=== PATIENT | female | born 1955 | race Caucasian/White ===

== ENCOUNTER → 2017-12-30 | Outpatient (CLI) | payer BC ==
[~2017-12-30] MED LIST: ALPR.5T PO; ATEN100T88 PO; CIPR750T23 PO; LIOTHYSO5 PO; LVT.112T PO; MECL-106 PO; ONDA4TAB11 PO; POTA20TA15 PO; SIMV40TA4 PO; TRIA1TAB2 PO; VENL150C PO
--- NOTE | 2017-12-30 10:03 | Diagnostic Imaging Report ---
INDICATION: Routine screening. COMPARISON: 08/19/2016 and 07/01/2015. TECHNIQUE: Screening digital mammography was performed bilaterally with a Computer Aided Detection (CAD) system. 3D tomographic images were obtained and reviewed. FINDINGS: Scattered fibroglandular densities are identified bilaterally. The parenchymal pattern is stable. No dominant mass or malignant appearing microcalcifications are seen. The axillae are unremarkable. IMPRESSION: No mammographic features suspicious for malignancy are identified. ACR BI-RADS Category 1: Negative. Result letter will be mailed to the patient. Note: At least 10% of breast cancer is not imaged by mammography. Dictated by: Dictated on workstation # [id number]
== END ==
LOC: RAD 08:18
PROVIDERS: ATTEND Nurse Practitioner Family
DX: Z12.31 Encounter for screening mammogram for malignant neoplasm of breast (principal)
CPT/HCPCS: 77067

== ENCOUNTER 2018-03-10 16:23 | Emergency (ER) | payer BC ==
[~2018-03-10] VITALS: Ht 170.2 cm; Wt 90.7 kg
[~2018-03-10 16:23] MED LIST changes: -MECL-106 PO; -ONDA4TAB11 PO
--- OUTSIDE RECORDS SUMMARY | 2018-03-10 16:28 | XMS REPORT | Clinical Summary ---
Author Author [facility] Organization [facility] Address Unknown Phone Unavailable Care Team Providers Care Principal [employer] Name Role Phone Arun Niño MD PCP Gracia Antony MD Unavailable Sushma Kelley MD Unavailable Source Comments Some departments are not documenting in the electronic medical record. If you do not see the information that you expected, contact Release of Information in the Health Information Management department at [phone] for further assistance in locating additional records.[facility] Allergies No Known Allergies Current Medications Not on file Active Problems Not on file Social History Tobacco Use Types Packs/Day Years Used Date Never Assessed Sex Assigned at Date Recorded Not on file Last Filed Vital Signs Vital Sign Reading Time Taken Blood Pressure 107/57 09/25/2007 11:59 AM [employer] Pulse 60 09/25/2007 11:59 AM [employer] Temperature 37.4 C (99.3 F) 09/25/2007 8:26 AM [employer] Respiratory Rate - - Oxygen Saturation 96% 09/25/2007 11:59 AM [employer] Inhaled Oxygen - - Concentration Weight 107.5 kg (237 lb) 09/25/2007 8:26 AM [employer] Height 170.2 cm (5' 7") 09/25/2007 8:26 AM [employer] Body Mass Index 37.12 09/25/2007 8:26 AM [employer] Plan of Treatment Health Maintenance Due Date Last Done Comments PHYSICAL (COMPREHENSIVE) 1962 EXAM PERTUSSIS VACCINE 1966 HIV SCREENING 1970 TETANUS VACCINE 1972 CERVICAL CANCER SCREENING 1985 BREAST CANCER SCREENING 1995 COLORECTAL CANCER 2005 SCREENING SHINGLES VACCINE 2015 INFLUENZA VACCINE 06/19/2018 HEPATITIS C SCREENING Completed 09/21/2007 Results Not on filefrom Last 3 Months
--- OUTSIDE RECORDS SUMMARY | 2018-03-10 16:30 | XMS REPORT | CCD ---
Author Author Betty Suárez MD, [facility] Address [address] [place] [address] Phone Care Team Providers Care Ug Designer Name Role Phone PP Unavailable CCM Unavailable Summary Purpose Interface Exchange Insurance Providers Payer name Policy type / Coverage type Covered libertarian ID Effective Begin Date Effective End Date Blue Cross Blue [facility] Blue Cross/[employer] [id number] 2017 Unknown Family history Mother Diagnosis Age At Onset Heart disease Unknown Father Diagnosis Age At Onset Stroke Unknown Heart Attack Unknown Sister Diagnosis Age At Onset Diabetes mellitus Type 2 Unknown Social History Social History Element Codes Description Effective Dates Employment Unknown 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 - [employer]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 - now working for [employer] Started May 2017 09/29/2017 Marital status Unknown 01/21/2015 Number of children Unknown 1 01/21/[address]: 554943602 Has never smoked or chewed tobacco 01/21/2015 Alcohol history Unknown occasionally drinks alcohol 01/21/2015 Allergies, Adverse Reactions, Alerts Allergies, Adverse Reactions, Alerts data not found Past Medical History Illness Codes Condition Status Onset Date Resolved Date Atrophy of thyroid (acquired) ICD-9: 244.8 ICD-10: E03.4 Active 09/29/2017 Unknown Encounter for general adult medical examination without abnormal findings ICD-9: V70.0 ICD-10: Z00.00 Active 09/29/2017 Unknown Essential (primary) hypertension ICD-9: 401.9 ICD-10: I10 Active 07/25/2016 Unknown Mixed hyperlipidemia ICD-9: 272.4 ICD-10: E78.2 Active 06/20/2016 Unknown Hyperglycemia, unspecified ICD-9: 790.29 ICD-10: R73.9 Active 03/25/2017 Unknown Hypothyroidism, unspecified ICD-9: 244.9 ICD-10: E03.9 Active 06/20/2016 Unknown Acute recurrent maxillary sinusitis ICD-9: 461.0 ICD-10: J01.01 Active 09/26/2016 Unknown Cough ICD-9: 786.2 ICD-10: R05 Active 09/26/2016 Unknown Encounter for screening mammogram for malignant neoplasm of breast ICD-9: V76.12 ICD-10: Z12.31 Active 07/25/2016 Unknown Other obesity due to excess calories ICD-9: 278.00 ICD-10: E66.09 Active 07/25/2016 Unknown Unspecified ovarian cyst, right side ICD-9: 620.2 ICD-10: N83.201 Active 07/25/2016 Unknown Hyperlipidemia Unknown Active 06/12/2015 Unknown Hypothryroidism Unknown Active 06/12/2015 Unknown HYPERLIPIDEMIA ICD-9: 272.4 Active 06/11/2015 Unknown HYPOTHYROIDISM ICD-9: 244.9 Active 06/11/2015 Unknown Hypertension Unknown Active 01/21/2015 Unknown Kidney cancer Unknown Active 01/21/2015 Unknown thyroid cancer Unknown Active 01/21/2015 Unknown ALLERGIC RHINITIS ICD- 9: 477.9 Active 01/20/2015 Unknown ESSENTIAL HYPERTENSION ICD-9: 401.9 Active 01/20/2015 Unknown Problems Condition Codes Effective Dates Condition Status Atrophy of thyroid (acquired) ICD-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.8 ICD-10: E03.4 09/29/2017 Active Encounter for general adult medical examination without abnormal findings ICD-9: V70.0 ICD-10: Z00.00 09/29/2017 Active Essential (primary) hypertension ICD-9: 401.9 ICD-10: I10 07/25/2016 Active Mixed hyperlipidemia ICD-9: 272.4 ICD-10: E78.2 06/20/2016 Active Hyperglycemia, unspecified ICD-9: 790.29 ICD-10: R73.9 03/25/2017 Active Hypothyroidism, unspecified ICD-9: 244.9 ICD-10: E03.9 06/20/2016 Active Acute recurrent maxillary sinusitis ICD-9: 461.0 ICD-10: J01.01 09/26/2016 Active Cough ICD-9: 786.2 ICD-10: R05 09/26/2016 Active Encounter for screening mammogram for malignant neoplasm of breast ICD-9: V76.12 ICD-10: Z12.31 07/25/2016 Active Other obesity due to excess calories ICD-9: 278.00 ICD-10: E66.09 07/25/2016 Active Unspecified ovarian cyst, right side ICD-9: 620.2 ICD-10: N83.201 07/25/2016 Active Hyperlipidemia Unknown 06/12/2015 Active Hypothryroidism Unknown 06/12/2015 Active HYPERLIPIDEMIA ICD-9: 272.4 06/11/2015 Active HYPOTHYROIDISM ICD-9: 244.9 06/11/2015 Active Hypertension Unknown 01/21/2015 Active Kidney cancer Unknown 01/21/2015 Active thyroid cancer Unknown 01/21/2015 Active ALLERGIC RHINITIS ICD- 9: 477.9 01/20/2015 Active ESSENTIAL HYPERTENSION ICD-9: 401.9 01/20/2015 Active Medications Medication Codes Instructions Start Date Stop Date Status Fill Instructions betamethasone valerate 0.1 % topical ointment RxNorm: 530736 1 Application TOP BID until lesions are healed, then as needed 09/29/2017 10/28/2017 Active atenolol 100 mg tablet RxNorm: 979276 1 Tablet(s) PO daily TAKE 1 BY MOUTH DAILY 08/19/2017 2018 Active D/C metoprolol 100mg atenolol 100 mg tablet RxNorm: 189235 1 Tablet(s) PO daily TAKE 1 BY MOUTH DAILY 08/09/2017 08/09/2017 Inactive metoprolol succinate ER 100 mg tablet,extended release 24 hr RxNorm: 666050 1 Tablet(s) PO daily 08/09/2017 08/18/2017 Inactive metoprolol succinate ER 100 mg tablet,extended release 24 hr RxNorm: 479108 1 Tablet(s) PO daily 08/09/2017 08/08/2017 Inactive atenolol 100 mg tablet RxNorm: 123823 1 Tablet(s) PO daily TAKE 1 BY MOUTH DAILY 07/14/2017 08/08/2017 Inactive Xanax 0.5 mg tablet RxNorm: 771106 TAKE ONE TABLET BY MOUTH EVERY 6 HOURS NEEDED FOR ANXIETY 05/31/2017 08/28/2017 Inactive Generic For:*XANAX 0.5 MG TABLET 05/30/2017 12:57:26 PM famotidine 20 mg tablet RxNorm: 979933 TAKE 1 BY MOUTH DAILY 07/25/2018 Active simvastatin 40 mg tablet RxNorm: 340734 TAKE 1 BY MOUTH DAILY 05/02/2017 07/25/2018 Active liothyronine 5 mcg tablet RxNorm: 267341 TAKE 1 BY MOUTH DAILY 02/21/2017 08/19/2017 Inactive venlafaxine ER 150 mg capsule,extended release 24 hr RxNorm: 416441 TAKE 1 BY MOUTH DAILY 02/21/2017 08/19/2017 Inactive levothyroxine 112 mcg tablet RxNorm: 443119 TAKE 1 BY MOUTH DAILY 02/21/2017 08/19/2017 Inactive atenolol 100 mg tablet RxNorm: 024969 TAKE 1 BY MOUTH DAILY 01/201707/13/2017 Inactive Xanax 0.5 mg tablet RxNorm: 950301 Tablet(s) TAKE ONE TABLET BY MOUTH EVERY 6 HOURS NEEDED FOR ANXIETY 02/08/201708/2017 Inactive Generic For:*XANAX 0.5 MG TABLET 01/03/2017 9:54:27 AM Topicort 0.25 % topical cream RxNorm: 40590 1 Application TOP UD 02/07/2017 02/16/2017 Inactive Xanax 0.5 mg tablet RxNorm: 263660 TAKE ONE TABLET BY MOUTH EVERY 6 HOURS NEEDED FOR ANXIETY 01/03/2017 02/07/2017 Inactive Generic For:*XANAX 0.5 MG TABLET 01/03/2017 9:54:27 AM Tamiflu 75 mg capsule RxNorm: 230062 1 Capsule(s) PO daily 11/2411/23/2016 Inactive Tamiflu 75 mg capsule RxNorm: 402182 1 Capsule(s) PO daily 11/2412/03/2016 Inactive Flonase Allergy Relief 50 mcg/actuation nasal spray, suspension RxNorm: 9041496 [place] 2 [place] NASAL daily 11/15/2016 03/14/2017 Inactive [SAVINGS FOR NON- COVERED DRUGS -- BIN:[id number], PCN: ASPROD1, Group: XXXXX, ID# [id number], Questions : . THIS IS NOT INSURANCE.] levothyroxine 112 mcg tablet RxNorm: 700129 TAKE 1 BY MOUTH DAILY 10/27/2016 02/20/2017 Inactive Diflucan 150 mg tablet RxNorm: 159077 1 Tablet(s) PO daily 10/10/2016 Inactive Diflucan 150 mg tablet RxNorm: 398011 1 Tablet(s) PO daily 10/17/2016 Inactive Augmentin 500 mg-125 mg tablet RxNorm: 963441 1 Tablet(s) PO TID 09/27/2016 10/03/2016 Inactive Kenalog 40 mg/mL suspension for injection RxNorm: 2178039 Milliliter(s) Inj 09/27/2016 09/27/2016 Inactive Xanax 0.5 mg tablet RxNorm: 631704 Tablet(s) TAKE ONE TABLET BY MOUTH EVERY 6 HOURS NEEDED FOR ANXIETY 09/03/2016 Inactive Contrave 8 mg-90 mg tablet,extended release RxNorm: 0049520 2 Tablet(s) PO BID 06/21/2016 03/24/2017 Inactive may give 90 day supply if covered by insurance-pt bringing copay card Topicort 0.25 % topical cream RxNorm: 60945 1 Application TOP UD 06/21/2016 06/30/2016 Inactive Xanax 0.5 mg tablet RxNorm: 649407 Tablet(s) TAKE ONE TABLET BY MOUTH EVERY 6 HOURS NEEDED FOR ANXIETY 05/06/2016 Inactive Generic For:*XANAX 0.5 MG TABLET N O T I C E PRESCRIPTION PREVIOUSLY AUTHORIZED BY DOCTOR:TITA SAMSON 04/14/2015 10:10:53 AM Xanax 0.5 mg tablet RxNorm: 696597 Tablet(s) TAKE ONE TABLET BY MOUTH EVERY 6 HOURS NEEDED FOR ANXIETY 05/04/2016 Inactive Generic For:*XANAX 0.5 MG TABLET N O T I C E PRESCRIPTION PREVIOUSLY AUTHORIZED BY DOCTOR:TITA SAMSON 04/14/2015 10:10:53 AM liothyronine 5 mcg tablet RxNorm: 952931 1 Tablet(s) PO daily 04/16/2016 02/20/2017 Inactive famotidine 20 mg tablet RxNorm: 368171 1 Tablet(s) PO daily 04/10/2017 Inactive atenolol 100 mg tablet RxNorm: 777215 1 Tablet(s) PO daily 02/20/2017 Inactive simvastatin 40 mg tablet RxNorm: 107596 1 Tablet(s) PO daily 04/10/2017 Inactive levothyroxine 112 mcg tablet RxNorm: 701704 1 Tablet(s) PO daily 04/16/2016 10/12/2016 Inactive venlafaxine ER 150 mg capsule,extended release 24 hr RxNorm: 142305 1 Capsule(s) PO daily 04/16/2016 02/20/2017 Inactive Flonase Allergy Relief 50 mcg/actuation nasal spray, suspension RxNorm: 6844981 [place] 2 [place] NASAL daily 11/14/2015 03/12/2016 Inactive [SAVINGS FOR NON- COVERED DRUGS -- BIN:[id number], PCN: ASPROD1, Group: XXXXX, ID# [id number], Questions : . THIS IS NOT INSURANCE.] Zithromax Z-Jean 250 mg tablet RxNorm: 363184 1 Tablet(s) PO 04/15/2016 Inactive zpack x 1 Xanax 0.5 mg tablet RxNorm: 092432 Tablet(s) TAKE ONE TABLET BY MOUTH EVERY 6 HOURS NEEDED FOR ANXIETY 10/23/201510/2015 Inactive Generic For:*XANAX 0.5 MG TABLET N O T I C E PRESCRIPTION PREVIOUSLY AUTHORIZED BY DOCTOR:TITA SAMSON 04/14/2015 10:10:53 AM Xanax 0.5 mg tablet RxNorm: 412242 Tablet(s) TAKE ONE TABLET BY MOUTH EVERY 6 HOURS NEEDED FOR ANXIETY 06/19/2015 Inactive Generic For:*XANAX 0.5 MG TABLET N O T I C E PRESCRIPTION PREVIOUSLY AUTHORIZED BY DOCTOR:TITA SAMSON 04/14/2015 10:10:53 AM Xanax 0.5 mg tablet RxNorm: 633639 TAKE ONE TABLET BY MOUTH EVERY 6 HOURS NEEDED FOR ANXIETY 04/15/2015 05/13/2015 Inactive Generic For:*XANAX 0.5 MG TABLET N O T I C E PRESCRIPTION PREVIOUSLY AUTHORIZED BY DOCTOR:TITA SAMSON 04/14/2015 10:10:53 AM Levaquin 500 mg tablet RxNorm: 298168 1 Tablet(s) PO daily 03/16/2015 Inactive Levaquin 500 mg tablet RxNorm: 135286 1 Tablet(s) PO daily 03/09/2015 Inactive amoxicillin 500 mg capsule RxNorm: 801794 1 Capsule(s) PO TID 02/21/2015 03/02/2015 Inactive instructed to take probiotic while on abt amoxicillin 500 mg capsule RxNorm: 435919 1 Capsule(s) PO TID 02/21/2015 02/20/2015 Inactive instructed to take probiotic while on abt Flonase Allergy Relief 50 mcg/actuation nasal spray, suspension RxNorm: 2 [place] NASAL daily 02/20/2015 06/19/2015 Inactive [SAVINGS FOR NON-COVERED DRUGS -- BIN:[id number], PCN: ASPROD1, Group: XXXXX, ID# [email or web address], Questions: [phone]. THIS IS NOT INSURANCE.] Xanax 0.5 mg tablet RxNorm: 791094 1 Tablet(s) PO Q6 201404/15/2015 Inactive atenolol 100 mg tablet RxNorm: 109638 1 Tablet(s) PO daily 10/201404/15/2016 Inactive famotidine 20 mg tablet RxNorm: 124637 1 Tablet(s) PO daily 10/201404/15/2016 Inactive levothyroxine 112 mcg tablet RxNorm: 410181 1 Tablet(s) PO daily 02/18/2015 04/15/2016 Inactive famotidine 20 mg tablet RxNorm: 840874 1 Tablet(s) PO daily 10/201402/17/2015 Inactive simvastatin 40 mg tablet RxNorm: 970528 1 Tablet(s) PO daily 04/15/2016 Inactive venlafaxine ER 150 mg capsule,extended release 24 hr RxNorm: 972689 1 Capsule(s) PO daily 02/18/2015 04/15/2016 Inactive liothyronine 5 mcg tablet RxNorm: 958370 1 Tablet(s) PO daily 02/18/2015 04/15/2016 Inactive Flonase Allergy Relief 50 mcg/actuation nasal spray, suspension RxNorm: 2 [place] NASAL daily 01/21/2015 02/19/2015 Inactive [SAVINGS FOR NON-COVERED DRUGS -- BIN:[id number], PCN: ASPROD1, Group: XXXXX, ID# [id number], Questions: [phone]. THIS IS NOT INSURANCE.] triamcinolone acetonide 40 mg/mL suspension for injection RxNorm: 4793105 1 Milliliter(s) Inj 01/21/2015 01/21/2015 Inactive [SAVINGS FOR NON-COVERED DRUGS -- BIN:613731, PCN: ASPROD1, Group: XXXXX, ID# [email or web address], Questions: [phone]. THIS IS NOT INSURANCE.] atenolol 100 mg tablet RxNorm: 385841 1 Tablet(s) PO daily No Start Date 02/17/2015 Inactive liothyronine 5 mcg tablet RxNorm: 399414 1 Tablet(s) PO daily No Start Date 02/17/2015 Inactive Xanax 0.5 mg tablet RxNorm: 365453 1 Tablet(s) PO Q6 No Start Date 02/17/2015 Inactive Zithromax Z-Jean 250 mg tablet RxNorm: 271215 1 Tablet(s) PO No Start Date 11/13/2015 Inactive zpack x 1 simvastatin 40 mg tablet RxNorm: 383653 1 Tablet(s) PO daily No Start Date 02/17/2015 Inactive venlafaxine ER 150 mg capsule,extended release 24 hr RxNorm: 559196 1 Capsule(s) PO daily No Start Date 02/17/2015 Inactive levothyroxine 112 mcg capsule RxNorm: 441269 1 Capsule(s) PO daily No Start Date 02/17/2015 Inactive Medication Administered Medication Codes Instructions Start Date Status Kenalog 40 mg/mL suspension for injection RxNorm: 1232048 Milliliter 09/27/2016 No longer Active triamcinolone acetonide 40 mg/mL suspension for injection RxNorm: 8772004 1Milliliter 01/21/2015 No longer Active Immunizations Vaccine Codes Date Status Influenza CVX: 141 03/19/2014 completed Assessments Condition Codes Effective Dates Encounter for general adult medical examination without abnormal findings ICD-10: Z00.00 ICD-9: V70.0 09/29/2017 Atrophy of thyroid (acquired) ICD-10: E03.4 ICD-9: 244.8 09/29/2017 Mixed hyperlipidemia ICD-10: E78.2 ICD-9: 272.4 09/29/2017 Essential (primary) hypertension ICD-10: I10 ICD-9: 401.9 09/29/2017 Hypothyroidism, unspecified ICD-10: E03.9 ICD-9: 244.9 03/25/2017 Hyperglycemia, unspecified ICD-10: R73.9 ICD-9: 790.29 03/25/2017 Acute recurrent maxillary sinusitis ICD-10: J01.01 ICD-9: 461.0 09/27/2016 Cough ICD-10: R05 ICD-9: 786.2 09/27/2016 Encounter for screening mammogram for malignant neoplasm of breast ICD-10: Z12.31 ICD-9: V76.12 07/26/2016 Other obesity due to excess calories ICD-10: E66.09 ICD-9: 278.00 07/26/2016 Unspecified ovarian cyst, right side ICD-10: N83.201 ICD-9: 620.2 07/26/2016 HYPERLIPIDEMIA ICD-9: 272.4 06/12/2015 HYPOTHYROIDISM ICD-9: 244.9 06/12/2015 ESSENTIAL HYPERTENSION ICD-9: 401.9 06/12 ALLERGIC RHINITIS ICD-9: 477.9 2014 Reason For Visit Reason For Visit Effective Dates Notes hyperlipidemia 09/29/2017 hyperlipidemia 03/25/2017 on simvastatin cough 09/27/2016 depression 07/26/2016 on simvastatin depression 06/21/2016 on simvastatin depression 12/19/2015 on simvastatin depression 06/12/2015 on simvastatin cough 01/21/2015 Results Observation Observation Code Item Item Code Result Date Comp Metabolic Rhq327 NA 141 mEq/L 09/29/2017 Comp Metabolic Zeg675 K 4.3 mEq/L 09/29/2017 Comp Metabolic Wdp006 CL 106 mEq/L 09/29/2017 Comp Metabolic Nsq564 CO2 28.0 mEq/L 09/29/2017 Comp Metabolic Sjy115 ANION GAP 11 09/29/2017 Comp Metabolic Ksg928 GLUCOSE 105 mg/dL 09/29/2017 Comp Metabolic Mcz220 Creat 0.8 mg/dL 09/29/2017 Comp Metabolic Hva071 eGFR 73 ml/min/1.73m2 09/29/2017 Comp Metabolic Boq574 BUN 15 mg/dL 09/29/2017 Comp Metabolic Iyu724 B/C Ratio 17.9 Ratio 09/29/2017 Comp Metabolic Axv024 CALCIUM 9.7 mg/dL 09/29/2017 Comp Metabolic Jqk299 ALK PHOS 103 U/L 09/29/2017 Comp Metabolic Vto392 AST(SGOT) 17 U/L 09/29/2017 Comp Metabolic Ngy081 ALT(SGPT) 22 U/L 09/29/2017 Comp Metabolic Kml709 BILI T 0.6 mg/dL 09/29/2017 Comp Metabolic Cih015 ALBUMIN 4.0 g/dL 09/29/2017 Comp Metabolic Caj355 TPRO 7.0 g/dL 09/29/2017 Comp Metabolic Ydy073 GLOB 3.0 g/dL 09/29/2017 Comp Metabolic Hoi466 A/G Ratio 1.3 Ratio 09/29/2017 Comp Metabolic Ifz941 Osmo 282 mOsmo 09/29/2017 Free T4 Die997 FREE T4 1.20 ng/dL 09/29/2017 Cbc With Differential Ord2 WBC 5.74 K/ul 09/29/2017 Cbc With Differential Ord2 RBC 4.84 M/ul 09/29/2017 Cbc With Differential Ord2 HGB 14.1 g/dl 09/29/2017 Cbc With Differential Ord2 Neut% 67.7 % 09/29/2017 Cbc With Differential Ord2 HCT 43.0 % 09/29/2017 Cbc With Differential Ord2 MCV 88.8 fl 09/29/2017 Cbc With Differential Ord2 Lymph% 20.7 % 09/29/2017 Cbc With Differential Ord2 MCH 29.1 pg 09/29/2017 Cbc With Differential Ord2 [place]% 9.4 % 09/29/2017 Cbc With Differential Ord2 MCHC 32.8 pg 09/29/2017 Cbc With Differential Ord2 Eos% 1.9 % 09/29/2017 Cbc With Differential Ord2 PLT 283 K/ul 09/29/2017 Cbc With Differential Ord2 Baso% 0.3 % 09/29/2017 Cbc With Differential Ord2 RDW 13.6 % 09/29/2017 Cbc With Differential Ord2 Neut ABS# 3.88 K/ul 09/29/2017 Cbc With Differential Ord2 Lymph ABS# 1.19 K/ul 09/29/2017 Cbc With Differential Ord2 [place] ABS# 0.5 K/ul 09/29/2017 Cbc With Differential Ord2 Eos ABS# 0.1 K/ul 09/29/2017 Cbc With Differential Ord2 Baso ABS# 0.0 K/ul 09/29/2017 Lipid Ord30 CHOL 177 mg/dL 09/29/2017 Lipid Ord30 HDL 49.0 mg/dl 09/29/2017 Lipid Ord30 TRIG 150 mg/dL 09/29/2017 Lipid Ord30 LDL 98 mg/dL 09/29/2017 Lipid Ord30 C/HDL 3.6 Ratio 09/29/2017 Tsh Ord6 hTSH II 0.10 uIU/mL 09/29/2017 Cbc With Differential Ord2 WBC 4.95 K/ul 03/25/2017 Cbc With Differential Ord2 RBC 4.64 M/ul 03/25/2017 Cbc With Differential Ord2 HGB 13.9 g/dl 03/25/2017 Cbc With Differential Ord2 Neut% 54.4 % 03/25/2017 Cbc With Differential Ord2 HCT 42.5 % 03/25/2017 Cbc With Differential Ord2 MCV 91.6 fl 03/25/2017 Cbc With Differential Ord2 Lymph% 33.1 % 03/25/2017 Cbc With Differential Ord2 MCH 30.0 pg 03/25/2017 Cbc With Differential Ord2 [place]% 9.5 % 03/25/2017 Cbc With Differential Ord2 MCHC 32.7 pg 03/25/2017 Cbc With Differential Ord2 Eos% 2.6 % 03/25/2017 Cbc With Differential Ord2 PLT 296 K/ul 03/25/2017 Cbc With Differential Ord2 Baso% 0.4 % 03/25/2017 Cbc With Differential Ord2 RDW 13.3 % 03/25/2017 Cbc With Differential Ord2 Neut ABS# 2.69 K/ul 03/25/2017 Cbc With Differential Ord2 Lymph ABS# 1.64 K/ul 03/25/2017 Cbc With Differential Ord2 [place] ABS# 0.5 K/ul 03/25/2017 Cbc With Differential Ord2 Eos ABS# 0.1 K/ul 03/25/2017 Cbc With Differential Ord2 Baso ABS# 0.0 K/ul 03/25/2017 Lipid Ord30 CHOL 232 mg/dL 03/25/2017 Lipid Ord30 HDL 45.0 mg/dl 03/25/2017 Lipid Ord30 TRIG 244 mg/dL 03/25/2017 Lipid Ord30 LDL 138 mg/dL 03/25/2017 Lipid Ord30 C/HDL 5.2 Ratio 03/25/2017 Tsh Ord6 hTSH II 0.08 uIU/mL 03/25/2017 Comp Metabolic Puq706 NA 140 mEq/L 03/25/2017 Comp Metabolic Tbr766 K 4.1 mEq/L 03/25/2017 Comp Metabolic Oyw409 CL 105 mEq/L 03/25/2017 Comp Metabolic Pgp655 CO2 26.0 mEq/L 03/25/2017 Comp Metabolic Aji262 ANION GAP 13 03/25/2017 Comp Metabolic Www441 GLUCOSE 127 mg/dL 03/25/2017 Comp Metabolic Xpt849 Creat 0.9 mg/dL 03/25/2017 Comp Metabolic Myb585 eGFR 71 ml/min/1.73m2 03/25/2017 Comp Metabolic Bst941 BUN 13 mg/dL 03/25/2017 Comp Metabolic Bho355 B/C Ratio 15.1 Ratio 03/25/2017 Comp Metabolic Xzg964 CALCIUM 9.4 mg/dL 03/25/2017 Comp Metabolic Hlb284 ALK PHOS 112 U/L 03/25/2017 Comp Metabolic Zyd439 AST(SGOT) 21 U/L 03/25/2017 Comp Metabolic Lkl577 ALT(SGPT) 26 U/L 03/25/2017 Comp Metabolic Ksp912 BILI T 0.6 mg/dL 03/25/2017 Comp Metabolic Vlp122 ALBUMIN 4.0 g/dL 03/25/2017 Comp Metabolic Vrh523 TPRO 6.6 g/dL 03/25/2017 Comp Metabolic Qex297 GLOB 2.6 g/dL 03/25/2017 Comp Metabolic Isi752 A/G Ratio 1.5 Ratio 03/25/2017 Comp Metabolic Kyi404 Osmo 281 mOsmo 03/25/2017 Free T4 Uag212 FREE T4 1.02 ng/dL 03/25/2017 %Hba1C Buk559 % HbA1c 63706-1 5.7 % 03/25/2017 %Hba1C Nik130 Gluc Ave 117 mg/dL 03/25/2017 Free T4 Hux425 FREE T4 0.86 ng/dL 06/21/2016 Cbc With Differential Ord2 WBC 4.67 K/ul 06/21/2016 Cbc With Differential Ord2 RBC 4.66 M/ul 06/21/2016 Cbc With Differential Ord2 HGB 13.6 g/dl 06/21/2016 Cbc With Differential Ord2 Neut% 55.9 % 06/21/2016 Cbc With Differential Ord2 HCT 41.6 % 06/21/2016 Cbc With Differential Ord2 MCV 89.3 fl 06/21/2016 Cbc With Differential Ord2 Lymph% 30.4 % 06/21/2016 Cbc With Differential Ord2 MCH 29.2 pg 06/21/2016 Cbc With Differential Ord2 [place]% 10.5 % 06/21/2016 Cbc With Differential Ord2 MCHC 32.7 pg 06/21/2016 Cbc With Differential Ord2 Eos% 3.0 % 06/21/2016 Cbc With Differential Ord2 PLT 273 K/ul 06/21/2016 Cbc With Differential Ord2 Baso% 0.2 % 06/21/2016 Cbc With Differential Ord2 RDW 13.3 % 06/21/2016 Cbc With Differential Ord2 Neut ABS# 2.61 K/ul 06/21/2016 Cbc With Differential Ord2 Lymph ABS# 1.42 K/ul 06/21/2016 Cbc With Differential Ord2 [place] ABS# 0.5 K/ul 06/21/2016 Cbc With Differential Ord2 Eos ABS# 0.1 K/ul 06/21/2016 Cbc With Differential Ord2 Baso ABS# 0.0 K/ul 06/21/2016 Lipid Ord30 CHOL 209 mg/dL 06/21/2016 Lipid Ord30 HDL 48.0 mg/dl 06/21/2016 Lipid Ord30 TRIG 199 mg/dL 06/21/2016 Lipid Ord30 LDL 121 mg/dL 06/21/2016 Lipid Ord30 C/HDL 4.4 Ratio 06/21/2016 Comp Metabolic Tsx036 NA 139 mEq/L 06/21/2016 Comp Metabolic Xjx008 K 4.2 mEq/L 06/21/2016 Comp Metabolic Nqn083 CL 104 mEq/L 06/21/2016 Comp Metabolic Gan753 CO2 28.0 mEq/L 06/21/2016 Comp Metabolic Mtn937 ANION GAP 11 06/21/2016 Comp Metabolic Tgm136 GLUCOSE 112 mg/dL 06/21/2016 Comp Metabolic Gwx915 Creat 0.9 mg/dL 06/21/2016 Comp Metabolic Mwg809 eGFR 72 ml/min/1.73m2 06/21/2016 Comp Metabolic Kpa406 BUN 14 mg/dL 06/21/2016 Comp Metabolic Tor404 B/C Ratio 16.5 Ratio 06/21/2016 Comp Metabolic Xwj128 CALCIUM 9.2 mg/dL 06/21/2016 Comp Metabolic Qtm604 ALK PHOS 124 U/L 06/21/2016 Comp Metabolic Ogd620 AST(SGOT) 17 U/L 06/21/2016 Comp Metabolic Swa916 ALT(SGPT) 20 U/L 06/21/2016 Comp Metabolic Zov658 BILI T 0.5 mg/dL 06/21/2016 Comp Metabolic Abp725 ALBUMIN 3.9 g/dL 06/21/2016 Comp Metabolic Hoq475 TPRO 6.7 g/dL 06/21/2016 Comp Metabolic Eev060 GLOB 2.8 g/dL 06/21/2016 Comp Metabolic Cxa885 A/G Ratio 1.4 Ratio 06/21/2016 Comp Metabolic Akr922 Osmo 279 mOsmo 06/21/2016 Tsh Ord6 hTSH II 0.21 uIU/mL 06/21/2016 Tsh Ord6 hTSH II 0.11 uIU/mL 12/23/2015 Cbc With Differential Ord2 WBC 4.65 K/ul 12/23/2015 Cbc With Differential Ord2 RBC 4.73 M/ul 12/23/2015 Cbc With Differential Ord2 HGB 13.6 g/dl 12/23/2015 Cbc With Differential Ord2 Neut% 56.1 % 12/23/2015 Cbc With Differential Ord2 HCT 41.5 % 12/23/2015 Cbc With Differential Ord2 MCV 87.7 fl 12/23/2015 Cbc With Differential Ord2 Lymph% 30.8 % 12/23/2015 Cbc With Differential Ord2 MCH 28.8 pg 12/23/2015 Cbc With Differential Ord2 [place]% 10.3 % 12/23/2015 Cbc With Differential Ord2 MCHC 32.8 pg 12/23/2015 Cbc With Differential Ord2 Eos% 2.8 % 12/23/2015 Cbc With Differential Ord2 PLT 286 K/ul 12/23/2015 Cbc With Differential Ord2 Baso% 0.0 % 12/23/2015 Cbc With Differential Ord2 RDW 13.8 % 12/23/2015 Cbc With Differential Ord2 Neut ABS# 2.61 K/ul 12/23/2015 Cbc With Differential Ord2 Lymph ABS# 1.43 K/ul 12/23/2015 Cbc With Differential Ord2 [place] ABS# 0.5 K/ul 12/23/2015 Cbc With Differential Ord2 Eos ABS# 0.1 K/ul 12/23/2015 Cbc With Differential Ord2 Baso ABS# 0.0 K/ul 12/23/2015 Cbc With Differential Ord2 New Analyzer Notice Please note new ref ranges starting 10-01-2015 due to implemntation of new five part differential hematolgy analyzer. 12/23/2015 Urinalysis Ord28 U-Color Yellow 12/23/2015 Urinalysis Ord28 U-Clarity Clear 12/23/2015 Urinalysis Ord28 U-Gluc Negative 12/23/2015 Urinalysis Ord28 U-Bili Negative 12/23/2015 Urinalysis Ord28 U-Ketone Negative 12/23/2015 Urinalysis Ord28 U-SG 1.015 12/23/2015 Urinalysis Ord28 U-Blood Negative 12/23/2015 Urinalysis Ord28 U-pH 5.5 12/23/2015 Urinalysis Ord28 U-Protein Negative 12/23/2015 Urinalysis Ord28 U-Urobilin 0.2 E.U./dL E.U./dL 12/23/2015 Urinalysis Ord28 U-Nitrites Negative 12/23/2015 Urinalysis Ord28 U-Leuk Small 12/23/2015 Urinalysis Ord28 U-Bact TRACE 12/23/2015 Urinalysis Ord28 U-Squamous Epi 0-5 per/HPF 12/23/2015 Urinalysis Ord28 U-Crystal None per/HPF 12/23/2015 Urinalysis Ord28 U-Mucus None 12/23/2015 Urinalysis Ord28 U-Renal tubular epi None 12/23/2015 Urinalysis Ord28 U-RBC None per/HPF 12/23/2015 Urinalysis Ord28 U-Transitional epi None per/HPF 12/23/2015 Urinalysis Ord28 U-WBC 10-20 per/HPF 12/23/2015 Urinalysis Ord28 U-Cast None per/HPF 12/23/2015 Urinalysis Ord28 U-VOL VOLUME SUFFICIENT (10mL) 12/23/2015 Urinalysis Ord28 U-Yeast NEGATIVE 12/23/2015 Urinalysis Ord28 U-Com Urine saved if culture needed (specimen acceptable for 48 hours from collection if refrigerated) 12/23/2015 Comp Metabolic Obx355 NA 137 mEq/L 12/23/2015 Comp Metabolic Ijg234 K 4.1 mEq/L 12/23/2015 Comp Metabolic Vog542 CL 102 mEq/L 12/23/2015 Comp Metabolic Epn159 CO2 26.0 mEq/L 12/23/2015 Comp Metabolic Akp029 ANION GAP 13 12/23/2015 Comp Metabolic Ejz273 GLUCOSE 112 mg/dL 12/23/2015 Comp Metabolic Kkb476 Creat 0.9 mg/dL 12/23/2015 Comp Metabolic Sue428 eGFR 70 ml/min/1.73m2 12/23/2015 Comp Metabolic Qgv309 BUN 16 mg/dL 12/23/2015 Comp Metabolic Tyo734 B/C Ratio 18.2 Ratio 12/23/2015 Comp Metabolic Omk113 CALCIUM 9.5 mg/dL 12/23/2015 Comp Metabolic Asu442 ALK PHOS 117 U/L 12/23/2015 Comp Metabolic Oej253 AST(SGOT) 18 U/L 12/23/2015 Comp Metabolic Hjj532 ALT(SGPT) 22 U/L 12/23/2015 Comp Metabolic Ibg149 BILI T 0.6 mg/dL 12/23/2015 Comp Metabolic Grc523 ALBUMIN 4.1 g/dL 12/23/2015 Comp Metabolic Ylk943 TPRO 6.9 g/dL 12/23/2015 Comp Metabolic Bxf642 GLOB 2.8 g/dL 12/23/2015 Comp Metabolic Qte518 A/G Ratio 1.5 Ratio 12/23/2015 Comp Metabolic Vam552 Osmo 276 mOsmo 12/23/2015 Lipid Ord30 CHOL 194 mg/dL 12/23/2015 Lipid Ord30 HDL 48.0 mg/dl 12/23/2015 Lipid Ord30 TRIG 240 mg/dL 12/23/2015 Lipid Ord30 LDL 98 mg/dL 12/23/2015 Lipid Ord30 C/HDL 4.0 Ratio 12/23/2015 Free T4 [id number] FREE T4 1.00 ng/dL 12/23/2015 Free T4 Bln674 FREE T4 0.99 ng/dL 06/12/2015 Cbc With Differential Ord2 WBC 5.1 K/uL 06/12/2015 Cbc With Differential Ord2 LYM 1.4 K/uL 06/12/2015 Cbc With Differential Ord2 LYM% 27.9 % 06/12/2015 Cbc With Differential Ord2 NEUT/GRAN 3.4 K/uL 06/12/2015 Cbc With Differential Ord2 NEUT/GRAN % 65.8 % 06/12/2015 Cbc With Differential Ord2 MID 0.3 K/uL 06/12/2015 Cbc With Differential Ord2 MID% 6.3 % 06/12/2015 Cbc With Differential Ord2 RBC 4.70 M/uL 06/12/2015 Cbc With Differential Ord2 HGB 13.3 g/dL 06/12/2015 Cbc With Differential Ord2 HCT 42.8 % 06/12/2015 Cbc With Differential Ord2 MCV 91 fL 06/12/2015 Cbc With Differential Ord2 MCH 28 pg 06/12/2015 Cbc With Differential Ord2 MCHC 31 g/dL 06/12/2015 Cbc With Differential Ord2 PLT 281 K/uL 06/12/2015 Cbc With Differential Ord2 RDW 14.4 % 06/12/2015 Tsh Ord6 hTSH II 0.17 uIU/mL 06/12/2015 Lipid Ord30 CHOL 203 mg/dL 06/12/2015 Lipid Ord30 HDL 52.0 mg/dl 06/12/2015 Lipid Ord30 TRIG 145 mg/dL 06/12/2015 Lipid Ord30 LDL 122 mg/dL 06/12/2015 Lipid Ord30 C/HDL 3.9 Ratio 06/12/2015 Comp Metabolic Ypl344 NA 138 mEq/L 06/12/2015 Comp Metabolic Ayw819 K 4.4 mEq/L 06/12/2015 Comp Metabolic Tur207 CL 102 mEq/L 06/12/2015 Comp Metabolic Rli703 CO2 27.0 mEq/L 06/12/2015 Comp Metabolic Ylt900 ANION GAP 13 06/12/2015 Comp Metabolic Rco432 GLUCOSE 99 mg/dL 06/12/2015 Comp Metabolic Eyb637 Creat 0.9 mg/dL 06/12/2015 Comp Metabolic Xcn002 eGFR 67 ml/min/1.73m2 06/12/2015 Comp Metabolic Puw626 BUN 13 mg/dL 06/12/2015 Comp Metabolic Oof422 B/C Ratio 14.3 Ratio 06/12/2015 Comp Metabolic Wng452 CALCIUM 9.6 mg/dL 06/12/2015 Comp Metabolic Tgv528 ALK PHOS 109 U/L 06/12/2015 Comp Metabolic Rqc672 AST(SGOT) 15 U/L 06/12/2015 Comp Metabolic Kro066 ALT(SGPT) 17 U/L 06/12/2015 Comp Metabolic Esy131 BILI T 0.6 mg/dL 06/12/2015 Comp Metabolic Zqe218 ALBUMIN 4.0 g/dL 06/12/2015 Comp Metabolic Skl021 TPRO 6.8 g/dL 06/12/2015 Comp Metabolic Ekp782 GLOB 2.8 g/dL 06/12/2015 Comp Metabolic Ygl586 A/G Ratio 1.4 Ratio 06/12/2015 Comp Metabolic Unn610 Osmo 276 mOsmo 06/12/2015 Review of Systems System Result Effective Dates Constitutional No recent illness 2017 Constitutional No anorexia 09/29/2017 Constitutional No night sweats 2017 Constitutional No chills 09/29/2017 Constitutional No fever 09/29/2017 Eyes No eye discharge 09/29/2017 Eyes No eye erythema 09/29/2017 Ears/Nose/Throat/Neck No dizziness 2017 Ears/Nose/Throat/Neck No headache 2017 Cardiovascular No chest pain/pressure 07/2018 Cardiovascular No dyspnea 09/29/2017 Respiratory No chest congestion 2017 Respiratory No chest tightness 2017 Respiratory No cough 09/29/2017 Respiratory No dyspnea 09/29/2017 Gastrointestinal No abdominal pain 2017 Gastrointestinal No constipation 2017 Gastrointestinal No diarrhea 09/29/2017 Gastrointestinal No nausea 09/29/2017 Genitourinary/Nephrology No anuria/oliguria 09/29/2017 Genitourinary/Nephrology No dysuria 09/29 Musculoskeletal No stiffness 09/29/2017 Musculoskeletal No swelling 09/29/2017 Dermatologic No rash 09/29/2017 Dermatologic No sores 09/29/2017 Neurologic No alteration of consciousness 09/29/2017 Neurologic No mental status change 2017 Psychiatric No anxiety 09/29/2017 Psychiatric No depression 09/29/2017 Endocrine No dry or coarse skin 2017 Constitutional No recent illness 2016 Constitutional No anorexia 03/25/2017 Constitutional No night sweats 2016 Constitutional No chills 03/25/2017 Constitutional No fever 03/25/2017 Ears/Nose/Throat/Neck No dizziness 2016 Ears/Nose/Throat/Neck No headache 2016 Cardiovascular No chest pain/pressure 03/2017 Cardiovascular No dyspnea 03/25/2017 Respiratory No chest congestion 2016 Respiratory No chest tightness 2016 Respiratory No cough 03/25/2017 Respiratory No dyspnea 03/25/2017 Gastrointestinal No abdominal pain 2016 Gastrointestinal No constipation 2016 Gastrointestinal No diarrhea 03/25/2017 Gastrointestinal No nausea 03/25/2017 Genitourinary/Nephrology No anuria/oliguria 03/25/2017 Genitourinary/Nephrology No dysuria 03/25 Musculoskeletal No stiffness 03/25/2017 Musculoskeletal No swelling 03/25/2017 Dermatologic No rash 03/25/2017 Dermatologic No sores 03/25/2017 Neurologic No alteration of consciousness 03/25/2017 Neurologic No mental status change 2016 Eyes No eye discharge 03/25/2017 Eyes No eye erythema 03/25/2017 Psychiatric No anxiety 03/25/2017 Psychiatric No depression 03/25/2017 Endocrine No dry or coarse skin 2016 Constitutional recent illness 09/27/2016 Constitutional No anorexia 09/27/2016 Constitutional No night sweats 2016 Constitutional No chills 09/27/2016 Constitutional No diaphoresis 09/27/2016 Constitutional fatigue 09/27/2016 Constitutional No fever 09/27/2016 Constitutional No insomnia 09/27/2016 Constitutional No malaise 09/27/2016 Constitutional No weight loss 09/27/2016 Constitutional No weight gain 09/27/2016 Eyes No eye erythema 09/27/2016 Eyes No eye discharge 09/27/2016 Ears/Nose/Throat/Neck No dizziness 2016 Ears/Nose/Throat/Neck headache 2016 Ears/Nose/Throat/Neck nasal discharge 05/2017 Ears/Nose/Throat/Neck No otalgia 2016 Ears/Nose/Throat/Neck sinus congestion Ears/Nose/Throat/Neck No sore throat 05/2017 Cardiovascular No chest pain/pressure 05/2017 Respiratory cough 09/27/2016 Respiratory No productive sputum 2016 Gastrointestinal No abdominal pain 2016 Gastrointestinal No constipation 2016 Gastrointestinal No diarrhea 09/27/2016 Genitourinary/Nephrology No dysuria 09/27 Musculoskeletal No joint complaint 2016 Dermatologic No rash 09/27/2016 Neurologic No alteration of consciousness 09/27/2016 Constitutional No recent illness 2015 Constitutional No chills 07/26/2016 Constitutional No fever 07/26/2016 Ears/Nose/Throat/Neck No headache 2015 Ears/Nose/Throat/Neck No dizziness 2015 Cardiovascular No dyspnea 07/26/2016 Cardiovascular No chest pain/pressure 03/2016 Respiratory No chest congestion 2015 Respiratory No chest tightness 2015 Respiratory No cough 07/26/2016 Respiratory No dyspnea 07/26/2016 Gastrointestinal No abdominal pain 2015 Gastrointestinal No constipation 2015 Gastrointestinal No diarrhea 07/26/2016 Gastrointestinal No nausea 07/26/2016 Genitourinary/Nephrology No dysuria 07/26 Genitourinary/Nephrology No anuria/oliguria 07/26/2016 Musculoskeletal No stiffness 07/26/2016 Musculoskeletal No swelling 07/26/2016 Dermatologic No rash 07/26/2016 Dermatologic No sores 07/26/2016 Neurologic No mental status change 2015 Neurologic No alteration of consciousness 07/26/2016 Constitutional No recent illness 2015 Constitutional No anorexia 06/21/2016 Constitutional No night sweats 2015 Constitutional No diaphoresis 06/21/2016 Constitutional No chills 06/21/2016 Constitutional fatigue 06/21/2016 Constitutional No fever 06/21/2016 Constitutional No insomnia 06/21/2016 Constitutional No malaise 06/21/2016 Constitutional No weight loss 06/21/2016 Constitutional No weight gain 06/21/2016 Eyes No eye discharge 06/21/2016 Eyes No eye erythema 06/21/2016 Ears/Nose/Throat/Neck No dizziness 2015 Ears/Nose/Throat/Neck No headache 2015 Ears/Nose/Throat/Neck nasal allergies 11/2015 Cardiovascular No chest pain/pressure 11/2015 Cardiovascular No dyspnea 06/21/2016 Respiratory No productive sputum 2015 Respiratory No cough 06/21/2016 Gastrointestinal No abdominal pain 2015 Gastrointestinal No constipation 2015 Gastrointestinal No diarrhea 06/21/2016 Genitourinary/Nephrology No dysuria 06/21 Musculoskeletal No joint complaint 2015 Dermatologic No rash 06/21/2016 Neurologic No alteration of consciousness 06/21/2016 Psychiatric anxiety 06/21/2016 Psychiatric depression 06/21/2016 Endocrine No dry or coarse skin 2015 Constitutional No recent illness 2015 Constitutional No anorexia 12/19/2015 Constitutional No night sweats 2015 Constitutional No chills 12/19/2015 Constitutional No diaphoresis 12/19/2015 Constitutional No fatigue 12/19/2015 Constitutional No fever 12/19/2015 Constitutional No insomnia 12/19/2015 Constitutional No malaise 12/19/2015 Constitutional No weight loss 12/19/2015 Constitutional No weight gain 12/19/2015 Constitutional No obesity 12/19/2015 Ears/Nose/Throat/Neck No nasal allergies 12/19/2015 Ears/Nose/Throat/Neck No nasal discharge 12/19/2015 Ears/Nose/Throat/Neck No otalgia 2015 Ears/Nose/Throat/Neck No otitis media 09/2015 Ears/Nose/Throat/Neck No headache 2015 Eyes No vision change 12/19/2015 Cardiovascular No chest pain/pressure 09/2015 Cardiovascular No dyspnea 12/19/2015 Respiratory No cough 12/19/2015 Respiratory No cigarette smoking 2015 Respiratory No chest tightness 2015 Respiratory No chest congestion 2015 Respiratory No dyspnea on exertion 2015 Respiratory No dyspnea 12/19/2015 Gastrointestinal No constipation 2015 Gastrointestinal No diarrhea 12/19/2015 Gastrointestinal No abdominal pain 2015 Genitourinary/Nephrology No dysuria 12/18 Musculoskeletal No muscle weakness 2015 Musculoskeletal No joint complaint 2015 Musculoskeletal No myalgias 12/19/2015 Dermatologic No rash 12/19/2015 Dermatologic No sores 12/19/2015 Psychiatric anxiety 12/19/2015 Psychiatric depression 12/19/2015 Constitutional No recent illness 2014 Constitutional No chills 06/12/2015 Constitutional No fatigue 06/12/2015 Constitutional No fever 06/12/2015 Constitutional No insomnia 06/12/2015 Constitutional No malaise 06/12/2015 Eyes No blindness 06/12/2015 Eyes No vision change 06/12/2015 Ears/Nose/Throat/Neck No dental pain Ears/Nose/Throat/Neck No dizziness 2014 Ears/Nose/Throat/Neck No dysphagia 2014 Ears/Nose/Throat/Neck No headache 2014 Ears/Nose/Throat/Neck No hearing loss Ears/Nose/Throat/Neck No nasal allergies 06/12/2015 Ears/Nose/Throat/Neck No sore throat Ears/Nose/Throat/Neck No postnasal drip 06/12/2015 Ears/Nose/Throat/Neck No sinus congestion 06/12/2015 Cardiovascular No chest pain/pressure Cardiovascular No dyspnea 06/12/2015 Cardiovascular No edema 06/12/2015 Cardiovascular No exercise intolerance Cardiovascular No fatigue 06/12/2015 Cardiovascular No near-syncope/dizziness 06/12/2015 Respiratory No chest tightness 2014 Respiratory No cough 06/12/2015 Respiratory No dyspnea 06/12/2015 Respiratory No pedal edema 06/12/2015 Gastrointestinal No abdominal pain 2014 Gastrointestinal No constipation 2014 Gastrointestinal No diarrhea 06/12/2015 Gastrointestinal No gastroesophageal reflux 06/12/2015 Gastrointestinal No nausea 06/12/2015 Gastrointestinal No vomiting 06/12/2015 Genitourinary/Nephrology No dysuria 06/12 Genitourinary/Nephrology No nocturia Genitourinary/Nephrology No urinary incontinence 06/12/2015 Musculoskeletal No stiffness 06/12/2015 Musculoskeletal No swelling 06/12/2015 Musculoskeletal No muscle weakness 2014 Musculoskeletal No myalgias 06/12/2015 Dermatologic No rash 06/12/2015 Dermatologic No sores 06/12/2015 Dermatologic No scar 06/12/2015 Neurologic No dizziness 06/12/2015 Neurologic No headache 06/12/2015 Neurologic No neck pain 06/12/2015 Neurologic No syncope 06/12/2015 Psychiatric No anxiety 06/12/2015 Psychiatric No depression 06/12/2015 Constitutional No recent illness 2014 Constitutional No anorexia 01/21/2015 Constitutional No night sweats 2014 Constitutional No chills 01/21/2015 Constitutional No diaphoresis 01/21/2015 Constitutional No fatigue 01/21/2015 Constitutional No fever 01/21/2015 Constitutional No insomnia 01/21/2015 Constitutional No malaise 01/21/2015 Constitutional No weight loss 01/21/2015 Constitutional No weight gain 01/21/2015 Eyes No eye discharge 01/21/2015 Eyes No eye erythema 01/21/2015 Eyes eye tearing 01/21/2015 Ears/Nose/Throat/Neck No dizziness 2014 Ears/Nose/Throat/Neck No headache 2014 Ears/Nose/Throat/Neck nasal allergies 01/2015 Ears/Nose/Throat/Neck No nasal discharge 01/21/2015 Ears/Nose/Throat/Neck sinus congestion Ears/Nose/Throat/Neck No otalgia 2014 Ears/Nose/Throat/Neck sore throat 2014 Cardiovascular No chest pain/pressure 01/2015 Respiratory No productive sputum 2014 Respiratory cough 01/21/2015 Gastrointestinal No diarrhea 01/21/2015 Gastrointestinal No constipation 2014 Gastrointestinal No vomiting 01/21/2015 Gastrointestinal No nausea 01/21/2015 Genitourinary/Nephrology No dysuria 01/21 Musculoskeletal No joint complaint 2014 Dermatologic No rash 01/21/2015 Dermatologic No sores 01/21/2015 Neurologic No alteration of consciousness 01/21/2015 Physical Exam Exam Name System Name Item Name Status Result Effective Dates Notes Full Exam - General 1994 Constitutional general appearance Overall: in no acute distress 09/29/2017 None Full Exam - General 1994 Eyes pupils and irises Overall: pupils equal, round, reactive to light and accomodation 09/29/2017 None Full Exam - General 1994 Ears/Nose/Throat otoscopic exam Overall: external auditory canals clear 09/29/2017 None Full Exam - General 1994 Ears/Nose/Throat otoscopic exam Overall: tympanic membranes clear 09/29/2017 None Full Exam - General 1994 Ears/Nose/Throat oral cavity/pharynx/larynx Overall: oral mucosa clear 09/29/2017 None Full Exam - General 1994 Respiratory auscultation Overall: breath sounds clear bilaterally 09/29/2017 None Full Exam - General 1994 Respiratory respiratory effort/rhythm Overall: no retractions 09/29/2017 None Full Exam - General 1994 Respiratory respiratory effort/rhythm Overall: normal rate 09/29/2017 None Full Exam - General 1994 Cardiovascular auscultation of heart Overall: regular rate 09/29/2017 None Full Exam - General 1994 Cardiovascular auscultation of heart Overall: normal heart sounds 09/29/2017 None Full Exam - General 1994 Cardiovascular auscultation of heart Overall: no murmurs 09/29/2017 None Full Exam - General 1994 Abdomen abdominal exam Overall: no tenderness 09/29/2017 None Full Exam - General 1994 Abdomen abdominal exam Overall: normal bowel sounds 09/29/2017 None Full Exam - General 1994 Musculoskeletal gait and station Overall: normal gait 09/29/2017 None Full Exam - General 1994 Musculoskeletal gait and station Overall: normal station 09/29/2017 None Full Exam - General 1994 Integument inspection of skin Overall: few scattered moles, no gross abnormalities 09/29/2017 None Full Exam - General 1994 Neurologic mental status Overall: alert 09/29/2017 None Full Exam - General 1994 Neurologic mental status Overall: oriented 09/29/2017 None Full Exam - General 1994 Psychiatric orientation/consciousness Overall: oriented to person, place and time 09/29/2017 None Full Exam - General 1994 Psychiatric appearance Overall: well-groomed, good eye contact 09/29/2017 None Full Exam - General 1994 Constitutional general appearance Overall: in no acute distress 03/25/2017 None Full Exam - General 1994 Eyes pupils and irises Overall: pupils equal, round, reactive to light and accomodation 03/25/2017 None Full Exam - General 1994 Ears/Nose/Throat otoscopic exam Overall: external auditory canals clear 03/25/2017 None Full Exam - General 1994 Ears/Nose/Throat otoscopic exam Overall: tympanic membranes clear 03/25/2017 None Full Exam - General 1994 Ears/Nose/Throat oral cavity/pharynx/larynx Overall: oral mucosa clear 03/25/2017 None Full Exam - General 1994 Respiratory auscultation Overall: breath sounds clear bilaterally 03/25/2017 None Full Exam - General 1994 Respiratory respiratory effort/rhythm Overall: no retractions 03/25/2017 None Full Exam - General 1994 Respiratory respiratory effort/rhythm Overall: normal rate 03/25/2017 None Full Exam - General 1994 Cardiovascular auscultation of heart Overall: regular rate 03/25/2017 None Full Exam - General 1994 Cardiovascular auscultation of heart Overall: normal heart sounds 03/25/2017 None Full Exam - General 1994 Cardiovascular auscultation of heart Overall: no murmurs 03/25/2017 None Full Exam - General 1994 Neurologic mental status Overall: alert 03/25/2017 None Full Exam - General 1994 Neurologic mental status Overall: oriented 03/25/2017 None Full Exam - General 1994 Psychiatric orientation/consciousness Overall: oriented to person, place and time 03/25/2017 None Full Exam - General 1994 Psychiatric appearance Overall: well-groomed, good eye contact 03/25/2017 None Full Exam - General 1994 Abdomen abdominal exam Overall: no tenderness 03/25/2017 None Full Exam - General 1994 Abdomen abdominal exam Overall: normal bowel sounds 03/25/2017 None Full Exam - General 1994 Musculoskeletal gait and station Overall: normal gait 03/25/2017 None Full Exam - General 1994 Musculoskeletal gait and station Overall: normal station 03/25/2017 None Full Exam - General 1994 Integument inspection of skin Overall: few scattered moles, no gross abnormalities 03/25/2017 None Full Exam - ENT Constitutional general appearance Overall: well nourished 09/27/2016 None Full Exam - ENT Constitutional general appearance Overall: well developed 09/27/2016 None Full Exam - ENT Constitutional general appearance Overall: in no acute distress 09/27/2016 None Full Exam - ENT Ears/Nose/Throat otoscopic exam Overall: external auditory canals normal 09/27/2016 None Full Exam - ENT Ears/Nose/Throat otoscopic exam Overall: tympanic membranes normal 09/27/2016 None Full Exam - ENT Ears/Nose/Throat oropharynx Overall: oral mucosa clear 09/27/2016 None Full Exam - ENT Respiratory inspection Overall: no retractions 09/27/2016 None Full Exam - ENT Respiratory inspection Overall: normal rate 05/2017 None Full Exam - ENT Respiratory auscultation Overall: breath sounds clear bilaterally 09/27/2016 None Full Exam - ENT Cardiovascular auscultation of heart Overall: regular rate 09/27/2016 None Full Exam - ENT Cardiovascular auscultation of heart Overall: normal heart sounds 09/27/2016 None Full Exam - ENT Lymphatic palpation of lymph nodes Overall: anterior cervical chain benign 09/27/2016 None Full Exam - ENT Lymphatic palpation of lymph nodes Overall: posterior cervical chain benign 09/27/2016 None Full Exam - ENT Neurologic orientation Overall: oriented to person, place and time 09/27/2016 None Full Exam - ENT Face and Head palpation Left maxillary sinus: tender 09/27/2016 None Full Exam - ENT Face and Head palpation Right maxillary sinus: tender 09/27/2016 None Full Exam - General 1994 Constitutional general appearance Overall: in no acute distress 07/26/2016 None Full Exam - General 1994 Eyes pupils and irises Overall: pupils equal, round, reactive to light and accomodation 07/26/2016 None Full Exam - General 1994 Ears/Nose/Throat oral cavity/pharynx/larynx Overall: oral mucosa clear 07/26/2016 None Full Exam - General 1994 Ears/Nose/Throat otoscopic exam Overall: external auditory canals clear 07/26/2016 None Full Exam - General 1994 Ears/Nose/Throat otoscopic exam Overall: tympanic membranes clear 07/26/2016 None Full Exam - General 1994 Respiratory respiratory effort/rhythm Overall: no retractions 07/26/2016 None Full Exam - General 1994 Respiratory respiratory effort/rhythm Overall: normal rate 07/26/2016 None Full Exam - General 1994 Respiratory auscultation Overall: breath sounds clear bilaterally 07/26/2016 None Full Exam - General 1994 Cardiovascular auscultation of heart Overall: regular rate 07/26/2016 None Full Exam - General 1994 Cardiovascular auscultation of heart Overall: normal heart sounds 07/26/2016 None Full Exam - General 1994 Cardiovascular auscultation of heart Overall: no murmurs 07/26/2016 None Full Exam - General 1994 Neurologic mental status Overall: alert 07/26/2016 None Full Exam - General 1994 Neurologic mental status Overall: oriented 07/26/2016 None Full Exam - General 1994 Psychiatric orientation/consciousness Overall: oriented to person, place and time 07/26/2016 None Full Exam - General 1994 Psychiatric appearance Overall: well-groomed, good eye contact 07/26/2016 None Full Exam - General 1994 Constitutional general appearance Development: well developed 06/21/2016 None Full Exam - General 1994 Constitutional general appearance Development: appears stated age 1006/21/2016 None Full Exam - General 1994 Constitutional general appearance Hygiene/Attention to Grooming: good hygiene 06/21/2016 None Full Exam - General 1994 Eyes conjunctiva /eyelids Overall: conjunctiva clear 06/21/2016 None Full Exam - General 1994 Eyes conjunctiva /eyelids Overall: cornea clear 06/21/2016 None Full Exam - General 1994 Eyes conjunctiva /eyelids Overall: eyelids normal 06/21/2016 None Full Exam - General 1994 Eyes pupils and irises Overall: pupils equal, round, reactive to light and accomodation 06/21/2016 None Full Exam - General 1994 Ears/Nose/Throat otoscopic exam Overall: external auditory canals clear 06/21/2016 None Full Exam - General 1994 Ears/Nose/Throat otoscopic exam Overall: tympanic membranes clear 06/21/2016 None Full Exam - General 1994 Ears/Nose/Throat lips/teeth/gingiva Overall: benign lips 06/21/2016 None Full Exam - General 1994 Ears/Nose/Throat lips/teeth/gingiva Overall: normal dentition 06/21/2016 None Full Exam - General 1994 Ears/Nose/Throat oral cavity/pharynx/larynx Overall: oral mucosa clear 06/21/2016 None Full Exam - General 1994 Ears/Nose/Throat oral cavity/pharynx/larynx Overall: oropharyngeal mucosa clear 06/21/2016 None Full Exam - General 1994 Ears/Nose/Throat oral cavity/pharynx/larynx Overall: hypopharynx benign 06/21/2016 None Full Exam - General 1994 Ears/Nose/Throat oral cavity/pharynx/larynx Overall: no masses 06/21/2016 None Full Exam - General 1994 Neck thyroid Overall: normal size 11/2015 None Full Exam - General 1994 Neck thyroid Overall: normal consistency 06/21/2016 None Full Exam - General 1994 Neck thyroid Overall: nontender 2015 None Full Exam - General 1994 Neck thyroid Overall: no mass lesions 06/21/2016 None Full Exam - General 1994 Respiratory auscultation Overall: breath sounds clear bilaterally 06/21/2016 None Full Exam - General 1994 Respiratory respiratory effort/rhythm Overall: no retractions 06/21/2016 None Full Exam - General 1994 Respiratory respiratory effort/rhythm Overall: normal rate 06/21/2016 None Full Exam - General 1994 Cardiovascular extremities Overall: no clubbing 06/21/2016 None Full Exam - General 1994 Cardiovascular auscultation of heart Overall: regular rate 06/21/2016 None Full Exam - General 1994 Cardiovascular auscultation of heart Overall: normal heart sounds 06/21/2016 None Full Exam - General 1994 Musculoskeletal spine, ribs and pelvis Overall: spine benign 06/21/2016 None Full Exam - General 1994 Musculoskeletal spine, ribs and pelvis Overall: sacroiliac joint benign 06/21/2016 None Full Exam - General 1994 Musculoskeletal spine, ribs and pelvis Overall: good posture 06/21/2016 None Full Exam - General 1994 Musculoskeletal head and neck Overall: head atraumatic 06/21/2016 None Full Exam - General 1994 Musculoskeletal head and neck Overall: cervical spine benign 06/21/2016 None Full Exam - General 1994 Integument inspection of skin Overall: few scattered moles, no gross abnormalities 06/21/2016 None Full Exam - General 1994 Psychiatric orientation/consciousness Overall: oriented to person, place and time 06/21/2016 None Full Exam - General 1994 Psychiatric mood and affect Overall: normal mood and affect 06/21/2016 None Full Exam - General 1994 Abdomen abdominal exam Overall: normal bowel sounds 06/21/2016 None Full Exam - General 1994 Abdomen abdominal exam Overall: no tenderness 06/21/2016 None Full Exam - General 1994 Constitutional general appearance Development: well developed 12/19/2015 None Full Exam - General 1994 Constitutional general appearance Development: appears stated age 0412/19/2015 None Full Exam - General 1994 Constitutional general appearance Hygiene/Attention to Grooming: good hygiene 12/19/2015 None Full Exam - General 1994 Eyes conjunctiva /eyelids Overall: conjunctiva clear 12/19/2015 None Full Exam - General 1994 Eyes conjunctiva /eyelids Overall: cornea clear 12/19/2015 None Full Exam - General 1994 Eyes conjunctiva /eyelids Overall: eyelids normal 12/19/2015 None Full Exam - General 1994 Eyes pupils and irises Overall: pupils equal, round, reactive to light and accomodation 12/19/2015 None Full Exam - General 1994 Ears/Nose/Throat otoscopic exam Overall: external auditory canals clear 12/19/2015 None Full Exam - General 1994 Ears/Nose/Throat otoscopic exam Overall: tympanic membranes clear 12/19/2015 None Full Exam - General 1994 Ears/Nose/Throat lips/teeth/gingiva Overall: benign lips 12/19/2015 None Full Exam - General 1994 Ears/Nose/Throat lips/teeth/gingiva Overall: normal dentition 12/19/2015 None Full Exam - General 1994 Ears/Nose/Throat oral cavity/pharynx/larynx Overall: oral mucosa clear 12/19/2015 None Full Exam - General 1994 Ears/Nose/Throat oral cavity/pharynx/larynx Overall: oropharyngeal mucosa clear 12/19/2015 None Full Exam - General 1994 Ears/Nose/Throat oral cavity/pharynx/larynx Overall: hypopharynx benign 12/19/2015 None Full Exam - General 1994 Ears/Nose/Throat oral cavity/pharynx/larynx Overall: no masses 12/19/2015 None Full Exam - General 1994 Respiratory auscultation Overall: breath sounds clear bilaterally 12/19/2015 None Full Exam - General 1994 Respiratory respiratory effort/rhythm Overall: no retractions 12/19/2015 None Full Exam - General 1994 Respiratory respiratory effort/rhythm Overall: normal rate 12/19/2015 None Full Exam - General 1994 Cardiovascular extremities Overall: no clubbing 12/19/2015 None Full Exam - General 1994 Cardiovascular auscultation of heart Overall: regular rate 12/19/2015 None Full Exam - General 1994 Cardiovascular auscultation of heart Overall: normal heart sounds 12/19/2015 None Full Exam - General 1994 Musculoskeletal spine, ribs and pelvis Overall: spine benign 12/19/2015 None Full Exam - General 1994 Musculoskeletal spine, ribs and pelvis Overall: sacroiliac joint benign 12/19/2015 None Full Exam - General 1994 Musculoskeletal spine, ribs and pelvis Overall: good posture 12/19/2015 None Full Exam - General 1994 Musculoskeletal head and neck Overall: head atraumatic 12/19/2015 None Full Exam - General 1994 Musculoskeletal head and neck Overall: cervical spine benign 12/19/2015 None Full Exam - General 1994 Integument inspection of skin Overall: few scattered moles, no gross abnormalities 12/19/2015 None Full Exam - General 1994 Psychiatric orientation/consciousness Overall: oriented to person, place and time 12/19/2015 None Full Exam - General 1994 Psychiatric mood and affect Overall: normal mood and affect 12/19/2015 None Full Exam - General 1994 Neck thyroid Overall: nontender 2015 None Full Exam - General 1994 Neck thyroid Overall: normal size 09/2015 None Full Exam - General 1994 Neck thyroid Overall: no mass lesions 12/19/2015 None Full Exam - General 1994 Neck thyroid Overall: normal consistency 12/19/2015 None Full Exam - General 1994 Constitutional general appearance Development: well developed 06/12/2015 None Full Exam - General 1994 Constitutional general appearance Development: appears stated age 0906/12/2015 None Full Exam - General 1994 Constitutional general appearance Hygiene/Attention to Grooming: good hygiene 06/12/2015 None Full Exam - General 1994 Eyes conjunctiva /eyelids Overall: conjunctiva clear 06/12/2015 None Full Exam - General 1994 Eyes conjunctiva /eyelids Overall: cornea clear 06/12/2015 None Full Exam - General 1994 Eyes conjunctiva /eyelids Overall: eyelids normal 06/12/2015 None Full Exam - General 1994 Eyes pupils and irises Overall: pupils equal, round, reactive to light and accomodation 06/12/2015 None Full Exam - General 1994 Ears/Nose/Throat otoscopic exam Overall: external auditory canals clear 06/12/2015 None Full Exam - General 1994 Ears/Nose/Throat otoscopic exam Overall: tympanic membranes clear 06/12/2015 None Full Exam - General 1994 Ears/Nose/Throat lips/teeth/gingiva Overall: benign lips 06/12/2015 None Full Exam - General 1994 Ears/Nose/Throat lips/teeth/gingiva Overall: normal dentition 06/12/2015 None Full Exam - General 1994 Ears/Nose/Throat oral cavity/pharynx/larynx Overall: oral mucosa clear 06/12/2015 None Full Exam - General 1994 Ears/Nose/Throat oral cavity/pharynx/larynx Overall: oropharyngeal mucosa clear 06/12/2015 None Full Exam - General 1994 Ears/Nose/Throat oral cavity/pharynx/larynx Overall: hypopharynx benign 06/12/2015 None Full Exam - General 1994 Ears/Nose/Throat oral cavity/pharynx/larynx Overall: no masses 06/12/2015 None Full Exam - General 1994 Respiratory auscultation Overall: breath sounds clear bilaterally 06/12/2015 None Full Exam - General 1994 Respiratory respiratory effort/rhythm Overall: no retractions 06/12/2015 None Full Exam - General 1994 Respiratory respiratory effort/rhythm Overall: normal rate 06/12/2015 None Full Exam - General 1994 Cardiovascular extremities Overall: no clubbing 06/12/2015 None Full Exam - General 1994 Cardiovascular auscultation of heart Overall: regular rate 06/12/2015 None Full Exam - General 1994 Cardiovascular auscultation of heart Overall: normal heart sounds 06/12/2015 None Full Exam - General 1994 Abdomen abdominal exam Overall: no tenderness 06/12/2015 None Full Exam - General 1994 Abdomen abdominal exam Overall: normal bowel sounds 06/12/2015 None Full Exam - General 1994 Lymphatic neck nodes Overall: anterior cervical chain benign 06/12/2015 None Full Exam - General 1994 Lymphatic neck nodes Overall: posterior cervical chain benign 06/12/2015 None Full Exam - General 1994 Musculoskeletal spine, ribs and pelvis Overall: spine benign 06/12/2015 None Full Exam - General 1994 Musculoskeletal spine, ribs and pelvis Overall: sacroiliac joint benign 06/12/2015 None Full Exam - General 1994 Musculoskeletal spine, ribs and pelvis Overall: good posture 06/12/2015 None Full Exam - General 1994 Musculoskeletal head and neck Overall: head atraumatic 06/12/2015 None Full Exam - General 1994 Musculoskeletal head and neck Overall: cervical spine benign 06/12/2015 None Full Exam - General 1994 Integument inspection of skin Overall: few scattered moles, no gross abnormalities 06/12/2015 None Full Exam - General 1994 Neurologic deep tendon reflexes Overall: deep tendon reflexes intact 06/12/2015 None Full Exam - General 1994 Neurologic cranial nerves Overall: crainial nerves 2 - 12 grossly intact 06/12/2015 None Full Exam - General 1994 Psychiatric orientation/consciousness Overall: oriented to person, place and time 06/12/2015 None Full Exam - General 1994 Psychiatric mood and affect Overall: normal mood and affect 06/12/2015 None Full Exam - ENT Constitutional general appearance Overall: well nourished 01/21/2015 None Full Exam - ENT Constitutional general appearance Overall: well developed 01/21/2015 None Full Exam - ENT Constitutional general appearance Overall: in no acute distress 01/21/2015 None Full Exam - ENT Neurologic orientation Overall: oriented to person, place and time 01/21/2015 None Full Exam - ENT Integument inspection of skin Overall: no rash, lesions 01/21/2015 irritated lesion right ear on the lobule between the tragus and antitragus Full Exam - ENT Lymphatic palpation of lymph nodes Overall: anterior cervical chain benign 01/21/2015 None Full Exam - ENT Lymphatic palpation of lymph nodes Overall: posterior cervical chain benign 01/21/2015 None Full Exam - ENT Cardiovascular auscultation of heart Overall: regular rate 01/21/2015 None Full Exam - ENT Cardiovascular auscultation of heart Overall: normal heart sounds 01/21/2015 None Full Exam - ENT Respiratory auscultation Overall: breath sounds clear bilaterally 01/21/2015 None Full Exam - ENT Respiratory inspection Overall: normal rate 01/2015 None Full Exam - ENT Respiratory inspection Overall: no retractions 01/21/2015 None Full Exam - ENT Ears/Nose/Throat otoscopic exam Overall: external auditory canals normal 01/21/2015 None Full Exam - ENT Ears/Nose/Throat otoscopic exam Overall: tympanic membranes normal 01/21/2015 None Full Exam - ENT Ears/Nose/Throat oropharynx Overall: oral mucosa clear 01/21/2015 None Full Exam - ENT Face and Head palpation Overall: no sinus tenderness 01/21/2015 None Procedures Procedure Codes Date THER/PROPH/DIAG INJ SC/IM CPT-4: 66065 09/27/2016 TRIAMCINOLONE ACET INJ NOS CPT-4: J3301 09/27/2016 TRIAMCINOLONE ACET INJ NOS CPT-4: J3301 01/21/2015 Vital Signs Date Vital 09/29/2017 Blood Pressure 1: 132/84 Code : 8480-6 BMI: 34.2 Code : 82635-2 Heart Rate 1 : 85 bpm Height: 5'7" SpO2: 96% Weight: 218 lbs 8 oz 03/25/2017 Blood Pressure 1: 124/82 Code : 8480-6 BMI: 34.5 Code : 35848-0 Heart Rate 1 : 81 bpm Height: 5'7" SpO2: 96% Weight: 220 lbs 09/27/2016 Blood Pressure 1: 114/76 Code : 8480-6 BMI: 34.3 Code : 22779-8 Heart Rate 1 : 92 bpm Height: 5'7" SpO2: 95% Temperature: 36.8 (C) / 98.3 (F) Weight: 219 lbs 07/26/2016 Blood Pressure 1: 122/82 Code : 8480-6 BMI: 34.3 Code : 90180-3 Heart Rate 1 : 76 bpm Height: 5'7" SpO2: 96% Weight: 219 lbs 06/21/2016 Blood Pressure 1: 130/80 Code : 8480-6 BMI: 34.9 Code : 61390-2 Heart Rate 1 : 77 bpm Height: 5'7" SpO2: 97% Weight: 223 lbs 12/19/2015 Blood Pressure 1: 128/82 Code : 8480-6 BMI: 34.5 Code : 99845-5 Heart Rate 1 : 82 bpm Height: 5'7" SpO2: 97% Weight: 220 lbs 06/12/2015 Blood Pressure 1: 118/72 Code : 8480-6 BMI: 33.2 Code : 66008-1 Heart Rate 1 : 65 bpm Height: 5'7" SpO2: 98% Weight: 212 lbs 01/21/2015 Blood Pressure 1: 128/90 Code : 8480-6 BMI: 33.0 Code : 85489-8 Heart Rate 1 : 84 bpm Height: 5'7" SpO2: 94% Weight: 211 lbs Functional Status No Functional Status data History of Present Illness Symptom Name Status Result Effective Date Notes hyperlipidemia Onset of Symptom during adulthood 09/29/2017 None hyperlipidemia Severity mild 09/29/2017 None hyperlipidemia Frequency of Episodes unchanged 09/29/2017 None hyperlipidemia Significant Medications statin 09/29/2017 None hyperlipidemia Triggers no known associated factors 09/29/2017 None hyperlipidemia Alleviating Factors medication 09/29/2017 None hyperlipidemia Exacerbating Factors diet 09/29/2017 None hyperlipidemia Quality chronic 09/29/2017 None hyperlipidemia Onset and Resolution ongoing 09/29/2017 None hyperlipidemia Onset of Symptom during adulthood 03/25/2017 None hyperlipidemia Severity mild 03/25/2017 None hyperlipidemia Frequency of Episodes unchanged 03/25/2017 None hyperlipidemia Significant Medications statin 03/25/2017 None hyperlipidemia Triggers no known associated factors 03/25/2017 None hyperlipidemia Alleviating Factors medication 03/25/2017 None hyperlipidemia Exacerbating Factors diet 03/25/2017 None hyperlipidemia Quality chronic 03/25/2017 None hyperlipidemia Onset and Resolution ongoing 03/25/2017 None cough Location in the throat 09/27/2016 None cough Quality constant 09/27/2016 None cough Quality dry 05/2017 None cough Onset and Resolution sudden in onset 09/27/2016 None cough Onset of Symptom 1 weeks ago 09/27/2016 None cough Limitation on Activities does not limit activities 09/27/2016 None cough Frequency of Episodes increasing 09/27/2016 None cough Triggers ill contacts 09/27/2016 None cough Pertinent Findings Denies chest discomfort 09/27/2016 None cough Pertinent Findings Denies chills 09/27/2016 None cough Pertinent Findings Denies dyspnea 09/27/2016 None depression Quality intermittent 07/26/2016 None depression Onset and Resolution ongoing 07/26/2016 None depression Pertinent Findings Denies depressed mood 07/26/2016 None depression Pertinent Findings Denies helplessness 07/26/2016 None depression Pertinent Findings Denies hopelessness 07/26/2016 None depression Pertinent Findings Denies irritability 07/26/2016 None hyperlipidemia Alleviating Factors medication 07/26/2016 None hyperlipidemia Exacerbating Factors diet 07/26/2016 None hyperlipidemia Onset and Resolution ongoing 07/26/2016 None hyperlipidemia Onset of Symptom during adulthood 07/26/2016 None hyperlipidemia Severity mild 07/26/2016 None hyperlipidemia Frequency of Episodes unchanged 07/26/2016 None hyperlipidemia Significant Medications statin 07/26/2016 None hyperlipidemia Triggers no known associated factors 07/26/2016 None hyperlipidemia Quality chronic 07/26/2016 None depression Quality intermittent 06/21/2016 None depression Onset and Resolution ongoing 06/21/2016 None depression Pertinent Findings Denies depressed mood 06/21/2016 None depression Pertinent Findings Denies helplessness 06/21/2016 None depression Pertinent Findings Denies hopelessness 06/21/2016 None depression Pertinent Findings Denies irritability 06/21/2016 None hyperlipidemia Alleviating Factors medication 06/21/2016 None hyperlipidemia Exacerbating Factors diet 06/21/2016 None hyperlipidemia Onset and Resolution ongoing 06/21/2016 None depression Quality intermittent 12/19/2015 None depression Onset and Resolution ongoing 12/19/2015 None depression Pertinent Findings Denies depressed mood 12/19/2015 None depression Pertinent Findings Denies helplessness 12/19/2015 None depression Pertinent Findings Denies hopelessness 12/19/2015 None depression Pertinent Findings Denies irritability 12/19/2015 None hyperlipidemia Onset and Resolution ongoing 12/19/2015 None hyperlipidemia Alleviating Factors medication 12/19/2015 None hyperlipidemia Exacerbating Factors diet 12/19/2015 None depression Quality intermittent 06/12/2015 None depression Onset and Resolution ongoing 06/12/2015 None hyperlipidemia Onset and Resolution ongoing 06/12/2015 None depression Pertinent Findings Denies depressed mood 06/12/2015 None depression Pertinent Findings Denies helplessness 06/12/2015 None depression Pertinent Findings Denies hopelessness 06/12/2015 None depression Pertinent Findings Denies irritability 06/12/2015 None hyperlipidemia Alleviating Factors medication 06/12/2015 None hyperlipidemia Exacerbating Factors diet 06/12/2015 None cough Location in the throat 01/21/2015 None cough Quality productive 01/21/2015 None cough Onset of Symptom 1 weeks ago 01/21/2015 None cough Frequency of Episodes daily 01/21/2015 None cough Pertinent Findings Denies chest discomfort 01/21/2015 None cough Pertinent Findings Denies dyspnea 01/21/2015 None cough Pertinent Findings Denies fever 01/21/2015 None sore throat Location diffusely 01/21/2015 None sore throat Quality intermittent 01/21/2015 None sore throat Onset of Symptom _ days ago 01/21/2015 None sore throat Timing of Episodes in the morning 01/21/2015 None sore throat Pertinent Findings cough 01/21/2015 None sore throat Pertinent Findings Denies fever 01/21/2015 None sore throat Pertinent Findings hoarseness 01/21/2015 None sore throat Limitation on Activities does not limit oral intake 01/21/2015 None sore throat Frequency of Episodes increasing 01/21/2015 None sore throat Triggers allergens 01/21/2015 None cough Onset and Resolution ongoing 01/21/2015 None Advance Directives No Advance Directive data Encounters Encounter Performer Location Codes Date ([id number]) PREV VISIT EST AGE 40-64 Diagnosis: Encounter for general adult medical examination without abnormal findings[ICD10: Z00.00] Makayla Evangelista MD, [facility] CPT-4: 23645 09/29/2017 ([id number]) [id number] EST. PATIENT, LEVEL IV Diagnosis: Essential (primary) hypertension[ICD10: I10] Diagnosis: Mixed hyperlipidemia[ICD10: E78.2] Diagnosis: Hypothyroidism, unspecified[ICD10: E03.9] Betty Evangelista MD, [facility] CPT-4: 70643 03/25/2017 ([id number]) 51072 EST. PATIENT, LEVEL III Diagnosis: Cough[ICD10: R05] Diagnosis: Acute recurrent maxillary sinusitis[ICD10: J01.01] Betty Evangelista MD, [facility] CPT-4: 68623 09/27/2016 ([id number]) 72870 EST. PATIENT, LEVEL III Diagnosis: Essential (primary) hypertension[ICD10: I10] Diagnosis: Other obesity due to excess calories[ICD10: E66.09] Diagnosis: Unspecified ovarian cyst, right side[ICD10: N83.201] Diagnosis: Encounter for screening mammogram for malignant neoplasm of breast[ ICD10: Z12.31] Betty Evangelista MD, [facility] CPT-4: 37746 07/26/2016 ([id number]) 22730 EST. PATIENT, LEVEL IV Diagnosis: Essential (primary) hypertension[ICD10: I10] Diagnosis: Mixed hyperlipidemia[ICD10: E78.2] Diagnosis: Hypothyroidism, unspecified[ICD10: E03.9] Diagnosis: Other obesity due to excess calories[ICD10: E66.09] Betty Evangelista MD, [facility] CPT-4: 28674 06/21/2016 ([id number]) 66638 EST. PATIENT, LEVEL IV Diagnosis: Essential (primary) hypertension[ICD10: I10] Diagnosis: Mixed hyperlipidemia[ICD10: E78.2] Diagnosis: Hypothyroidism, unspecified[ICD10: E03.9] Betty Evangelista MD, [facility] CPT-4: 42864 12/19/2015 ([id number]) 53392 EST. PATIENT, LEVEL IV Diagnosis: HYPOTHYROIDISM[ICD9: 244.9] Diagnosis: HYPERLIPIDEMIA[ICD9: 272.4] Diagnosis: ESSENTIAL HYPERTENSION[ICD9: 401.9] [facility] CPT-4: 74644 06/12/2015 ([id number]) OFFICE/OUTPATIENT VISIT NEW Diagnosis: ALLERGIC RHINITIS[ICD9: 477.9] Diagnosis: ESSENTIAL HYPERTENSION[ICD9: 401.9] [facility] CPT-4: 46017 01/21/2015 Plan of Care Planned Activity Notes Codes Status Date Appointment: [facility] (15 min) Moderate 09/29/2017 Patient Education: Patient Medication Summary Completed 09/29/2017 Appointment: Betty Suárez WPtel: [phone] [place] (15 min) Moderate 03/25/2017 Patient Education: Patient Medication Summary Completed 03/25/2017 Patient Education: Obesity Completed 03/25/2017 Patient Education: Patient Medication Summary Completed 03/25/2017 Appointment: Betty Suárez WPtel: [phone] (30 min) Complex 09/27/2016 Patient Education: Patient Medication Summary Completed 09/27/2016 Patient Education: Obesity Completed 09/27/2016 Appointment: Betty Suárez WPtel: [phone] (30 min) Complex 07/26/2016 Patient Education: Patient Medication Summary Completed 07/26/2016 Patient Education: Obesity Completed 07/26/2016 Appointment: [facility] Suárez [phone] [place] (30 min) Complex 06/21/2016 Patient Education: Patient Medication Summary Completed 06/21/2016 Patient Education: Obesity Completed 06/21/2016 Care Plan: Tsh Pending 06/21/2016 Care Plan: Lipid Pending 06/21/2016 Care Plan: Free T4 Pending 06/21/2016 Care Plan: Comp Metabolic Pending 06/21/2016 Care Plan: Cbc With Differential Pending 06/21/2016 Care Plan: BMI Above normal followup SELF-MGMT EDUC & TRAIN 1 PT Pending 2015 Appointment: [facility] Su[facility]ze [facility] [phone] [phone] [place] (15 min) Moderate 01/01/2016 Patient Education: Patient Medication Summary Completed 12/19/2015 Patient Education: Obesity Completed 12/19/2015 Patient Education: Hypertension Completed 12/19/2015 Appointment: [facility] Evangelista [facility] [place] (15 min) Moderate 12/09/2015 Appointment: [facility] [phone] [phone] (15 min) Moderate 06/12/2015 Patient Education: Patient Medication Summary Completed 06/12/2015 Patient Education: Hypertension Completed 06/12/2015 Patient Education: Patient Medication Summary Completed 01/21/2015 Patient Education: Hypertension Completed 01/21/2015 Instructions No Instructions
--- OUTSIDE RECORDS SUMMARY | 2018-03-10 16:32 | XMS REPORT | CCD ---
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 [id number] 2017 Unknown Family history Mother Diagnosis Age At Onset Heart disease Unknown Father Diagnosis Age At Onset Stroke Unknown Heart Attack Unknown Sister Diagnosis Age At Onset Diabetes mellitus Type 2 Unknown Social History Social History Element Codes Description Effective Dates Employment Unknown 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 - 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 working for [employer] Started May 2017 09/29/2017 Marital status Unknown 01/21/2015 Number of children Unknown 1 01/21/[address]: 052205345 Has never smoked or chewed tobacco 01/21/2015 [...] Start Date Stop Date Status Fill Instructions atenolol 100 mg tablet RxNorm: 559438 1 Tablet(s) PO daily 04/201810/21/2018 Active levothyroxine 112 mcg tablet RxNorm: 462750 1 Tablet(s) PO daily 10/27/2017 10/21/2018 Active liothyronine 5 mcg tablet RxNorm: 081861 1 Tablet(s) PO daily 10/27/2017 10/21/2018 Active Xanax 0.5 mg tablet RxNorm: 802360 Tablet(s) TAKE ONE TABLET BY MOUTH EVERY 6 HOURS NEEDED FOR ANXIETY 10/27/201702/2018 Active simvastatin 40 mg tablet RxNorm: 562734 1 Tablet(s) PO daily 10/21/2018 Active famotidine 20 mg tablet RxNorm: 994920 Tablet(s) TAKE 1 BY MOUTH DAILY 10/27/2017 10/21/2018 Active venlafaxine ER 150 mg capsule,extended release 24 hr RxNorm: 982104 1 Capsule(s) PO daily 10/27/2017 10/21/2018 Active Augmentin 875 mg-125 mg tablet RxNorm: 477156 1 Tablet(s) PO BID 10/26/2017 11/04/2017 Active Xanax 0.5 mg tablet RxNorm: 179271 Tablet(s) TAKE ONE TABLET BY MOUTH EVERY 6 HOURS NEEDED FOR ANXIETY 10/13/201703/2018 Inactive betamethasone valerate 0.1 % topical ointment RxNorm: 171466 1 Application TOP BID until lesions are healed, then as needed 09/29/2017 10/28/2017 Active atenolol 100 mg tablet RxNorm: 348409 1 Tablet(s) PO daily TAKE 1 BY MOUTH DAILY 08/19/2017 10/26/2017 Inactive D/C metoprolol 100mg atenolol 100 mg tablet RxNorm: 480299 1 Tablet(s) PO daily TAKE 1 BY MOUTH DAILY 08/09/2017 08/09/2017 Inactive metoprolol succinate ER 100 mg tablet,extended release 24 hr RxNorm: 975996 1 Tablet(s) PO daily 08/09/2017 08/18/2017 Inactive metoprolol succinate ER 100 mg tablet,extended release 24 hr RxNorm: 512808 1 Tablet(s) PO daily 08/09/2017 08/08/2017 Inactive atenolol 100 mg tablet RxNorm: 829517 1 Tablet(s) PO daily TAKE 1 BY MOUTH DAILY 07/14/2017 08/08/2017 Inactive Xanax 0.5 mg tablet RxNorm: 871030 TAKE ONE TABLET BY MOUTH EVERY 6 HOURS NEEDED FOR ANXIETY 05/31/2017 08/27/2017 Inactive Generic For:*XANAX 0.5 MG TABLET 05/30/2017 12:57:26 PM famotidine 20 mg tablet RxNorm: 751432 TAKE 1 BY MOUTH DAILY 10/26/2017 Inactive simvastatin 40 mg tablet RxNorm: 196636 TAKE 1 BY MOUTH DAILY 05/02/2017 10/26/2017 Inactive liothyronine 5 mcg tablet RxNorm: 668420 TAKE 1 BY MOUTH DAILY 02/21/2017 08/19/2017 Inactive venlafaxine ER 150 mg capsule,extended release 24 hr RxNorm: 649674 TAKE 1 BY MOUTH DAILY 02/21/2017 08/19/2017 Inactive atenolol 100 mg tablet RxNorm: 537475 TAKE 1 BY MOUTH DAILY 01/201707/13/2017 Inactive levothyroxine 112 mcg tablet RxNorm: 244732 TAKE 1 BY MOUTH DAILY 02/21/2017 08/19/2017 Inactive Xanax 0.5 mg tablet RxNorm: 810001 Tablet(s) TAKE ONE TABLET BY MOUTH EVERY 6 HOURS NEEDED FOR ANXIETY 02/08/201708/2017 Inactive Generic For:*XANAX 0.5 MG TABLET 01/03/2017 9:54:27 AM Topicort 0.25 % topical cream RxNorm: 03834 1 Application TOP UD 02/07/2017 02/16/2017 Inactive Xanax 0.5 mg tablet RxNorm: 645566 TAKE ONE TABLET BY MOUTH EVERY 6 HOURS NEEDED FOR ANXIETY 01/03/2017 02/07/2017 Inactive Generic For:*XANAX 0.5 MG TABLET 01/03/2017 9:54:27 AM Tamiflu 75 mg capsule RxNorm: 551623 1 Capsule(s) PO daily 11/2411/23/2016 Inactive Tamiflu 75 mg capsule RxNorm: 956733 1 Capsule(s) PO daily 11/2412/03/2016 Inactive Flonase Allergy Relief 50 mcg/actuation nasal spray, suspension RxNorm: 9020354 [place] 2 [place] NASAL daily 11/15/2016 03/14/2017 Inactive [SAVINGS FOR NON- COVERED DRUGS -- BIN:[id number], PCN: ASPROD1, Group: XXXXX, ID# XXXXXXX, Questions : . THIS IS NOT INSURANCE.] levothyroxine 112 mcg tablet RxNorm: 160392 TAKE 1 BY MOUTH DAILY 10/27/2016 02/20/2017 Inactive Diflucan 150 mg tablet RxNorm: 724334 1 Tablet(s) PO daily 10/10/2016 Inactive Diflucan 150 mg tablet RxNorm: 210914 1 Tablet(s) PO daily 10/17/2016 Inactive Augmentin 500 mg-125 mg tablet RxNorm: 437418 1 Tablet(s) PO TID 09/27/2016 10/03/2016 Inactive Kenalog 40 mg/mL suspension for injection RxNorm: 4653625 Milliliter(s) Inj 09/27/2016 09/27/2016 Inactive Xanax 0.5 mg tablet RxNorm: 768778 Tablet(s) TAKE ONE TABLET BY MOUTH EVERY 6 HOURS NEEDED FOR ANXIETY 09/03/2016 Inactive Contrave 8 mg-90 mg tablet,extended release RxNorm: 5655773 2 Tablet(s) PO BID 06/21/2016 03/24/2017 Inactive may give 90 day supply if covered by insurance-pt bringing copay card Topicort 0.25 % topical cream RxNorm: 06064 1 Application TOP UD 06/21/2016 06/30/2016 Inactive Xanax 0.5 mg tablet RxNorm: 257054 Tablet(s) TAKE ONE TABLET BY MOUTH EVERY 6 HOURS NEEDED FOR ANXIETY 05/06/2016 Inactive Generic For:*XANAX 0.5 MG TABLET N O T I C E PRESCRIPTION PREVIOUSLY AUTHORIZED BY DOCTOR:TITA SAMSON 04/14/2015 10:10:53 AM Xanax 0.5 mg tablet RxNorm: 139099 Tablet(s) TAKE ONE TABLET BY MOUTH EVERY 6 HOURS NEEDED FOR ANXIETY 05/04/2016 Inactive Generic For:*XANAX 0.5 MG TABLET N O T I C E PRESCRIPTION PREVIOUSLY AUTHORIZED BY DOCTOR:TITA SAMSON 04/14/2015 10:10:53 AM liothyronine 5 mcg tablet RxNorm: 342085 1 Tablet(s) PO daily 04/16/2016 02/20/2017 Inactive famotidine 20 mg tablet RxNorm: 218978 1 Tablet(s) PO daily 04/10/2017 Inactive atenolol 100 mg tablet RxNorm: 302195 1 Tablet(s) PO daily 02/20/2017 Inactive simvastatin 40 mg tablet RxNorm: 167626 1 Tablet(s) PO daily 04/10/2017 Inactive levothyroxine 112 mcg tablet RxNorm: 339594 1 Tablet(s) PO daily 04/16/2016 10/12/2016 Inactive venlafaxine ER 150 mg capsule,extended release 24 hr RxNorm: 966479 1 Capsule(s) PO daily 04/16/2016 02/20/2017 Inactive Flonase Allergy Relief 50 mcg/actuation nasal spray, suspension RxNorm: 5741522 [place] 2 [place] NASAL daily 11/14/2015 03/12/2016 Inactive [SAVINGS FOR NON- COVERED DRUGS -- BIN:[id number], PCN: ASPROD1, Group: XXXXX, ID# XXXXXXX, Questions : . THIS IS NOT INSURANCE.] Zithromax Z-Jean 250 mg tablet RxNorm: 374660 1 Tablet(s) PO 04/15/2016 Inactive zpack x 1 Xanax 0.5 mg tablet RxNorm: 937544 Tablet(s) TAKE ONE TABLET BY MOUTH EVERY 6 HOURS NEEDED FOR ANXIETY 10/23/201510/2015 Inactive Generic For:*XANAX 0.5 MG TABLET N O T I C E PRESCRIPTION PREVIOUSLY AUTHORIZED BY DOCTOR:TITA SAMSON 04/14/2015 10:10:53 AM Xanax 0.5 mg tablet RxNorm: 236330 Tablet(s) TAKE ONE TABLET BY MOUTH EVERY 6 HOURS NEEDED FOR ANXIETY 06/19/2015 Inactive Generic For:*XANAX 0.5 MG TABLET N O T I C E PRESCRIPTION PREVIOUSLY AUTHORIZED BY DOCTOR:TITA SAMSON 04/14/2015 10:10:53 AM Xanax 0.5 mg tablet RxNorm: 748197 TAKE ONE TABLET BY MOUTH EVERY 6 HOURS NEEDED FOR ANXIETY 04/15/2015 05/13/2015 Inactive Generic For:*XANAX 0.5 MG TABLET N O T I C E PRESCRIPTION PREVIOUSLY AUTHORIZED BY DOCTOR:TITA SAMSON 04/14/2015 10:10:53 AM Levaquin 500 mg tablet RxNorm: 375812 1 Tablet(s) PO daily 03/16/2015 Inactive Levaquin 500 mg tablet RxNorm: 409610 1 Tablet(s) PO daily 03/09/2015 Inactive amoxicillin 500 mg capsule RxNorm: 048843 1 Capsule(s) PO TID 02/21/2015 03/02/2015 Inactive instructed to take probiotic while on abt amoxicillin 500 mg capsule RxNorm: 970981 1 Capsule(s) PO TID 02/21/2015 02/20/2015 Inactive instructed to take probiotic while on abt Flonase Allergy Relief 50 mcg/actuation nasal spray, suspension RxNorm: 2 [place] NASAL daily 02/20/2015 06/19/2015 Inactive [SAVINGS FOR NON-COVERED DRUGS -- BIN:775656, PCN: ASPROD1, Group: XXXXX, ID# XXXXXXX, Questions: [phone]. THIS IS NOT INSURANCE.] Xanax 0.5 mg tablet RxNorm: 415737 1 Tablet(s) PO Q6 201404/15/2015 Inactive atenolol 100 mg tablet RxNorm: 202537 1 Tablet(s) PO daily 10/201404/15/2016 Inactive famotidine 20 mg tablet RxNorm: 394416 1 Tablet(s) PO daily 10/201404/15/2016 Inactive levothyroxine 112 mcg tablet RxNorm: 201553 1 Tablet(s) PO daily 02/18/2015 04/15/2016 Inactive famotidine 20 mg tablet RxNorm: 057887 1 Tablet(s) PO daily 10/201402/17/2015 Inactive simvastatin 40 mg tablet RxNorm: 124680 1 Tablet(s) PO daily 04/15/2016 Inactive venlafaxine ER 150 mg capsule,extended release 24 hr RxNorm: 512048 1 Capsule(s) PO daily 02/18/2015 04/15/2016 Inactive liothyronine 5 mcg tablet RxNorm: 226869 1 Tablet(s) PO daily 02/18/2015 04/15/2016 Inactive Flonase Allergy Relief 50 mcg/actuation nasal spray, suspension RxNorm: 2 [place] NASAL daily 01/21/2015 02/19/2015 Inactive [SAVINGS FOR NON-COVERED DRUGS -- BIN:[id number], PCN: ASPROD1, Group: XXXXX, ID# [id number], Questions: [phone]. THIS IS NOT INSURANCE.] triamcinolone acetonide 40 mg/mL suspension for injection RxNorm: 5161574 1 Milliliter(s) Inj 01/21/2015 01/21/2015 Inactive [SAVINGS FOR NON-COVERED DRUGS -- BIN:041918, PCN: ASPROD1, Group: XXXXX, ID# XXXXXXX, Questions: [phone]. THIS IS NOT INSURANCE.] atenolol 100 mg tablet RxNorm: 381284 1 Tablet(s) PO daily No Start Date 02/17/2015 Inactive liothyronine 5 mcg tablet RxNorm: 171676 1 Tablet(s) PO daily No Start Date 02/17/2015 Inactive Xanax 0.5 mg tablet RxNorm: 621388 1 Tablet(s) PO Q6 No Start Date 02/17/2015 Inactive Zithromax Z-Jean 250 mg tablet RxNorm: 555129 1 Tablet(s) PO No Start Date 11/13/2015 Inactive zpack x 1 simvastatin 40 mg tablet RxNorm: 282145 1 Tablet(s) PO daily No Start Date 02/17/2015 Inactive venlafaxine ER 150 mg capsule,extended release 24 hr RxNorm: 973057 1 Capsule(s) PO daily No Start Date 02/17/2015 Inactive levothyroxine 112 mcg capsule RxNorm: 364866 1 Capsule(s) PO daily No Start Date 02/17/2015 Inactive Medication Administered Medication Codes Instructions Start Date Status Kenalog 40 mg/mL suspension for injection RxNorm: 0344563 Milliliter 09/27/2016 No longer Active triamcinolone acetonide 40 mg/mL suspension for injection RxNorm: 5962090 1Milliliter 01/21/2015 No longer Active Immunizations Vaccine [...] Observation Code Item Item Code Result Date Lipid Ord30 CHOL 177 mg/dL 09/29/2017 Lipid Ord30 HDL 49.0 mg/dl 09/29/2017 Lipid Ord30 TRIG 150 mg/dL 09/29/2017 Lipid Ord30 LDL 98 mg/dL 09/29/2017 Lipid Ord30 C/HDL 3.6 Ratio 09/29/2017 Cbc With Differential Ord2 WBC 5.74 [...] 29.1 pg 09/29/2017 Cbc With Differential Ord2 [place]yer% 9.4 % 09/29/2017 Cbc With Differential Ord2 [...] 1.19 K/ul 09/29/2017 Cbc With Differential Ord2 [place]yer ABS# 0.5 K/ul 09/29/2017 Cbc With Differential Ord2 Eos ABS# 0.1 K/ul 09/29/2017 Cbc With Differential Ord2 Baso ABS# 0.0 K/ul 09/29/2017 Free T4 Ydr421 FREE T4 1.20 ng/dL 09/29/2017 Comp Metabolic Vco668 NA 141 mEq/L 09/29/2017 Comp Metabolic Uhn902 K 4.3 mEq/L 09/29/2017 Comp Metabolic Tvz240 CL 106 mEq/L 09/29/2017 Comp Metabolic Wiu709 CO2 28.0 mEq/L 09/29/2017 Comp Metabolic Rqv346 ANION GAP 11 09/29/2017 Comp Metabolic Xln016 GLUCOSE 105 mg/dL 09/29/2017 Comp Metabolic Gqk165 Creat 0.8 mg/dL 09/29/2017 Comp Metabolic Kou614 eGFR 73 ml/min/1.73m2 09/29/2017 Comp Metabolic Xmc271 BUN 15 mg/dL 09/29/2017 Comp Metabolic Oos680 B/C Ratio 17.9 Ratio 09/29/2017 Comp Metabolic Yum319 CALCIUM 9.7 mg/dL 09/29/2017 Comp Metabolic Tuu747 ALK PHOS 103 U/L 09/29/2017 Comp Metabolic Pfn291 AST(SGOT) 17 U/L 09/29/2017 Comp Metabolic Bjf734 ALT(SGPT) 22 U/L 09/29/2017 Comp Metabolic Rlo309 BILI T 0.6 mg/dL 09/29/2017 Comp Metabolic Jah107 ALBUMIN 4.0 g/dL 09/29/2017 Comp Metabolic Xxl264 TPRO 7.0 g/dL 09/29/2017 Comp Metabolic Ynw675 GLOB 3.0 g/dL 09/29/2017 Comp Metabolic Ztg270 A/G Ratio 1.3 Ratio 09/29/2017 Comp Metabolic Oau784 Osmo 282 mOsmo 09/29/2017 Tsh Ord6 hTSH II 0.10 uIU/mL [...] 30.0 pg 03/25/2017 Cbc With Differential Ord2 [place]% 9.5 % 03/25/2017 Cbc With Differential Ord2 [...] 1.64 K/ul 03/25/2017 Cbc With Differential Ord2 [place] ABS# 0.5 K/ul 03/25/2017 Cbc With Differential Ord2 Eos ABS# 0.1 K/ul 03/25/2017 Cbc With Differential Ord2 Baso ABS# 0.0 K/ul 03/25/2017 Lipid Ord30 CHOL 232 mg/dL 03/25/2017 Lipid Ord30 HDL 45.0 mg/dl 03/25/2017 Lipid Ord30 TRIG 244 mg/dL 03/25/2017 Lipid Ord30 LDL 138 mg/dL 03/25/2017 Lipid Ord30 C/HDL 5.2 Ratio 03/25/2017 Tsh Ord6 hTSH II 0.08 uIU/mL 03/25/2017 Comp Metabolic Brg643 NA 140 mEq/L 03/25/2017 Comp Metabolic Ugk148 K 4.1 mEq/L 03/25/2017 Comp Metabolic Aas090 CL 105 mEq/L 03/25/2017 Comp Metabolic Ygj086 CO2 26.0 mEq/L 03/25/2017 Comp Metabolic Yxr821 ANION GAP 13 03/25/2017 Comp Metabolic Cks402 GLUCOSE 127 mg/dL 03/25/2017 Comp Metabolic Ixw082 Creat 0.9 mg/dL 03/25/2017 Comp Metabolic Gzg297 eGFR 71 ml/min/1.73m2 03/25/2017 Comp Metabolic Qnf163 BUN 13 mg/dL 03/25/2017 Comp Metabolic Ofr227 B/C Ratio 15.1 Ratio 03/25/2017 Comp Metabolic Neo755 CALCIUM 9.4 mg/dL 03/25/2017 Comp Metabolic Fhi770 ALK PHOS 112 U/L 03/25/2017 Comp Metabolic Wjl372 AST(SGOT) 21 U/L 03/25/2017 Comp Metabolic Ydx918 ALT(SGPT) 26 U/L 03/25/2017 Comp Metabolic Isl756 BILI T 0.6 mg/dL 03/25/2017 Comp Metabolic Mdk930 ALBUMIN 4.0 g/dL 03/25/2017 Comp Metabolic Zgb963 TPRO 6.6 g/dL 03/25/2017 Comp Metabolic Yrs123 GLOB 2.6 g/dL 03/25/2017 Comp Metabolic Jfo270 A/G Ratio 1.5 Ratio 03/25/2017 Comp Metabolic Ecm753 Osmo 281 mOsmo 03/25/2017 Free T4 Tfm966 FREE T4 1.02 ng/dL 03/25/2017 %Hba1C Srl292 % HbA1c 33246-4 5.7 % 03/25/2017 %Hba1C Bzc546 Gluc Ave 117 mg/dL 03/25/2017 Comp Metabolic Wvg168 NA 139 mEq/L 06/21/2016 Comp Metabolic Ygp802 K 4.2 mEq/L 06/21/2016 Comp Metabolic Ipe865 CL 104 mEq/L 06/21/2016 Comp Metabolic Dnf251 CO2 28.0 mEq/L 06/21/2016 Comp Metabolic Dod712 ANION GAP 11 06/21/2016 Comp Metabolic Rex265 GLUCOSE 112 mg/dL 06/21/2016 Comp Metabolic Npa288 Creat 0.9 mg/dL 06/21/2016 Comp Metabolic Ufe034 eGFR 72 ml/min/1.73m2 06/21/2016 Comp Metabolic Xim133 BUN 14 mg/dL 06/21/2016 Comp Metabolic Mgg646 B/C Ratio 16.5 Ratio 06/21/2016 Comp Metabolic Nws809 CALCIUM 9.2 mg/dL 06/21/2016 Comp Metabolic Yus860 ALK PHOS 124 U/L 06/21/2016 Comp Metabolic Yli142 AST(SGOT) 17 U/L 06/21/2016 Comp Metabolic Vep328 ALT(SGPT) 20 U/L 06/21/2016 Comp Metabolic Bck829 BILI T 0.5 mg/dL 06/21/2016 Comp Metabolic Lkl424 ALBUMIN 3.9 g/dL 06/21/2016 Comp Metabolic Iee300 TPRO 6.7 g/dL 06/21/2016 Comp Metabolic Foy268 GLOB 2.8 g/dL 06/21/2016 Comp Metabolic Tqn948 A/G Ratio 1.4 Ratio 06/21/2016 Comp Metabolic Skf592 Osmo 279 mOsmo 06/21/2016 Free T4 Gnm397 FREE T4 0.86 ng/dL 06/21/2016 Tsh Ord6 hTSH II 0.21 uIU/mL 06/21/2016 Cbc With Differential Ord2 WBC 4.67 [...] 29.2 pg 06/21/2016 Cbc With Differential Ord2 [place]% 10.5 % 06/21/2016 Cbc With Differential Ord2 [...] 1.42 K/ul 06/21/2016 Cbc With Differential Ord2 [place] ABS# 0.5 K/ul 06/21/2016 Cbc With Differential Ord2 Eos ABS# 0.1 K/ul 06/21/2016 Cbc With Differential Ord2 Baso ABS# 0.0 K/ul 06/21/2016 Lipid Ord30 CHOL 209 mg/dL 06/21/2016 Lipid Ord30 HDL 48.0 mg/dl 06/21/2016 Lipid Ord30 TRIG 199 mg/dL 06/21/2016 Lipid Ord30 LDL 121 mg/dL 06/21/2016 Lipid Ord30 C/HDL 4.4 Ratio 06/21/2016 Free T4 Jqk939 FREE T4 1.00 ng/dL 12/23/2015 Lipid Ord30 CHOL 194 mg/dL 12/23/2015 Lipid Ord30 HDL 48.0 mg/dl 12/23/2015 Lipid Ord30 TRIG 240 mg/dL 12/23/2015 Lipid Ord30 LDL 98 mg/dL 12/23/2015 Lipid Ord30 C/HDL 4.0 Ratio 12/23/2015 Comp Metabolic Esi438 NA 137 mEq/L 12/23/2015 Comp Metabolic Hcq959 K 4.1 mEq/L 12/23/2015 Comp Metabolic Wrs322 CL 102 mEq/L 12/23/2015 Comp Metabolic Mxd735 CO2 26.0 mEq/L 12/23/2015 Comp Metabolic Hyl786 ANION GAP 13 12/23/2015 Comp Metabolic Ith314 GLUCOSE 112 mg/dL 12/23/2015 Comp Metabolic Feo455 Creat 0.9 mg/dL 12/23/2015 Comp Metabolic Vlr665 eGFR 70 ml/min/1.73m2 12/23/2015 Comp Metabolic Pcd734 BUN 16 mg/dL 12/23/2015 Comp Metabolic Rlr633 B/C Ratio 18.2 Ratio 12/23/2015 Comp Metabolic Zuo148 CALCIUM 9.5 mg/dL 12/23/2015 Comp Metabolic Hwm421 ALK PHOS 117 U/L 12/23/2015 Comp Metabolic Ncp274 AST(SGOT) 18 U/L 12/23/2015 Comp Metabolic Wrn556 ALT(SGPT) 22 U/L 12/23/2015 Comp Metabolic Uib650 BILI T 0.6 mg/dL 12/23/2015 Comp Metabolic Krd832 ALBUMIN 4.1 g/dL 12/23/2015 Comp Metabolic Dkk798 TPRO 6.9 g/dL 12/23/2015 Comp Metabolic Kmb734 GLOB 2.8 g/dL 12/23/2015 Comp Metabolic Ndg063 A/G Ratio 1.5 Ratio 12/23/2015 Comp Metabolic Vlu642 Osmo 276 mOsmo 12/23/2015 Urinalysis Ord28 U-Color Yellow 12/23/2015 Urinalysis [...] 48 hours from collection if refrigerated) 12/23/2015 Cbc With Differential Ord2 WBC 4.65 [...] 28.8 pg 12/23/2015 Cbc With Differential Ord2 [place]% 10.3 % 12/23/2015 Cbc With Differential Ord2 [...] 1.43 K/ul 12/23/2015 Cbc With Differential Ord2 [place] ABS# 0.5 K/ul 12/23/2015 Cbc With Differential Ord2 Eos ABS# 0.1 K/ul 12/23/2015 Cbc With Differential Ord2 Baso ABS# 0.0 K/ul 12/23/2015 Cbc With Differential Ord2 New Analyzer Notice Please note new ref ranges starting 10-01-2015 due to implemntation of new five part differential hematolgy analyzer. 12/23/2015 Tsh Ord6 hTSH II 0.11 uIU/mL 12/23/2015 Cbc With Differential Ord2 WBC 5.1 K/uL [...] Tsh Ord6 hTSH II 0.17 uIU/mL 06/12/2015 Free T4 Rpn908 FREE T4 0.99 ng/dL 06/12/2015 Lipid Ord30 CHOL 203 mg/dL 06/12/2015 Lipid Ord30 HDL 52.0 mg/dl 06/12/2015 Lipid Ord30 TRIG 145 mg/dL 06/12/2015 Lipid Ord30 LDL 122 mg/dL 06/12/2015 Lipid Ord30 C/HDL 3.9 Ratio 06/12/2015 Comp Metabolic Dvp395 NA 138 mEq/L 06/12/2015 Comp Metabolic Lul648 K 4.4 mEq/L 06/12/2015 Comp Metabolic Rvf534 CL 102 mEq/L 06/12/2015 Comp Metabolic Vqr112 CO2 27.0 mEq/L 06/12/2015 Comp Metabolic Boy613 ANION GAP 13 06/12/2015 Comp Metabolic Ygu070 GLUCOSE 99 mg/dL 06/12/2015 Comp Metabolic Tfg786 Creat 0.9 mg/dL 06/12/2015 Comp Metabolic Dxu395 eGFR 67 ml/min/1.73m2 06/12/2015 Comp Metabolic Zxh390 BUN 13 mg/dL 06/12/2015 Comp Metabolic Vxs520 B/C Ratio 14.3 Ratio 06/12/2015 Comp Metabolic Vfy240 CALCIUM 9.6 mg/dL 06/12/2015 Comp Metabolic Ruh372 ALK PHOS 109 U/L 06/12/2015 Comp Metabolic Bsa868 AST(SGOT) 15 U/L 06/12/2015 Comp Metabolic Qan359 ALT(SGPT) 17 U/L 06/12/2015 Comp Metabolic Dvn176 BILI T 0.6 mg/dL 06/12/2015 Comp Metabolic Uhp412 ALBUMIN 4.0 g/dL 06/12/2015 Comp Metabolic Qbz424 TPRO 6.8 g/dL 06/12/2015 Comp Metabolic Bif808 GLOB 2.8 g/dL 06/12/2015 Comp Metabolic Izx100 A/G Ratio 1.4 Ratio 06/12/2015 Comp Metabolic Iko135 Osmo 276 mOsmo 06/12/2015 Review of Systems [...] Procedure Codes Date THER/PROPH/DIAG INJ SC/IM CPT-4: 27268 09/27/2016 TRIAMCINOLONE ACET INJ NOS CPT-4: J3301 09/27/2016 TRIAMCINOLONE ACET INJ NOS CPT-4: J3301 01/21/2015 Vital Signs Date Vital 09/29/2017 Blood Pressure 1: 132/84 Code : 8480-6 BMI: 34.2 Code : 16953-7 Heart Rate 1 : 85 bpm Height: 5'7" SpO2: 96% Weight: 218 lbs 8 oz 03/25/2017 Blood Pressure 1: 124/82 Code : 8480-6 BMI: 34.5 Code : 24268-1 Heart Rate 1 : 81 bpm Height: 5'7" SpO2: 96% Weight: 220 lbs 09/27/2016 Blood Pressure 1: 114/76 Code : 8480-6 BMI: 34.3 Code : 71864-5 Heart Rate 1 : 92 bpm Height: 5'7" SpO2: 95% Temperature: 36.8 (C) / 98.3 (F) Weight: 219 lbs 07/26/2016 Blood Pressure 1: 122/82 Code : 8480-6 BMI: 34.3 Code : 41512-4 Heart Rate 1 : 76 bpm Height: 5'7" SpO2: 96% Weight: 219 lbs 06/21/2016 Blood Pressure 1: 130/80 Code : 8480-6 BMI: 34.9 Code : 13752-7 Heart Rate 1 : 77 bpm Height: 5'7" SpO2: 97% Weight: 223 lbs 12/19/2015 Blood Pressure 1: 128/82 Code : 8480-6 BMI: 34.5 Code : 83358-5 Heart Rate 1 : 82 bpm Height: 5'7" SpO2: 97% Weight: 220 lbs 06/12/2015 Blood Pressure 1: 118/72 Code : 8480-6 BMI: 33.2 Code : 68568-5 Heart Rate 1 : 65 bpm Height: 5'7" SpO2: 98% Weight: 212 lbs 01/21/2015 Blood Pressure 1: 128/90 Code : 8480-6 BMI: 33.0 Code : 02313-2 Heart Rate 1 : 84 bpm Height: [...] data Encounters Encounter Performer Location Codes Date ([id number]) PREV VISIT EST AGE 40-64 Diagnosis: Encounter for general adult medical examination without abnormal findings[ICD10: Z00.00] Makayla Evangelista MD, [facility] CPT-4: 78909 09/29/2017 [id number]) [id number] EST. PATIENT, LEVEL IV Diagnosis: Essential (primary) hypertension[ICD10: I10] Diagnosis: Mixed hyperlipidemia[ICD10: E78.2] Diagnosis: Hypothyroidism, unspecified[ICD10: E03.9] [facility] CPT-4: 27677 03/25/2017 ([id number]) [id number] EST. PATIENT, LEVEL III Diagnosis: Cough[ICD10: R05] Diagnosis: Acute recurrent maxillary sinusitis[ICD10: J01.01] [facility] CPT-4: 09863 09/27/2016 [id number]) [id number] EST. PATIENT, LEVEL III Diagnosis: Essential (primary) hypertension[ICD10: I10] Diagnosis: Other obesity due to excess calories[ICD10: E66.09] Diagnosis: Unspecified ovarian cyst, right side[ICD10: N83.201] Diagnosis: Encounter for screening mammogram for malignant neoplasm of breast[ ICD10: Z12.31] Betty Evangelista MD, [facility] CPT-4: 37526 07/26/2016 ([id number]) 02030 EST. PATIENT, LEVEL IV Diagnosis: Essential (primary) hypertension[ICD10: I10] Diagnosis: Mixed hyperlipidemia[ICD10: E78.2] Diagnosis: Hypothyroidism, unspecified[ICD10: E03.9] Diagnosis: Other obesity due to excess calories[ICD10: E66.09] Betty Evangelista MD, [facility] CPT-4: 49119 06/21/2016 ([id number]) 74525 EST. PATIENT, LEVEL IV Diagnosis: Essential (primary) hypertension[ICD10: I10] Diagnosis: Mixed hyperlipidemia[ICD10: E78.2] Diagnosis: Hypothyroidism, unspecified[ICD10: E03.9] Betty Evangelista MD, [facility] CPT-4: 47228 12/19/2015 ([id number]) 03358 EST. PATIENT, LEVEL IV Diagnosis: HYPOTHYROIDISM[ICD9: 244.9] Diagnosis: HYPERLIPIDEMIA[ICD9: 272.4] Diagnosis: ESSENTIAL HYPERTENSION[ICD9: 401.9] Makayla Evangelista MD, [facility] CPT-4: 16193 06/12/2015 ([id number]) OFFICE/OUTPATIENT VISIT NEW Diagnosis: ALLERGIC RHINITIS[ICD9: 477.9] Diagnosis: ESSENTIAL HYPERTENSION[ICD9: 401.9] Betty Evangelista MD, [facility] CPT-4: 18379 01/21/2015 Plan of Care Planned Activity Notes Codes Status Date Appointment: [phone] ([facility] Moderate 10/26/2017 Appointment: [facility] ([place] min) Moderate 09/29/2017 Patient Education: Patient Medication Summary Completed 09/29/2017 Appointment: Betty Suárez WPtel: [phone] [phone] [place] (15 min) Moderate 03/25/2017 Patient Education: Patient Medication Summary Completed 03/25/2017 Patient Education: Obesity Completed 03/25/2017 Patient Education: Patient Medication Summary Completed 03/25/2017 Appointment: Betty Suárez WPtel: [phone] [phone] [place] (30 min) Complex 09/27/2016 Patient Education: Patient Medication Summary Completed 09/27/2016 Patient Education: Obesity Completed 09/27/2016 Appointment: Betty Suárez WPtel: [facility]5 [phone] [place] (30 min) Complex 07/26/2016 Patient Education: Patient Medication Summary Completed 07/26/2016 Patient Education: Obesity Completed 07/26/2016 Appointment: Betty Suárez WPtel: [facility]5 [phone] [place] (30 min) Complex 06/21/2016 Patient Education: Patient Medication Summary Completed 06/21/2016 Patient Education: Obesity Completed 06/21/2016 Care Plan: Tsh Pending 06/21/2016 Care Plan: Lipid Pending 06/21/2016 Care Plan: Free T4 Pending 06/21/2016 Care Plan: Comp Metabolic Pending 06/21/2016 Care Plan: Cbc With Differential Pending 06/21/2016 Care Plan: BMI Above normal followup SELF-MGMT EDUC & TRAIN 1 PT Pending 2015 Appointment: [facility]rez [facility]el[phone] [place] (15 min) Moderate 01/01/2016 Patient Education: Patient Medication Summary Completed 12/19/2015 Patient Education: Obesity Completed 12/19/2015 Patient Education: Hypertension Completed 12/19/2015 Appointment: Makayla Evangelista WPtel[facility] [phone] [place] ([place]) Moderate 12/09/2015 Appointment: Makayla Evangelista WPtel: [address] [place], [place] [phone] [place] (15 min) Moderate 06/12/2015 Patient Education: Patient Medication Summary Completed 06/12/2015 Patient Education: Hypertension Completed 06/12/2015 Patient Education: Patient Medication Summary Completed 01/21/2015 Patient Education: Hypertension Completed 01/21/2015 Instructions No Instructions
--- OUTSIDE RECORDS SUMMARY | 2018-03-10 16:34 | XMS REPORT | CCD ---
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 Name Role Phone PP Unavailable CCM Unavailable Summary Purpose Interface Exchange Insurance Providers Payer name Policy type / Coverage type Covered democrat ID Effective Begin Date Effective End Date Blue Cross Blue [facility] Blue Cross/Blue DailyCred [id number] 2017 Unknown Family history Mother Diagnosis Age At Onset Heart disease Unknown Father Diagnosis Age At Onset Stroke Unknown Heart Attack Unknown Sister Diagnosis Age At Onset Diabetes mellitus Type 2 Unknown Social History Social History Element Codes Description Effective Dates Employment Unknown 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 - [employer] - now working for [employer] Started May 2017 09/29/2017 Marital status Unknown 01/21/2015 Number of children Unknown 1 01/21/[address]: 555922304 Has never smoked or chewed tobacco 01/21/2015 [...] Start Date Stop Date Status Fill Instructions Xanax 0.5 mg tablet RxNorm: 701768 Tablet(s) TAKE ONE TABLET BY MOUTH EVERY 6 HOURS NEEDED FOR ANXIETY 10/13/2017 Active betamethasone valerate 0.1 % topical ointment RxNorm: 625824 1 Application TOP BID until lesions are healed, then as needed 09/29/2017 10/28/2017 Active atenolol 100 mg tablet RxNorm: 591996 1 Tablet(s) PO daily TAKE 1 BY MOUTH DAILY 08/19/2017 2018 Active D/C metoprolol 100mg atenolol 100 mg tablet RxNorm: 831337 1 Tablet(s) PO daily TAKE 1 BY MOUTH DAILY 08/09/2017 08/09/2017 Inactive metoprolol succinate ER 100 mg tablet,extended release 24 hr RxNorm: 345081 1 Tablet(s) PO daily 08/09/2017 08/18/2017 Inactive metoprolol succinate ER 100 mg tablet,extended release 24 hr RxNorm: 699467 1 Tablet(s) PO daily 08/09/2017 08/08/2017 Inactive atenolol 100 mg tablet RxNorm: 171333 1 Tablet(s) PO daily TAKE 1 BY MOUTH DAILY 07/14/2017 08/08/2017 Inactive Xanax 0.5 mg tablet RxNorm: 007511 TAKE ONE TABLET BY MOUTH EVERY 6 HOURS NEEDED FOR ANXIETY 05/31/2017 08/27/2017 Inactive Generic For:*XANAX 0.5 MG TABLET 05/30/2017 12:57:26 PM famotidine 20 mg tablet RxNorm: 477637 TAKE 1 BY MOUTH DAILY 07/25/2018 Active simvastatin 40 mg tablet RxNorm: 717675 TAKE 1 BY MOUTH DAILY 05/02/2017 07/25/2018 Active liothyronine 5 mcg tablet RxNorm: 249804 TAKE 1 BY MOUTH DAILY 02/21/2017 08/19/2017 Inactive venlafaxine ER 150 mg capsule,extended release 24 hr RxNorm: 838355 TAKE 1 BY MOUTH DAILY 02/21/2017 08/19/2017 Inactive levothyroxine 112 mcg tablet RxNorm: 170259 TAKE 1 BY MOUTH DAILY 02/21/2017 08/19/2017 Inactive atenolol 100 mg tablet RxNorm: 113246 TAKE 1 BY MOUTH DAILY 01/201707/13/2017 Inactive Xanax 0.5 mg tablet RxNorm: 559656 Tablet(s) TAKE ONE TABLET BY MOUTH EVERY 6 HOURS NEEDED FOR ANXIETY 02/08/201708/2017 Inactive Generic For:*XANAX 0.5 MG TABLET 01/03/2017 9:54:27 AM Topicort 0.25 % topical cream RxNorm: 47865 1 Application TOP UD 02/07/2017 02/16/2017 Inactive Xanax 0.5 mg tablet RxNorm: 544244 TAKE ONE TABLET BY MOUTH EVERY 6 HOURS NEEDED FOR ANXIETY 01/03/2017 02/07/2017 Inactive Generic For:*XANAX 0.5 MG TABLET 01/03/2017 9:54:27 AM Tamiflu 75 mg capsule RxNorm: 598919 1 Capsule(s) PO daily 11/2411/23/2016 Inactive Tamiflu 75 mg capsule RxNorm: 262697 1 Capsule(s) PO daily 11/2412/03/2016 Inactive Flonase Allergy Relief 50 mcg/actuation nasal spray, suspension RxNorm: 3855268 [place] NASAL daily 11/15/2016 03/14/2017 Inactive [SAVINGS FOR NON- COVERED DRUGS -- BIN:[id number], PCN: ASPROD1, Group: XXXXX, ID# XXXXXXX, Questions : . THIS IS NOT INSURANCE.] levothyroxine 112 mcg tablet RxNorm: 525575 TAKE 1 BY MOUTH DAILY 10/27/2016 02/20/2017 Inactive Diflucan 150 mg tablet RxNorm: 168839 1 Tablet(s) PO daily 10/10/2016 Inactive Diflucan 150 mg tablet RxNorm: 059205 1 Tablet(s) PO daily 10/17/2016 Inactive Augmentin 500 mg-125 mg tablet RxNorm: 316921 1 Tablet(s) PO TID 09/27/2016 10/03/2016 Inactive Kenalog 40 mg/mL suspension for injection RxNorm: 5236436 Milliliter(s) Inj 09/27/2016 09/27/2016 Inactive Xanax 0.5 mg tablet RxNorm: 359035 Tablet(s) TAKE ONE TABLET BY MOUTH EVERY 6 HOURS NEEDED FOR ANXIETY 09/03/2016 Inactive Contrave 8 mg-90 mg tablet,extended release RxNorm: 3250694 2 Tablet(s) PO BID 06/21/2016 03/24/2017 Inactive may give 90 day supply if covered by insurance-pt bringing copay card Topicort 0.25 % topical cream RxNorm: 19032 1 Application TOP UD 06/21/2016 06/30/2016 Inactive Xanax 0.5 mg tablet RxNorm: 170436 Tablet(s) TAKE ONE TABLET BY MOUTH EVERY 6 HOURS NEEDED FOR ANXIETY 05/06/2016 Inactive Generic For:*XANAX 0.5 MG TABLET N O T I C E PRESCRIPTION PREVIOUSLY AUTHORIZED BY DOCTOR:TITA SAMSON 04/14/2015 10:10:53 AM Xanax 0.5 mg tablet RxNorm: 852797 Tablet(s) TAKE ONE TABLET BY MOUTH EVERY 6 HOURS NEEDED FOR ANXIETY 05/04/2016 Inactive Generic For:*XANAX 0.5 MG TABLET N O T I C E PRESCRIPTION PREVIOUSLY AUTHORIZED BY DOCTOR:TITA SAMSON 04/14/2015 10:10:53 AM liothyronine 5 mcg tablet RxNorm: 264593 1 Tablet(s) PO daily 04/16/2016 02/20/2017 Inactive famotidine 20 mg tablet RxNorm: 120028 1 Tablet(s) PO daily 04/10/2017 Inactive atenolol 100 mg tablet RxNorm: 249606 1 Tablet(s) PO daily 02/20/2017 Inactive simvastatin 40 mg tablet RxNorm: 321596 1 Tablet(s) PO daily 04/10/2017 Inactive levothyroxine 112 mcg tablet RxNorm: 393581 1 Tablet(s) PO daily 04/16/2016 10/12/2016 Inactive venlafaxine ER 150 mg capsule,extended release 24 hr RxNorm: 655320 1 Capsule(s) PO daily 04/16/2016 02/20/2017 Inactive Flonase Allergy Relief 50 mcg/actuation nasal spray, suspension RxNorm: 2425838 [place] 2 [place] NASAL daily 11/14/2015 03/12/2016 Inactive [SAVINGS FOR NON- COVERED DRUGS -- BIN:[id number], PCN: ASPROD1, Group: XXXXX, ID# XXXXXXX, Questions : . THIS IS NOT INSURANCE.] Zithromax Z-Jean 250 mg tablet RxNorm: 710915 1 Tablet(s) PO 04/15/2016 Inactive zpack x 1 Xanax 0.5 mg tablet RxNorm: 708907 Tablet(s) TAKE ONE TABLET BY MOUTH EVERY 6 HOURS NEEDED FOR ANXIETY 10/23/201510/2015 Inactive Generic For:*XANAX 0.5 MG TABLET N O T I C E PRESCRIPTION PREVIOUSLY AUTHORIZED BY DOCTOR:TITA SAMSON 04/14/2015 10:10:53 AM Xanax 0.5 mg tablet RxNorm: 936162 Tablet(s) TAKE ONE TABLET BY MOUTH EVERY 6 HOURS NEEDED FOR ANXIETY 06/19/2015 Inactive Generic For:*XANAX 0.5 MG TABLET N O T I C E PRESCRIPTION PREVIOUSLY AUTHORIZED BY DOCTOR:TITA SAMSON 04/14/2015 10:10:53 AM Xanax 0.5 mg tablet RxNorm: 588001 TAKE ONE TABLET BY MOUTH EVERY 6 HOURS NEEDED FOR ANXIETY 04/15/2015 05/13/2015 Inactive Generic For:*XANAX 0.5 MG TABLET N O T I C E PRESCRIPTION PREVIOUSLY AUTHORIZED BY DOCTOR:TITA SAMSON 04/14/2015 10:10:53 AM Levaquin 500 mg tablet RxNorm: 017224 1 Tablet(s) PO daily 03/16/2015 Inactive Levaquin 500 mg tablet RxNorm: 180348 1 Tablet(s) PO daily 03/09/2015 Inactive amoxicillin 500 mg capsule RxNorm: 712167 1 Capsule(s) PO TID 02/21/2015 03/02/2015 Inactive instructed to take probiotic while on abt amoxicillin 500 mg capsule RxNorm: 843795 1 Capsule(s) PO TID 02/21/2015 02/20/2015 Inactive instructed to take probiotic while on abt Flonase Allergy Relief 50 mcg/actuation nasal spray, suspension RxNorm: 2 [place] NASAL daily 02/20/2015 06/19/2015 Inactive [SAVINGS FOR NON-COVERED DRUGS -- BIN:638445, PCN: ASPROD1, Group: XXXXX, ID# XXXXXXX, Questions: [phone]. THIS IS NOT INSURANCE.] Xanax 0.5 mg tablet RxNorm: 459107 1 Tablet(s) PO Q6 201404/15/2015 Inactive atenolol 100 mg tablet RxNorm: 349971 1 Tablet(s) PO daily 10/201404/15/2016 Inactive famotidine 20 mg tablet RxNorm: 308461 1 Tablet(s) PO daily 10/201404/15/2016 Inactive levothyroxine 112 mcg tablet RxNorm: 224661 1 Tablet(s) PO daily 02/18/2015 04/15/2016 Inactive famotidine 20 mg tablet RxNorm: 666216 1 Tablet(s) PO daily 10/201402/17/2015 Inactive simvastatin 40 mg tablet RxNorm: 023532 1 Tablet(s) PO daily 04/15/2016 Inactive venlafaxine ER 150 mg capsule,extended release 24 hr RxNorm: 348767 1 Capsule(s) PO daily 02/18/2015 04/15/2016 Inactive liothyronine 5 mcg tablet RxNorm: 504081 1 Tablet(s) PO daily 02/18/2015 04/15/2016 Inactive Flonase Allergy Relief 50 mcg/actuation nasal spray, suspension RxNorm: 2 [place] NASAL daily 01/21/2015 02/19/2015 Inactive [SAVINGS FOR NON-COVERED DRUGS -- BIN:603206, PCN: ASPROD1, Group: XXXXX, ID# [email or web address], Questions: [phone]. THIS IS NOT INSURANCE.] triamcinolone acetonide 40 mg/mL suspension for injection RxNorm: 6236051 1 Milliliter(s) Inj 01/21/2015 01/21/2015 Inactive [SAVINGS FOR NON-COVERED DRUGS -- BIN:720687, PCN: ASPROD1, Group: XXXXX, ID# [email or web address], Questions: [phone]. THIS IS NOT INSURANCE.] atenolol 100 mg tablet RxNorm: 929339 1 Tablet(s) PO daily No Start Date 02/17/2015 Inactive liothyronine 5 mcg tablet RxNorm: 345374 1 Tablet(s) PO daily No Start Date 02/17/2015 Inactive Xanax 0.5 mg tablet RxNorm: 206420 1 Tablet(s) PO Q6 No Start Date 02/17/2015 Inactive Zithromax Z-Jean 250 mg tablet RxNorm: 470853 1 Tablet(s) PO No Start Date 11/13/2015 Inactive zpack x 1 simvastatin 40 mg tablet RxNorm: 229132 1 Tablet(s) PO daily No Start Date 02/17/2015 Inactive venlafaxine ER 150 mg capsule,extended release 24 hr RxNorm: 371096 1 Capsule(s) PO daily No Start Date 02/17/2015 Inactive levothyroxine 112 mcg capsule RxNorm: 230863 1 Capsule(s) PO daily No Start Date 02/17/2015 Inactive Medication Administered Medication Codes Instructions Start Date Status Kenalog 40 mg/mL suspension for injection RxNorm: 5997284 Milliliter 09/27/2016 No longer Active triamcinolone acetonide 40 mg/mL suspension for injection RxNorm: 8082238 1Milliliter 01/21/2015 No longer Active Immunizations Vaccine [...] 29.1 pg 09/29/2017 Cbc With Differential Ord2 [place]% 9.4 % 09/29/2017 Cbc With Differential Ord2 [...] 1.19 K/ul 09/29/2017 Cbc With Differential Ord2 [place] ABS# 0.5 K/ul 09/29/2017 Cbc With Differential Ord2 Eos ABS# 0.1 K/ul 09/29/2017 Cbc With Differential Ord2 Baso ABS# 0.0 K/ul 09/29/2017 Free T4 Bam746 FREE T4 1.20 ng/dL 09/29/2017 Comp Metabolic Rir734 NA 141 mEq/L 09/29/2017 Comp Metabolic Nxj071 K 4.3 mEq/L 09/29/2017 Comp Metabolic Gmt857 CL 106 mEq/L 09/29/2017 Comp Metabolic Jvl341 CO2 28.0 mEq/L 09/29/2017 Comp Metabolic Stu444 ANION GAP 11 09/29/2017 Comp Metabolic Uxe614 GLUCOSE 105 mg/dL 09/29/2017 Comp Metabolic Kea534 Creat 0.8 mg/dL 09/29/2017 Comp Metabolic Eef943 eGFR 73 ml/min/1.73m2 09/29/2017 Comp Metabolic Dpd021 BUN 15 mg/dL 09/29/2017 Comp Metabolic Tzr495 B/C Ratio 17.9 Ratio 09/29/2017 Comp Metabolic Wkz537 CALCIUM 9.7 mg/dL 09/29/2017 Comp Metabolic Daj912 ALK PHOS 103 U/L 09/29/2017 Comp Metabolic Gqk359 AST(SGOT) 17 U/L 09/29/2017 Comp Metabolic Eue369 ALT(SGPT) 22 U/L 09/29/2017 Comp Metabolic Xmw296 BILI T 0.6 mg/dL 09/29/2017 Comp Metabolic Thx784 ALBUMIN 4.0 g/dL 09/29/2017 Comp Metabolic Ihf511 TPRO 7.0 g/dL 09/29/2017 Comp Metabolic Riq800 GLOB 3.0 g/dL 09/29/2017 Comp Metabolic Bqf369 A/G Ratio 1.3 Ratio 09/29/2017 Comp Metabolic Dfk735 Osmo 282 mOsmo 09/29/2017 Tsh Ord6 hTSH [...] 30.0 pg 03/25/2017 Cbc With Differential Ord2 [place]% 9.5 % 03/25/2017 Cbc With Differential Ord2 [...] 1.64 K/ul 03/25/2017 Cbc With Differential Ord2 [place] ABS# 0.5 K/ul 03/25/2017 Cbc With Differential Ord2 Eos ABS# 0.1 K/ul 03/25/2017 Cbc With Differential Ord2 Baso ABS# 0.0 K/ul 03/25/2017 Lipid Ord30 CHOL 232 mg/dL 03/25/2017 Lipid Ord30 HDL 45.0 mg/dl 03/25/2017 Lipid Ord30 TRIG 244 mg/dL 03/25/2017 Lipid Ord30 LDL 138 mg/dL 03/25/2017 Lipid Ord30 C/HDL 5.2 Ratio 03/25/2017 Tsh Ord6 hTSH II 0.08 uIU/mL 03/25/2017 Comp Metabolic Zjr229 NA 140 mEq/L 03/25/2017 Comp Metabolic Jfj759 K 4.1 mEq/L 03/25/2017 Comp Metabolic Mmx404 CL 105 mEq/L 03/25/2017 Comp Metabolic Isk078 CO2 26.0 mEq/L 03/25/2017 Comp Metabolic Swa352 ANION GAP 13 03/25/2017 Comp Metabolic Svk186 GLUCOSE 127 mg/dL 03/25/2017 Comp Metabolic Izd678 Creat 0.9 mg/dL 03/25/2017 Comp Metabolic Kmc186 eGFR 71 ml/min/1.73m2 03/25/2017 Comp Metabolic Kwe103 BUN 13 mg/dL 03/25/2017 Comp Metabolic Hyo056 B/C Ratio 15.1 Ratio 03/25/2017 Comp Metabolic Res995 CALCIUM 9.4 mg/dL 03/25/2017 Comp Metabolic Ify808 ALK PHOS 112 U/L 03/25/2017 Comp Metabolic Vib272 AST(SGOT) 21 U/L 03/25/2017 Comp Metabolic Hgk189 ALT(SGPT) 26 U/L 03/25/2017 Comp Metabolic Dap424 BILI T 0.6 mg/dL 03/25/2017 Comp Metabolic Wry677 ALBUMIN 4.0 g/dL 03/25/2017 Comp Metabolic Qma391 TPRO 6.6 g/dL 03/25/2017 Comp Metabolic Coa904 GLOB 2.6 g/dL 03/25/2017 Comp Metabolic Emd544 A/G Ratio 1.5 Ratio 03/25/2017 Comp Metabolic Pky676 Osmo 281 mOsmo 03/25/2017 Free T4 Chj693 FREE T4 1.02 ng/dL 03/25/2017 %Hba1C Ude408 % HbA1c 30696-6 5.7 % 03/25/2017 %Hba1C Urt941 Gluc Ave 117 mg/dL 03/25/2017 Comp Metabolic Ich547 NA 139 mEq/L 06/21/2016 Comp Metabolic Npi247 K 4.2 mEq/L 06/21/2016 Comp Metabolic Unw564 CL 104 mEq/L 06/21/2016 Comp Metabolic Ofs020 CO2 28.0 mEq/L 06/21/2016 Comp Metabolic Zbx054 ANION GAP 11 06/21/2016 Comp Metabolic Ekz625 GLUCOSE 112 mg/dL 06/21/2016 Comp Metabolic Jlm522 Creat 0.9 mg/dL 06/21/2016 Comp Metabolic Wad952 eGFR 72 ml/min/1.73m2 06/21/2016 Comp Metabolic Xoi108 BUN 14 mg/dL 06/21/2016 Comp Metabolic Ich154 B/C Ratio 16.5 Ratio 06/21/2016 Comp Metabolic Aup250 CALCIUM 9.2 mg/dL 06/21/2016 Comp Metabolic Xzv161 ALK PHOS 124 U/L 06/21/2016 Comp Metabolic Lkp073 AST(SGOT) 17 U/L 06/21/2016 Comp Metabolic Ywz640 ALT(SGPT) 20 U/L 06/21/2016 Comp Metabolic Dhm967 BILI T 0.5 mg/dL 06/21/2016 Comp Metabolic Jnp807 ALBUMIN 3.9 g/dL 06/21/2016 Comp Metabolic Bie485 TPRO 6.7 g/dL 06/21/2016 Comp Metabolic Mba580 GLOB 2.8 g/dL 06/21/2016 Comp Metabolic Ruw377 A/G Ratio 1.4 Ratio 06/21/2016 Comp Metabolic Pnx279 Osmo 279 mOsmo 06/21/2016 Free T4 Owu433 FREE T4 0.86 ng/dL 06/21/2016 Tsh Ord6 [...] 29.2 pg 06/21/2016 Cbc With Differential Ord2 [place]% 10.5 % 06/21/2016 Cbc With Differential Ord2 [...] 1.42 K/ul 06/21/2016 Cbc With Differential Ord2 [place] ABS# 0.5 K/ul 06/21/2016 Cbc With Differential Ord2 Eos ABS# 0.1 K/ul 06/21/2016 Cbc With Differential Ord2 Baso ABS# 0.0 K/ul 06/21/2016 Lipid Ord30 CHOL 209 mg/dL 06/21/2016 Lipid Ord30 HDL 48.0 mg/dl 06/21/2016 Lipid Ord30 TRIG 199 mg/dL 06/21/2016 Lipid Ord30 LDL 121 mg/dL 06/21/2016 Lipid Ord30 C/HDL 4.4 Ratio 06/21/2016 Free T4 Kst526 FREE T4 1.00 ng/dL 12/23/2015 Lipid Ord30 CHOL 194 mg/dL 12/23/2015 Lipid Ord30 HDL 48.0 mg/dl 12/23/2015 Lipid Ord30 TRIG 240 mg/dL 12/23/2015 Lipid Ord30 LDL 98 mg/dL 12/23/2015 Lipid Ord30 C/HDL 4.0 Ratio 12/23/2015 Comp Metabolic Yez034 NA 137 mEq/L 12/23/2015 Comp Metabolic Igx219 K 4.1 mEq/L 12/23/2015 Comp Metabolic Dlu554 CL 102 mEq/L 12/23/2015 Comp Metabolic Btx670 CO2 26.0 mEq/L 12/23/2015 Comp Metabolic Yks576 ANION GAP 13 12/23/2015 Comp Metabolic Nei997 GLUCOSE 112 mg/dL 12/23/2015 Comp Metabolic Inr226 Creat 0.9 mg/dL 12/23/2015 Comp Metabolic Auo658 eGFR 70 ml/min/1.73m2 12/23/2015 Comp Metabolic Coc349 BUN 16 mg/dL 12/23/2015 Comp Metabolic Wgr377 B/C Ratio 18.2 Ratio 12/23/2015 Comp Metabolic Vmp044 CALCIUM 9.5 mg/dL 12/23/2015 Comp Metabolic Nqi584 ALK PHOS 117 U/L 12/23/2015 Comp Metabolic Gyi894 AST(SGOT) 18 U/L 12/23/2015 Comp Metabolic Esg997 ALT(SGPT) 22 U/L 12/23/2015 Comp Metabolic Mpk499 BILI T 0.6 mg/dL 12/23/2015 Comp Metabolic Hqy170 ALBUMIN 4.1 g/dL 12/23/2015 Comp Metabolic Myc227 TPRO 6.9 g/dL 12/23/2015 Comp Metabolic Zlc687 GLOB 2.8 g/dL 12/23/2015 Comp Metabolic Uad590 A/G Ratio 1.5 Ratio 12/23/2015 Comp Metabolic Lur624 Osmo 276 mOsmo 12/23/2015 Urinalysis Ord28 U-Color [...] 28.8 pg 12/23/2015 Cbc With Differential Ord2 [place]% 10.3 % 12/23/2015 Cbc With Differential Ord2 [...] 1.43 K/ul 12/23/2015 Cbc With Differential Ord2 [place] ABS# 0.5 K/ul 12/23/2015 Cbc With Differential [...] hTSH II 0.17 uIU/mL 06/12/2015 Free T4 Fba580 FREE T4 0.99 ng/dL 06/12/2015 Lipid Ord30 CHOL 203 mg/dL 06/12/2015 Lipid Ord30 HDL 52.0 mg/dl 06/12/2015 Lipid Ord30 TRIG 145 mg/dL 06/12/2015 Lipid Ord30 LDL 122 mg/dL 06/12/2015 Lipid Ord30 C/HDL 3.9 Ratio 06/12/2015 Comp Metabolic Oyu374 NA 138 mEq/L 06/12/2015 Comp Metabolic Ivg144 K 4.4 mEq/L 06/12/2015 Comp Metabolic Vwg450 CL 102 mEq/L 06/12/2015 Comp Metabolic Kpr694 CO2 27.0 mEq/L 06/12/2015 Comp Metabolic Srd852 ANION GAP 13 06/12/2015 Comp Metabolic Izk031 GLUCOSE 99 mg/dL 06/12/2015 Comp Metabolic Oni419 Creat 0.9 mg/dL 06/12/2015 Comp Metabolic Xth179 eGFR 67 ml/min/1.73m2 06/12/2015 Comp Metabolic Yxc490 BUN 13 mg/dL 06/12/2015 Comp Metabolic Flo608 B/C Ratio 14.3 Ratio 06/12/2015 Comp Metabolic Csb932 CALCIUM 9.6 mg/dL 06/12/2015 Comp Metabolic Kdy982 ALK PHOS 109 U/L 06/12/2015 Comp Metabolic Iwl277 AST(SGOT) 15 U/L 06/12/2015 Comp Metabolic Qnj910 ALT(SGPT) 17 U/L 06/12/2015 Comp Metabolic Nli389 BILI T 0.6 mg/dL 06/12/2015 Comp Metabolic Cot437 ALBUMIN 4.0 g/dL 06/12/2015 Comp Metabolic Toy791 TPRO 6.8 g/dL 06/12/2015 Comp Metabolic Xlh209 GLOB 2.8 g/dL 06/12/2015 Comp Metabolic Qjp176 A/G Ratio 1.4 Ratio 06/12/2015 Comp Metabolic Mjo147 Osmo 276 mOsmo 06/12/2015 Review of Systems [...] Procedure Codes Date THER/PROPH/DIAG INJ SC/IM CPT-4: 53167 09/27/2016 TRIAMCINOLONE ACET INJ NOS CPT-4: J3301 09/27/2016 TRIAMCINOLONE ACET INJ NOS CPT-4: J3301 01/21/2015 Vital Signs Date Vital 09/29/2017 Blood Pressure 1: 132/84 Code : 8480-6 BMI: 34.2 Code : 55076-0 Heart Rate 1 : 85 bpm Height: 5'7" SpO2: 96% Weight: 218 lbs 8 oz 03/25/2017 Blood Pressure 1: 124/82 Code : 8480-6 BMI: 34.5 Code : 12947-5 Heart Rate 1 : 81 bpm Height: 5'7" SpO2: 96% Weight: 220 lbs 09/27/2016 Blood Pressure 1: 114/76 Code : 8480-6 BMI: 34.3 Code : 72201-1 Heart Rate 1 : 92 bpm Height: 5'7" SpO2: 95% Temperature: 36.8 (C) / 98.3 (F) Weight: 219 lbs 07/26/2016 Blood Pressure 1: 122/82 Code : 8480-6 BMI: 34.3 Code : 76934-3 Heart Rate 1 : 76 bpm Height: 5'7" SpO2: 96% Weight: 219 lbs 06/21/2016 Blood Pressure 1: 130/80 Code : 8480-6 BMI: 34.9 Code : 87114-9 Heart Rate 1 : 77 bpm Height: 5'7" SpO2: 97% Weight: 223 lbs 12/19/2015 Blood Pressure 1: 128/82 Code : 8480-6 BMI: 34.5 Code : 20559-2 Heart Rate 1 : 82 bpm Height: 5'7" SpO2: 97% Weight: 220 lbs 06/12/2015 Blood Pressure 1: 118/72 Code : 8480-6 BMI: 33.2 Code : 39997-9 Heart Rate 1 : 65 bpm Height: 5'7" SpO2: 98% Weight: 212 lbs 01/21/2015 Blood Pressure 1: 128/90 Code : 8480-6 BMI: 33.0 Code : 67167-3 Heart Rate 1 : 84 bpm Height: [...] data Encounters Encounter Performer Location Codes Date ([id number]) PREV VISIT EST AGE 40-64 Diagnosis: Encounter for general adult medical examination without abnormal findings[ICD10: Z00.00] Makayla Evangelista MD, [facility] CPT-4: 90199 09/29/2017 ([id number]) 93447 EST. PATIENT, LEVEL IV Diagnosis: Essential (primary) hypertension[ICD10: I10] Diagnosis: Mixed hyperlipidemia[ICD10: E78.2] Diagnosis: Hypothyroidism, unspecified[ICD10: E03.9] Betty Evangelista MD, [facility] CPT-4: 21521 03/25/2017 ([id number]) 27196 EST. PATIENT, LEVEL III Diagnosis: Cough[ICD10: R05] Diagnosis: Acute recurrent maxillary sinusitis[ICD10: J01.01] Betty Evangelista MD, [facility] CPT-4: 94163 09/27/2016 ([id number]) 06529 EST. PATIENT, LEVEL III Diagnosis: Essential (primary) hypertension[ICD10: I10] Diagnosis: Other obesity due to excess calories[ICD10: E66.09] Diagnosis: Unspecified ovarian cyst, right side[ICD10: N83.201] Diagnosis: Encounter for screening mammogram for malignant neoplasm of breast[ ICD10: Z12.31] Betty Evangelista MD, [facility] CPT-4: 48498 07/26/2016 ([id number]) 56080 EST. PATIENT, LEVEL IV Diagnosis: Essential (primary) hypertension[ICD10: I10] Diagnosis: Mixed hyperlipidemia[ICD10: E78.2] Diagnosis: Hypothyroidism, unspecified[ICD10: E03.9] Diagnosis: Other obesity due to excess calories[ICD10: E66.09] Betty Evangelista MD, [facility] CPT-4: 67139 06/21/2016 ([id number]) 34456 EST. PATIENT, LEVEL IV Diagnosis: Essential (primary) hypertension[ICD10: I10] Diagnosis: Mixed hyperlipidemia[ICD10: E78.2] Diagnosis: Hypothyroidism, unspecified[ICD10: E03.9] Betty Evangelista MD, [facility] CPT-4: 66720 12/19/2015 ([id number]) 25645 EST. PATIENT, LEVEL IV Diagnosis: HYPOTHYROIDISM[ICD9: 244.9] Diagnosis: HYPERLIPIDEMIA[ICD9: 272.4] Diagnosis: ESSENTIAL HYPERTENSION[ICD9: 401.9] [facility] CPT-4: 61782 06/12/2015 ([id number]) OFFICE/OUTPATIENT VISIT NEW Diagnosis: ALLERGIC RHINITIS[ICD9: 477.9] Diagnosis: ESSENTIAL HYPERTENSION[ICD9: 401.9] [facility] CPT-4: 98683 01/21/2015 Plan of Care Planned Activity Notes Codes Status Date Appointment: Makayla Evangelista [facility] [phone] [facility] [place] [place] (15 min) Moderate 09/29/2017 Patient Education: Patient Medication Summary Completed 09/29/2017 Appointment: Betty Suárez WPtel: [phone] [phone] (15 min) Moderate 03/25/2017 Patient Education: Patient Medication Summary Completed 03/25/2017 Patient Education: Obesity Completed 03/25/2017 Patient Education: Patient Medication Summary Completed 03/25/2017 Appointment: Betty Suárez WPtel: [phone] [phone] [place] (30 min) Complex 09/27/2016 Patient Education: Patient Medication Summary Completed 09/27/2016 Patient Education: Obesity Completed 09/27/2016 Appointment: Betty Suárez WPtel: [facility] [phone] [place] (30 min) Complex 07/26/2016 Patient Education: Patient Medication Summary Completed 07/26/2016 Patient Education: Obesity Completed 07/26/2016 Appointment: Betty Suárez WPtel: [facility] [phone] [place] (30 min) Complex 06/21/2016 Patient Education: [...] PT Pending 2015 Appointment: [facility]rez [phone] [place] (15 min) Moderate 01/01/2016 Patient Education: Patient Medication Summary Completed 12/19/2015 Patient Education: Obesity Completed 12/19/2015 Patient Education: Hypertension Completed 12/19/2015 Appointment: Makayla Evangelista WPtel: [facility] [place] [place] (15 min) Moderate 12/09/2015 Appointment: Makayla Evangelista WPtel: [facility] [place] [place] (15 min) Moderate 06/12/2015 Patient Education: Patient Medication Summary Completed 06/12/2015 Patient Education: Hypertension Completed 06/12/2015 Patient Education: Patient Medication Summary Completed 01/21/2015 Patient Education: Hypertension Completed 01/21/2015 Instructions No Instructions
--- OUTSIDE RECORDS SUMMARY | 2018-03-10 16:36 | XMS REPORT | CCD ---
Author Author Betty Suárez MD, [facility] Address [address] [place] [address] Phone Care Team Providers Care Checkerer Hand Name Role Phone PP Unavailable CCM Unavailable Summary Purpose Interface Exchange Insurance Providers Payer name Policy type / Coverage type Covered green party ID Effective Begin Date Effective End Date Blue Cross Blue [facility] Blue Cross/Blue [place] [id number] 2017 Unknown Family history Mother Diagnosis Age At Onset Heart disease Unknown Father Diagnosis Age At Onset Stroke Unknown Heart Attack Unknown Sister Diagnosis Age At Onset Diabetes mellitus Type 2 Unknown Social History Social History Element Codes Description Effective Dates Employment Unknown 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 - [employer]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 - 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 working for [employer] Started May 2017 09/29/2017 Marital status Unknown 01/21/2015 Number of children Unknown 1 01/21/[address]: [id number] Has never smoked or chewed tobacco 01/21/2015 [...] Fill Instructions atenolol 100 mg tablet RxNorm: 072643 1 Tablet(s) PO daily 04/201810/21/2018 Active levothyroxine 112 mcg tablet RxNorm: 595943 1 Tablet(s) PO daily 10/27/2017 10/21/2018 Active liothyronine 5 mcg tablet RxNorm: 275830 1 Tablet(s) PO daily 10/27/2017 10/21/2018 Active simvastatin 40 mg tablet RxNorm: 266832 1 Tablet(s) PO daily 10/21/2018 Active famotidine 20 mg tablet RxNorm: 235202 Tablet(s) TAKE 1 BY MOUTH DAILY 10/27/2017 10/21/2018 Active venlafaxine ER 150 mg capsule,extended release 24 hr RxNorm: 961786 1 Capsule(s) PO daily 10/27/2017 10/21/2018 Active Augmentin 875 mg-125 mg tablet RxNorm: 166324 1 Tablet(s) PO BID 10/26/2017 11/04/2017 Active Xanax 0.5 mg tablet RxNorm: 354208 Tablet(s) TAKE ONE TABLET BY MOUTH EVERY 6 HOURS NEEDED FOR ANXIETY 10/13/2017 Active betamethasone valerate 0.1 % topical ointment RxNorm: 991184 1 Application TOP BID until lesions are healed, then as needed 09/29/2017 10/28/2017 Active atenolol 100 mg tablet RxNorm: 788974 1 Tablet(s) PO daily TAKE 1 BY MOUTH DAILY 08/19/2017 10/26/2017 Inactive D/C metoprolol 100mg atenolol 100 mg tablet RxNorm: 367901 1 Tablet(s) PO daily TAKE 1 BY MOUTH DAILY 08/09/2017 08/09/2017 Inactive metoprolol succinate ER 100 mg tablet,extended release 24 hr RxNorm: 772055 1 Tablet(s) PO daily 08/09/2017 08/18/2017 Inactive metoprolol succinate ER 100 mg tablet,extended release 24 hr RxNorm: 924390 1 Tablet(s) PO daily 08/09/2017 08/08/2017 Inactive atenolol 100 mg tablet RxNorm: 644746 1 Tablet(s) PO daily TAKE 1 BY MOUTH DAILY 07/14/2017 08/08/2017 Inactive Xanax 0.5 mg tablet RxNorm: 492270 TAKE ONE TABLET BY MOUTH EVERY 6 HOURS NEEDED FOR ANXIETY 05/31/2017 08/27/2017 Inactive Generic For:*XANAX 0.5 MG TABLET 05/30/2017 12:57:26 PM famotidine 20 mg tablet RxNorm: 275530 TAKE 1 BY MOUTH DAILY 10/26/2017 Inactive simvastatin 40 mg tablet RxNorm: 837304 TAKE 1 BY MOUTH DAILY 05/02/2017 10/26/2017 Inactive liothyronine 5 mcg tablet RxNorm: 094550 TAKE 1 BY MOUTH DAILY 02/21/2017 08/19/2017 Inactive venlafaxine ER 150 mg capsule,extended release 24 hr RxNorm: 147743 TAKE 1 BY MOUTH DAILY 02/21/2017 08/19/2017 Inactive atenolol 100 mg tablet RxNorm: 614815 TAKE 1 BY MOUTH DAILY 01/201707/13/2017 Inactive levothyroxine 112 mcg tablet RxNorm: 700647 TAKE 1 BY MOUTH DAILY 02/21/2017 08/19/2017 Inactive Xanax 0.5 mg tablet RxNorm: 564378 Tablet(s) TAKE ONE TABLET BY MOUTH EVERY 6 HOURS NEEDED FOR ANXIETY 02/08/201708/2017 Inactive Generic For:*XANAX 0.5 MG TABLET 01/03/2017 9:54:27 AM Topicort 0.25 % topical cream RxNorm: 45286 1 Application TOP UD 02/07/2017 02/16/2017 Inactive Xanax 0.5 mg tablet RxNorm: 136380 TAKE ONE TABLET BY MOUTH EVERY 6 HOURS NEEDED FOR ANXIETY 01/03/2017 02/07/2017 Inactive Generic For:*XANAX 0.5 MG TABLET 01/03/2017 9:54:27 AM Tamiflu 75 mg capsule RxNorm: 779792 1 Capsule(s) PO daily 11/2411/23/2016 Inactive Tamiflu 75 mg capsule RxNorm: 716047 1 Capsule(s) PO daily 11/2412/03/2016 Inactive Flonase Allergy Relief 50 mcg/actuation nasal spray, suspension RxNorm: 6306442 Idanha 2 Idanha NASAL daily 11/15/2016 03/14/2017 Inactive [SAVINGS FOR NON- COVERED DRUGS -- BIN:[id number], PCN: ASPROD1, Group: XXXXX, ID# XXXXXXX, Questions : . THIS IS NOT INSURANCE.] levothyroxine 112 mcg tablet RxNorm: 810095 TAKE 1 BY MOUTH DAILY 10/27/2016 02/20/2017 Inactive Diflucan 150 mg tablet RxNorm: 341088 1 Tablet(s) PO daily 10/10/2016 Inactive Diflucan 150 mg tablet RxNorm: 329883 1 Tablet(s) PO daily 10/17/2016 Inactive Augmentin 500 mg-125 mg tablet RxNorm: 327185 1 Tablet(s) PO TID 09/27/2016 10/03/2016 Inactive Kenalog 40 mg/mL suspension for injection RxNorm: 7624981 Milliliter(s) Inj 09/27/2016 09/27/2016 Inactive Xanax 0.5 mg tablet RxNorm: 651188 Tablet(s) TAKE ONE TABLET BY MOUTH EVERY 6 HOURS NEEDED FOR ANXIETY 09/03/2016 Inactive Contrave 8 mg-90 mg tablet,extended release RxNorm: 8680442 2 Tablet(s) PO BID 06/21/2016 03/24/2017 Inactive may give 90 day supply if covered by insurance-pt bringing copay card Topicort 0.25 % topical cream RxNorm: 80804 1 Application TOP UD 06/21/2016 06/30/2016 Inactive Xanax 0.5 mg tablet RxNorm: 709842 Tablet(s) TAKE ONE TABLET BY MOUTH EVERY 6 HOURS NEEDED FOR ANXIETY 05/06/2016 Inactive Generic For:*XANAX 0.5 MG TABLET N O T I C E PRESCRIPTION PREVIOUSLY AUTHORIZED BY DOCTOR:TITA SAMSON 04/14/2015 10:10:53 AM Xanax 0.5 mg tablet RxNorm: 897254 Tablet(s) TAKE ONE TABLET BY MOUTH EVERY 6 HOURS NEEDED FOR ANXIETY 05/04/2016 Inactive Generic For:*XANAX 0.5 MG TABLET N O T I C E PRESCRIPTION PREVIOUSLY AUTHORIZED BY DOCTOR:TITA SAMSON 04/14/2015 10:10:53 AM liothyronine 5 mcg tablet RxNorm: 314676 1 Tablet(s) PO daily 04/16/2016 02/20/2017 Inactive famotidine 20 mg tablet RxNorm: 008977 1 Tablet(s) PO daily 04/10/2017 Inactive atenolol 100 mg tablet RxNorm: 805720 1 Tablet(s) PO daily 02/20/2017 Inactive simvastatin 40 mg tablet RxNorm: 452216 1 Tablet(s) PO daily 04/10/2017 Inactive levothyroxine 112 mcg tablet RxNorm: 755125 1 Tablet(s) PO daily 04/16/2016 10/12/2016 Inactive venlafaxine ER 150 mg capsule,extended release 24 hr RxNorm: 317843 1 Capsule(s) PO daily 04/16/2016 02/20/2017 Inactive Flonase Allergy Relief 50 mcg/actuation nasal spray, suspension RxNorm: 1756410 Idanha 2 Idanha NASAL daily 11/14/2015 03/12/2016 Inactive [SAVINGS FOR NON- COVERED DRUGS -- BIN:[id number], PCN: ASPROD1, Group: XXXXX, ID# XXXXXXX, Questions : . THIS IS NOT INSURANCE.] Zithromax Z-Jean 250 mg tablet RxNorm: 604100 1 Tablet(s) PO 04/15/2016 Inactive zpack x 1 Xanax 0.5 mg tablet RxNorm: 223729 Tablet(s) TAKE ONE TABLET BY MOUTH EVERY 6 HOURS NEEDED FOR ANXIETY 10/23/201510/2015 Inactive Generic For:*XANAX 0.5 MG TABLET N O T I C E PRESCRIPTION PREVIOUSLY AUTHORIZED BY DOCTOR:TITA SAMSON 04/14/2015 10:10:53 AM Xanax 0.5 mg tablet RxNorm: 623956 Tablet(s) TAKE ONE TABLET BY MOUTH EVERY 6 HOURS NEEDED FOR ANXIETY 06/19/2015 Inactive Generic For:*XANAX 0.5 MG TABLET N O T I C E PRESCRIPTION PREVIOUSLY AUTHORIZED BY DOCTOR:TITA SAMSON 04/14/2015 10:10:53 AM Xanax 0.5 mg tablet RxNorm: 427403 TAKE ONE TABLET BY MOUTH EVERY 6 HOURS NEEDED FOR ANXIETY 04/15/2015 05/13/2015 Inactive Generic For:*XANAX 0.5 MG TABLET N O T I C E PRESCRIPTION PREVIOUSLY AUTHORIZED BY DOCTOR:TITA SAMSON 04/14/2015 10:10:53 AM Levaquin 500 mg tablet RxNorm: 006463 1 Tablet(s) PO daily 03/16/2015 Inactive Levaquin 500 mg tablet RxNorm: 662539 1 Tablet(s) PO daily 03/09/2015 Inactive amoxicillin 500 mg capsule RxNorm: 168909 1 Capsule(s) PO TID 02/21/2015 03/02/2015 Inactive instructed to take probiotic while on abt amoxicillin 500 mg capsule RxNorm: 570446 1 Capsule(s) PO TID 02/21/2015 02/20/2015 Inactive instructed to take probiotic while on abt Flonase Allergy Relief 50 mcg/actuation nasal spray, suspension RxNorm: 2 Idanha NASAL daily 02/20/2015 06/19/2015 Inactive [SAVINGS FOR NON-COVERED DRUGS -- BIN:[id number], PCN: ASPROD1, Group: XXXXX, ID# XXXXXXX, Questions: [phone]. THIS IS NOT INSURANCE.] Xanax 0.5 mg tablet RxNorm: 399827 1 Tablet(s) PO Q6 201404/15/2015 Inactive atenolol 100 mg tablet RxNorm: 470843 1 Tablet(s) PO daily 10/201404/15/2016 Inactive famotidine 20 mg tablet RxNorm: 933343 1 Tablet(s) PO daily 10/201404/15/2016 Inactive levothyroxine 112 mcg tablet RxNorm: 133943 1 Tablet(s) PO daily 02/18/2015 04/15/2016 Inactive famotidine 20 mg tablet RxNorm: 581501 1 Tablet(s) PO daily 10/201402/17/2015 Inactive simvastatin 40 mg tablet RxNorm: 917010 1 Tablet(s) PO daily 04/15/2016 Inactive venlafaxine ER 150 mg capsule,extended release 24 hr RxNorm: 937081 1 Capsule(s) PO daily 02/18/2015 04/15/2016 Inactive liothyronine 5 mcg tablet RxNorm: 018366 1 Tablet(s) PO daily 02/18/2015 04/15/2016 Inactive Flonase Allergy Relief 50 mcg/actuation nasal spray, suspension RxNorm: 2 Idanha NASAL daily 01/21/2015 02/19/2015 Inactive [SAVINGS FOR NON-COVERED DRUGS -- BIN:[id number], PCN: ASPROD1, Group: XXXXX, ID# [email or web address], Questions: [phone]. THIS IS NOT INSURANCE.] triamcinolone acetonide 40 mg/mL suspension for injection RxNorm: 7487038 1 Milliliter(s) Inj 01/21/2015 01/21/2015 Inactive [SAVINGS FOR NON-COVERED DRUGS -- BIN:[id number], PCN: ASPROD1, Group: XXXXX, ID# XXXXXXX, Questions: [phone]. THIS IS NOT INSURANCE.] atenolol 100 mg tablet RxNorm: 587613 1 Tablet(s) PO daily No Start Date 02/17/2015 Inactive liothyronine 5 mcg tablet RxNorm: 477040 1 Tablet(s) PO daily No Start Date 02/17/2015 Inactive Xanax 0.5 mg tablet RxNorm: 325683 1 Tablet(s) PO Q6 No Start Date 02/17/2015 Inactive Zithromax Z-Jean 250 mg tablet RxNorm: 089196 1 Tablet(s) PO No Start Date 11/13/2015 Inactive zpack x 1 simvastatin 40 mg tablet RxNorm: 043370 1 Tablet(s) PO daily No Start Date 02/17/2015 Inactive venlafaxine ER 150 mg capsule,extended release 24 hr RxNorm: 835396 1 Capsule(s) PO daily No Start Date 02/17/2015 Inactive levothyroxine 112 mcg capsule RxNorm: 829259 1 Capsule(s) PO daily No Start Date 02/17/2015 Inactive Medication Administered Medication Codes Instructions Start Date Status Kenalog 40 mg/mL suspension for injection RxNorm: 1903349 Milliliter 09/27/2016 No longer Active triamcinolone acetonide 40 mg/mL suspension for injection RxNorm: 4899692 1Milliliter 01/21/2015 No longer Active Immunizations Vaccine [...] 29.1 pg 09/29/2017 Cbc With Differential Ord2 [place]% 9.4 % 09/29/2017 Cbc With Differential Ord2 [...] 1.19 K/ul 09/29/2017 Cbc With Differential Ord2 [place] ABS# 0.5 K/ul 09/29/2017 Cbc With Differential Ord2 Eos ABS# 0.1 K/ul 09/29/2017 Cbc With Differential Ord2 Baso ABS# 0.0 K/ul 09/29/2017 Free T4 Fph254 FREE T4 1.20 ng/dL 09/29/2017 Comp Metabolic Zrg320 NA 141 mEq/L 09/29/2017 Comp Metabolic Fov971 K 4.3 mEq/L 09/29/2017 Comp Metabolic Mnl602 CL 106 mEq/L 09/29/2017 Comp Metabolic Jfg023 CO2 28.0 mEq/L 09/29/2017 Comp Metabolic Dpm799 ANION GAP 11 09/29/2017 Comp Metabolic Qnn511 GLUCOSE 105 mg/dL 09/29/2017 Comp Metabolic Dba005 Creat 0.8 mg/dL 09/29/2017 Comp Metabolic Qoz191 eGFR 73 ml/min/1.73m2 09/29/2017 Comp Metabolic Vbz798 BUN 15 mg/dL 09/29/2017 Comp Metabolic Fvv230 B/C Ratio 17.9 Ratio 09/29/2017 Comp Metabolic Sey411 CALCIUM 9.7 mg/dL 09/29/2017 Comp Metabolic Ssy825 ALK PHOS 103 U/L 09/29/2017 Comp Metabolic Sek546 AST(SGOT) 17 U/L 09/29/2017 Comp Metabolic Arn885 ALT(SGPT) 22 U/L 09/29/2017 Comp Metabolic Ufr047 BILI T 0.6 mg/dL 09/29/2017 Comp Metabolic Uhx425 ALBUMIN 4.0 g/dL 09/29/2017 Comp Metabolic Kqi165 TPRO 7.0 g/dL 09/29/2017 Comp Metabolic Osv262 GLOB 3.0 g/dL 09/29/2017 Comp Metabolic Foe038 A/G Ratio 1.3 Ratio 09/29/2017 Comp Metabolic Exu607 Osmo 282 mOsmo 09/29/2017 Tsh Ord6 hTSH [...] 30.0 pg 03/25/2017 Cbc With Differential Ord2 [place]% 9.5 % 03/25/2017 Cbc With Differential Ord2 [...] 1.64 K/ul 03/25/2017 Cbc With Differential Ord2 [place] ABS# 0.5 K/ul 03/25/2017 Cbc With Differential Ord2 Eos ABS# 0.1 K/ul 03/25/2017 Cbc With Differential Ord2 Baso ABS# 0.0 K/ul 03/25/2017 Lipid Ord30 CHOL 232 mg/dL 03/25/2017 Lipid Ord30 HDL 45.0 mg/dl 03/25/2017 Lipid Ord30 TRIG 244 mg/dL 03/25/2017 Lipid Ord30 LDL 138 mg/dL 03/25/2017 Lipid Ord30 C/HDL 5.2 Ratio 03/25/2017 Tsh Ord6 hTSH II 0.08 uIU/mL 03/25/2017 Comp Metabolic Uho445 NA 140 mEq/L 03/25/2017 Comp Metabolic Loa243 K 4.1 mEq/L 03/25/2017 Comp Metabolic Hur212 CL 105 mEq/L 03/25/2017 Comp Metabolic Gqt138 CO2 26.0 mEq/L 03/25/2017 Comp Metabolic Nww760 ANION GAP 13 03/25/2017 Comp Metabolic Dre045 GLUCOSE 127 mg/dL 03/25/2017 Comp Metabolic Kii595 Creat 0.9 mg/dL 03/25/2017 Comp Metabolic Mgi045 eGFR 71 ml/min/1.73m2 03/25/2017 Comp Metabolic Iqw293 BUN 13 mg/dL 03/25/2017 Comp Metabolic Jaz894 B/C Ratio 15.1 Ratio 03/25/2017 Comp Metabolic Cnf034 CALCIUM 9.4 mg/dL 03/25/2017 Comp Metabolic Uxc994 ALK PHOS 112 U/L 03/25/2017 Comp Metabolic Gyu080 AST(SGOT) 21 U/L 03/25/2017 Comp Metabolic Dly243 ALT(SGPT) 26 U/L 03/25/2017 Comp Metabolic Drs427 BILI T 0.6 mg/dL 03/25/2017 Comp Metabolic Unp180 ALBUMIN 4.0 g/dL 03/25/2017 Comp Metabolic Vfk904 TPRO 6.6 g/dL 03/25/2017 Comp Metabolic Uoi513 GLOB 2.6 g/dL 03/25/2017 Comp Metabolic Dte101 A/G Ratio 1.5 Ratio 03/25/2017 Comp Metabolic Nfb773 Osmo 281 mOsmo 03/25/2017 Free T4 Mcu256 FREE T4 1.02 ng/dL 03/25/2017 %Hba1C Tfi843 % HbA1c 13803-5 5.7 % 03/25/2017 %Hba1C Lfu430 Gluc Ave 117 mg/dL 03/25/2017 Comp Metabolic Duk872 NA 139 mEq/L 06/21/2016 Comp Metabolic Qwo763 K 4.2 mEq/L 06/21/2016 Comp Metabolic Oov773 CL 104 mEq/L 06/21/2016 Comp Metabolic Vob549 CO2 28.0 mEq/L 06/21/2016 Comp Metabolic Nli927 ANION GAP 11 06/21/2016 Comp Metabolic Deg508 GLUCOSE 112 mg/dL 06/21/2016 Comp Metabolic Tif718 Creat 0.9 mg/dL 06/21/2016 Comp Metabolic Nbi138 eGFR 72 ml/min/1.73m2 06/21/2016 Comp Metabolic Nkw603 BUN 14 mg/dL 06/21/2016 Comp Metabolic Gdq828 B/C Ratio 16.5 Ratio 06/21/2016 Comp Metabolic Enj710 CALCIUM 9.2 mg/dL 06/21/2016 Comp Metabolic Uba038 ALK PHOS 124 U/L 06/21/2016 Comp Metabolic Vsj577 AST(SGOT) 17 U/L 06/21/2016 Comp Metabolic Ypn503 ALT(SGPT) 20 U/L 06/21/2016 Comp Metabolic Eni031 BILI T 0.5 mg/dL 06/21/2016 Comp Metabolic Cum909 ALBUMIN 3.9 g/dL 06/21/2016 Comp Metabolic Rpe810 TPRO 6.7 g/dL 06/21/2016 Comp Metabolic Vsd485 GLOB 2.8 g/dL 06/21/2016 Comp Metabolic Par973 A/G Ratio 1.4 Ratio 06/21/2016 Comp Metabolic Eej514 Osmo 279 mOsmo 06/21/2016 Free T4 Kqm026 FREE T4 0.86 ng/dL 06/21/2016 Tsh Ord6 [...] 29.2 pg 06/21/2016 Cbc With Differential Ord2 [place]% 10.5 % 06/21/2016 Cbc With Differential Ord2 [...] 1.42 K/ul 06/21/2016 Cbc With Differential Ord2 [place] ABS# 0.5 K/ul 06/21/2016 Cbc With Differential Ord2 Eos ABS# 0.1 K/ul 06/21/2016 Cbc With Differential Ord2 Baso ABS# 0.0 K/ul 06/21/2016 Lipid Ord30 CHOL 209 mg/dL 06/21/2016 Lipid Ord30 HDL 48.0 mg/dl 06/21/2016 Lipid Ord30 TRIG 199 mg/dL 06/21/2016 Lipid Ord30 LDL 121 mg/dL 06/21/2016 Lipid Ord30 C/HDL 4.4 Ratio 06/21/2016 Free T4 Akb624 FREE T4 1.00 ng/dL 12/23/2015 Lipid Ord30 CHOL 194 mg/dL 12/23/2015 Lipid Ord30 HDL 48.0 mg/dl 12/23/2015 Lipid Ord30 TRIG 240 mg/dL 12/23/2015 Lipid Ord30 LDL 98 mg/dL 12/23/2015 Lipid Ord30 C/HDL 4.0 Ratio 12/23/2015 Comp Metabolic Wlx534 NA 137 mEq/L 12/23/2015 Comp Metabolic Yvr363 K 4.1 mEq/L 12/23/2015 Comp Metabolic Vei476 CL 102 mEq/L 12/23/2015 Comp Metabolic Bte069 CO2 26.0 mEq/L 12/23/2015 Comp Metabolic Jqc621 ANION GAP 13 12/23/2015 Comp Metabolic Vnr255 GLUCOSE 112 mg/dL 12/23/2015 Comp Metabolic Dnx929 Creat 0.9 mg/dL 12/23/2015 Comp Metabolic Vrs734 eGFR 70 ml/min/1.73m2 12/23/2015 Comp Metabolic Kxy444 BUN 16 mg/dL 12/23/2015 Comp Metabolic Nmk202 B/C Ratio 18.2 Ratio 12/23/2015 Comp Metabolic Lch820 CALCIUM 9.5 mg/dL 12/23/2015 Comp Metabolic Kab406 ALK PHOS 117 U/L 12/23/2015 Comp Metabolic Jmy666 AST(SGOT) 18 U/L 12/23/2015 Comp Metabolic Npf566 ALT(SGPT) 22 U/L 12/23/2015 Comp Metabolic Fmz811 BILI T 0.6 mg/dL 12/23/2015 Comp Metabolic Pae004 ALBUMIN 4.1 g/dL 12/23/2015 Comp Metabolic Qdn834 TPRO 6.9 g/dL 12/23/2015 Comp Metabolic Ovc064 GLOB 2.8 g/dL 12/23/2015 Comp Metabolic Xnr581 A/G Ratio 1.5 Ratio 12/23/2015 Comp Metabolic Hzc512 Osmo 276 mOsmo 12/23/2015 Urinalysis Ord28 U-Color [...] 28.8 pg 12/23/2015 Cbc With Differential Ord2 [place]% 10.3 % 12/23/2015 Cbc With Differential Ord2 [...] 1.43 K/ul 12/23/2015 Cbc With Differential Ord2 [place] ABS# 0.5 K/ul 12/23/2015 Cbc With Differential [...] hTSH II 0.17 uIU/mL 06/12/2015 Free T4 Hie320 FREE T4 0.99 ng/dL 06/12/2015 Lipid Ord30 CHOL 203 mg/dL 06/12/2015 Lipid Ord30 HDL 52.0 mg/dl 06/12/2015 Lipid Ord30 TRIG 145 mg/dL 06/12/2015 Lipid Ord30 LDL 122 mg/dL 06/12/2015 Lipid Ord30 C/HDL 3.9 Ratio 06/12/2015 Comp Metabolic Kuo539 NA 138 mEq/L 06/12/2015 Comp Metabolic Jya566 K 4.4 mEq/L 06/12/2015 Comp Metabolic Xug718 CL 102 mEq/L 06/12/2015 Comp Metabolic Mxy331 CO2 27.0 mEq/L 06/12/2015 Comp Metabolic Cvw945 ANION GAP 13 06/12/2015 Comp Metabolic Kuc326 GLUCOSE 99 mg/dL 06/12/2015 Comp Metabolic Dxy313 Creat 0.9 mg/dL 06/12/2015 Comp Metabolic Sdj324 eGFR 67 ml/min/1.73m2 06/12/2015 Comp Metabolic Fll158 BUN 13 mg/dL 06/12/2015 Comp Metabolic Zlc922 B/C Ratio 14.3 Ratio 06/12/2015 Comp Metabolic Pvi434 CALCIUM 9.6 mg/dL 06/12/2015 Comp Metabolic Wcd465 ALK PHOS 109 U/L 06/12/2015 Comp Metabolic Cuz922 AST(SGOT) 15 U/L 06/12/2015 Comp Metabolic Epb112 ALT(SGPT) 17 U/L 06/12/2015 Comp Metabolic Tot349 BILI T 0.6 mg/dL 06/12/2015 Comp Metabolic Dmk146 ALBUMIN 4.0 g/dL 06/12/2015 Comp Metabolic Cbo367 TPRO 6.8 g/dL 06/12/2015 Comp Metabolic Tnm409 GLOB 2.8 g/dL 06/12/2015 Comp Metabolic Gzt862 A/G Ratio 1.4 Ratio 06/12/2015 Comp Metabolic Xvq555 Osmo 276 mOsmo 06/12/2015 Review of Systems [...] Procedure Codes Date THER/PROPH/DIAG INJ SC/IM CPT-4: 59140 09/27/2016 TRIAMCINOLONE ACET INJ NOS CPT-4: J3301 09/27/2016 TRIAMCINOLONE ACET INJ NOS CPT-4: J3301 01/21/2015 Vital Signs Date Vital 09/29/2017 Blood Pressure 1: 132/84 Code : 8480-6 BMI: 34.2 Code : 36270-0 Heart Rate 1 : 85 bpm Height: 5'7" SpO2: 96% Weight: 218 lbs 8 oz 03/25/2017 Blood Pressure 1: 124/82 Code : 8480-6 BMI: 34.5 Code : 28639-4 Heart Rate 1 : 81 bpm Height: 5'7" SpO2: 96% Weight: 220 lbs 09/27/2016 Blood Pressure 1: 114/76 Code : 8480-6 BMI: 34.3 Code : 23387-8 Heart Rate 1 : 92 bpm Height: 5'7" SpO2: 95% Temperature: 36.8 (C) / 98.3 (F) Weight: 219 lbs 07/26/2016 Blood Pressure 1: 122/82 Code : 8480-6 BMI: 34.3 Code : 21686-9 Heart Rate 1 : 76 bpm Height: 5'7" SpO2: 96% Weight: 219 lbs 06/21/2016 Blood Pressure 1: 130/80 Code : 8480-6 BMI: 34.9 Code : 88580-8 Heart Rate 1 : 77 bpm Height: 5'7" SpO2: 97% Weight: 223 lbs 12/19/2015 Blood Pressure 1: 128/82 Code : 8480-6 BMI: 34.5 Code : 21308-9 Heart Rate 1 : 82 bpm Height: 5'7" SpO2: 97% Weight: 220 lbs 06/12/2015 Blood Pressure 1: 118/72 Code : 8480-6 BMI: 33.2 Code : 16580-7 Heart Rate 1 : 65 bpm Height: 5'7" SpO2: 98% Weight: 212 lbs 01/21/2015 Blood Pressure 1: 128/90 Code : 8480-6 BMI: 33.0 Code : 34322-0 Heart Rate 1 : 84 bpm Height: [...] data Encounters Encounter Performer Location Codes Date ([id number]) PREV VISIT EST AGE 40-64 Diagnosis: Encounter for general adult medical examination without abnormal findings[ICD10: Z00.00] Makayla Evangelista MD, [facility] CPT-4: 34041 09/29/2017 ([id number]) 46879 EST. PATIENT, LEVEL IV Diagnosis: Essential (primary) hypertension[ICD10: I10] Diagnosis: Mixed hyperlipidemia[ICD10: E78.2] Diagnosis: Hypothyroidism, unspecified[ICD10: E03.9] Betty Evangelista MD, [facility] CPT-4: 12310 03/25/2017 ([id number]) 82343 EST. PATIENT, LEVEL III Diagnosis: Cough[ICD10: R05] Diagnosis: Acute recurrent maxillary sinusitis[ICD10: J01.01] Betty Evangelista MD, [facility] CPT-4: 82510 09/27/2016 ([id number]) 66462 EST. PATIENT, LEVEL III Diagnosis: Essential (primary) hypertension[ICD10: I10] Diagnosis: Other obesity due to excess calories[ICD10: E66.09] Diagnosis: Unspecified ovarian cyst, right side[ICD10: N83.201] Diagnosis: Encounter for screening mammogram for malignant neoplasm of breast[ ICD10: Z12.31] Betty Evangelista MD, [facility] CPT-4: 90182 07/26/2016 ([id number]) 26791 EST. PATIENT, LEVEL IV Diagnosis: Essential (primary) hypertension[ICD10: I10] Diagnosis: Mixed hyperlipidemia[ICD10: E78.2] Diagnosis: Hypothyroidism, unspecified[ICD10: E03.9] Diagnosis: Other obesity due to excess calories[ICD10: E66.09] Betty Evangelista MD, [facility] CPT-4: 18191 06/21/2016 ([id number]) 28464 EST. PATIENT, LEVEL IV Diagnosis: Essential (primary) hypertension[ICD10: I10] Diagnosis: Mixed hyperlipidemia[ICD10: E78.2] Diagnosis: Hypothyroidism, unspecified[ICD10: E03.9] Betty Evangelista MD, [facility] CPT-4: 12201 12/19/2015 ([id number]) [id number] EST. PATIENT, LEVEL IV Diagnosis: HYPOTHYROIDISM[ICD9: 244.9] Diagnosis: HYPERLIPIDEMIA[ICD9: 272.4] Diagnosis: ESSENTIAL HYPERTENSION[ICD9: 401.9] [facility] CPT-4: 22840 06/12/2015 ([id number]) OFFICE/OUTPATIENT VISIT NEW Diagnosis: ALLERGIC RHINITIS[ICD9: 477.9] Diagnosis: ESSENTIAL HYPERTENSION[ICD9: 401.9] Betty Evangelista MD, [facility] CPT-4: 25227 01/21/2015 Plan of Care Planned Activity Notes Codes Status Date Appointment: [phone] (15 min) Moderate 10/26/2017 Appointment: [phone] [facility] [place] (15 min) Moderate 09/29/2017 Patient Education: Patient Medication Summary Completed 09/29/2017 App[facility]ment: [phone] [phone] [place] (15 min) Moderate 03/25/2017 Patient Education: Patient Medication Summary Completed 03/25/2017 Patient Education: Obesity Completed 03/25/2017 Patient Education: Patient Medication Summary Completed 03/25/2017 Appointment: Betty Suárez WPtel: [phone] [phone] (30 min) Complex 09/27/2016 Patient Education: Patient Medication Summary Completed 09/27/2016 Patient Education: Obesity Completed 09/27/2016 Appointment: Betty Suárez WPtel: [phone] (30 min) Complex 07/26/2016 Patient Education: Patient Medication Summary Completed 07/26/2016 Patient Education: Obesity Completed 07/26/2016 Appointment: Betty Suárez WPtel: [phone] (30 min) Complex 06/21/2016 Patient Education: Patient Medication Summary Completed 06/21/2016 Patient Education: Obesity Completed 06/21/2016 Care Plan: Tsh Pending 06/21/2016 Care Plan: Lipid Pending 06/21/2016 Care Plan: Free T4 Pending 06/21/2016 Care Plan: Comp Metabolic Pending 06/21/2016 Care Plan: Cbc With Differential Pending 06/21/2016 Care Plan: BMI Above normal followup SELF-MGMT EDUC & TRAIN 1 PT Pending 2015 Appointment: Betty Suárez WPtel: [phone] (15 min) Moderate 01/01/2016 Patient Education: Patient Medication Summary Completed 12/19/2015 Patient Education: Obesity Completed 12/19/2015 Patient Education: Hypertension Completed 12/19/2015 Appointment: Makayla Evangelista WPtel: [id number] [place] (15 min) Moderate 12/09/2015 Appointment: Makay[facility] Evangelista [facility]Ptel[phone] [facility] (15 min) Moderate 06/12/2015 Patient Education: Patient Medication Summary Completed 06/12/2015 Patient Education: Hypertension Completed 06/12/2015 Patient Education: Patient Medication Summary Completed 01/21/2015 Patient Education: Hypertension Completed 01/21/2015 Instructions No Instructions
--- NOTE | 2018-03-10 18:26 | ED Neurological Problem ---
General Chief Complaint: Dizziness/Syncope Stated Complaint: DIZZINESS/NAUSEA Nursing Triage Note: TO ROOM PER W/C REPORTS WAS BENDING OVER IN SHOWER THIS AM BECAME DIZZY BENT OVER TO PICK SOMETHING UP BECAME BECAME WORSE C/O NAUSE WITH. REPORTS THAT IF SHE IS STILL WITH EYES CLOSED SHE IS NOT DIZZY Nursing Sepsis Screen: No Definite Risk History of Present Illness Date Seen by Provider: Mar 10, 2018 Time Seen by Provider: 18:00 Initial Comments The patient presents to the ER by private conveyance with her significant others a chief complaint the past couple days she's been experiencing episodes of dizziness worse when she stands up from in the shower or anytime she stands up from bending over. She has no significant past when she rolls over in bed but not today. He had this for the last 12 years off and on and she says she been referred to Dr. Bundy's office where he told her to use some exercises. She was also given Antivert which helped. She is also expressing nausea when her vertigo gets very bad. She's had no history of heart attack or stroke although she does have a history of hypertension and hypercholesterolemia. She does not smoke cigarettes. She denies fevers chills rash, diarrhea. Allergies and Home Medications Allergies Coded Allergies: No Known Allergies (Verified Allergy, Unknown, 08/14/08) Home Medications Atenolol 100 Mg Tablet, 100 MG PO DAILY, (Reported) Levothyroxine Sodium 112 Mcg Tablet, 112 MCG PO DAILY, (Reported) Liothyronine Sodium 5 Mcg Tablet, 5 MCG PO DAILY, (Reported) Potassium Chloride 20 Meq Tab.prt.sr, 20 MEQ PO DAILY, (Reported) Simvastatin 40 Mg Tablet, 40 MG PO HS, (Reported) Venlafaxine Hcl 150 Mg Cap.sr.24h, 150 MG PO DAILY, (Reported) Patient Home Medication List Home Medication List Reviewed: Yes Review of Systems Constitutional: No chills, No diaphoresis Eyes: Denies Blindness, Denies Blurred Vision, Denies Drainage Ears, Nose, Mouth, Throat: denies ear pain, denies ear discharge Respiratory: No cough, No short of breath Cardiovascular: No chest pain, No edema Gastrointestinal: No abdominal pain, No constipation, No diarrhea; nausea Genitourinary: No discharge, No dysuria : No Past Sgnrzst-Mbxuch-Cegpou Hx Patient Social History Alcohol Use: Denies Use Recreational Drug Use: No Smoking Status: Never a Smoker Recent Foreign Travel: No Contact w/Someone Who Travel: No Recent Infectious Disease Expo: No Immunizations Up To Date Tetanus Booster (TDap): Unknown Past Medical History Reproductive Disorders: No Female Reproductive Disorders: Denies Sexually Transmitted Disease: No HIV/AIDS: No Hypothyroidsim Thyroid, Kidney Adverse Reaction/Blood Tranf: No Physical Exam Vital Signs Vital Signs - First Documented 03/10/18 16:52 Temp 97.1 Pulse 60 Resp 18 B/P (MAP) 126/67 (86) Pulse Ox 98 Capillary Refill : Less Than 3 Seconds General Appearance: WD/WN, no apparent distress HEENT: PERRL/EOMI, pharynx normal Neck: non-tender, normal inspection Respiratory: chest non-tender, normal breath sounds, no respiratory distress, no accessory muscle use Cardiovascular: normal peripheral pulses, regular rate, rhythm, no edema Peripheral Pulses: 2+ Radial Pulses (R), 2+ Radial Pulses (L) Gastrointestinal: non tender, soft Neurologic/Psychiatric: rear admiral II-XII nml as tested, no motor/sensory deficits, alert, normal mood/affect, oriented x 3, other (head impulse test negative. Tests for nystagmus negative. Test of skew negative. Delfino-Hallpike shows portable and horizontal nystagmus both sides in about 30-60 seconds after positioning left and right.) Progress/Results/Core Measures Results/Orders Vital Signs/I&O 03/10/18 16:52 Temp 97.1 Pulse 60 Resp 18 B/P (MAP) 126/67 (86) Pulse Ox 98 Blood Pressure Mean: 86 Progress Progress Note : Time: 18:27 Progress Note Patient is asking for Antivert which she says helped before. We will teach her some modified Sarah's maneuvers. We'll also give her some Zofran for her nausea when her vertigo gets the worst that she can premedicate with. She has seen Dr. Bundy in the past and she is been instructed that if her symptoms do not improve with the exercises she should follow-up with her primary care doctor or Dr. Bundy. Departure Impression Primary Impression: Benign paroxysmal positional vertigo Qualified Codes: H81.13 - Benign paroxysmal vertigo, bilateral Disposition: 01 HOME, SELF-CARE Condition: Stable Departure-Patient Inst. Decision time for Depature: 18:28 Referrals: SAMANTHA AGUILAR MD (PCP/Family) Primary Care Physician Patient Instructions: Vertigo (a Type of Dizziness) (DC) Add. Discharge Instructions: If you started having the vertigo perform the exercises both left and right 10 times. If you can't get your symptoms under control with the meclizine tablet, Sarah maneuvers and Zofran every 6 hours as needed for nausea then you should follow up with your primary care doctor for a referral to Dr. Bundy or other ENT /Assistant Professor Of History of your choice. All discharge instructions reviewed with patient and/or family. Voiced understanding. Scripts Ondansetron (Ondansetron Odt) 4 Mg Tab.rapdis 4 MG PO Q6H PRN for NAUSEA/VOMITING, #12 TAB 0 Refills Prov: DANIEL ROSARIO 03/10/18 Meclizine HCl (Meclizine HCl) 25 Mg Tablet 25 MG PO Q6H PRN for VERTIGO for 30 Days, #30 TAB Prov: DANIEL ROSARIO 03/10/18 Copy Copies To 1: RITU BUNDY MD; SAMANTHA AGUILAR MD, TITUS J Mar 10, 2018 18:26
[2018-03-10] MEDS ORDERED: ONDANSETRON 4 MG (ZOFRAN) ORAL DISSOLVE TAB PO ONE (18:30)
[2018-03-10] MEDS ORDERED: MECL-106 PO (18:31)
[2018-03-10] MEDS ORDERED: ONDA4TAB11 PO (18:31)
[2018-03-10 18:41] VITALS: BP 125/76
== END 2018-03-10 18:41 | disposition home or self-care (01) ==
LOC: EDUNIT# 16:23 → ER 16:25
DX: H81.13 Benign paroxysmal vertigo, bilateral (principal); E03.9 Hypothyroidism, unspecified
CPT/HCPCS: 99283

== ENCOUNTER → 2018-10-30 | Outpatient (CLI) | payer BC ==
[~2018-10-30] MED LIST changes: +MECL-106 PO; +ONDA4TAB11 PO
== END ==
LOC: SLEEP 16:01
PROVIDERS: ATTEND Family Medicine
DX: G47.36 Sleep related hypoventilation in conditions classified elsewhere (principal); G47.10 Hypersomnia, unspecified; R06.83 Snoring; I10 Essential (primary) hypertension

== ENCOUNTER 2019-01-23 20:49 | Outpatient (CLI) | payer BC | END 2019-01-24 06:50 | disposition home or self-care (01) | LOC: SLEEP 20:49 | PROVIDERS: ATTEND Nurse Practitioner | DX: G47.33 Obstructive sleep apnea (adult) (pediatric) (principal) | CPT/HCPCS: 95811 ==

== ENCOUNTER 2019-03-05 21:02 | Outpatient (CLI) | payer BC | END 2019-03-06 06:20 | disposition home or self-care (01) | LOC: SLEEP 21:02 | PROVIDERS: ATTEND Otolaryngology Otolaryngology/Facial Plastic Surgery | DX: G47.33 Obstructive sleep apnea (adult) (pediatric) (principal); G47.31 Primary central sleep apnea | CPT/HCPCS: 95811 ==

== ENCOUNTER → 2019-04-02 | Outpatient (CLI) | payer BC ==
--- NOTE | 2019-04-02 19:01 | Diagnostic Imaging Report ---
INDICATION: Routine screening. COMPARISON: Comparison is made with prior mammograms from 12/30/2017 and 08/19/2016. TECHNIQUE: 2-D and 3-D bilateral screening mammography was performed. The current study was also evaluated with a Computer Aided Detection (CAD) system. 3-D tomosynthesis was also performed and reviewed. FINDINGS: Scattered fibroglandular densities are identified bilaterally. The parenchymal pattern is stable. No mass or malignant-appearing microcalcifications are seen. Axillae are unremarkable. IMPRESSION: No mammographic features suspicious for malignancy are identified. ACR BI-RADS Category 1: Negative. Result letter will be mailed to the patient. Note: At least 10% of breast cancer is not imaged by mammography. Dictated by: Dictated on workstation # [id number]
== END ==
LOC: RAD 07:42
PROVIDERS: ATTEND Nurse Practitioner Family
DX: Z12.31 Encounter for screening mammogram for malignant neoplasm of breast (principal)
CPT/HCPCS: 77067

== ENCOUNTER → 2020-02-14 | Outpatient (CLI) | payer BC ==
[~2020-02-14] MED LIST changes: -MECL-106 PO; +MECL-149 PO
== END ==
LOC: LAB 08:56
PROVIDERS: ATTEND Family Medicine
DX: J98.9 Respiratory disorder, unspecified (principal); Z20.828 Contact with and (suspected) exposure to other viral communicable diseases
CPT/HCPCS: 86769

== ENCOUNTER → 2020-05-16 | Outpatient (CLI) | payer BC ==
--- NOTE | 2020-05-16 14:07 | Diagnostic Imaging Report ---
INDICATION: Routine screening. Comparison is made with prior mammogram from 04/02/2019 and 12/30/2017. 2-D and 3-D bilateral screening mammography was performed with CAD. Scattered fibroglandular densities are identified bilaterally. The parenchymal pattern is stable. No mass or malignant appearing microcalcifications are seen. Axillae are unremarkable. IMPRESSION: BI-RADS Category 1 No mammographic features suspicious for malignancy are identified. ACR BI-RADS Category 1: Negative. Result letter will be mailed to the patient. Note: At least 10% of breast cancer is not imaged by mammography. Dictated by: Dictated on workstation # [id number]
== END ==
LOC: RAD 08:45
PROVIDERS: ATTEND Nurse Practitioner Family
DX: Z12.31 Encounter for screening mammogram for malignant neoplasm of breast (principal); Z20.828 Contact with and (suspected) exposure to other viral communicable diseases
CPT/HCPCS: 77063; 77067

== ENCOUNTER 2020-08-20 05:52 | Outpatient (RCR) | payer BC ==
[~2020-08-20] VITALS: Ht 170 cm; Wt 90.9 kg
[~2020-08-20 05:52] MED LIST changes: +ATEN100T PO; +BIMA2.5D4 OP; +LEVO112T55 PO; +LIOT5TAB10 PO; +SIMV40TA25 PO
== END 2020-08-20 10:09 | disposition home or self-care (01) ==
LOC: PREOP 05:52
PROVIDERS: ATTEND Specialist
DX: Z01.812 Encounter for preprocedural laboratory examination (principal); H25.9 Unspecified age-related cataract; Z20.828 Contact with and (suspected) exposure to other viral communicable diseases
CPT/HCPCS: 87635

== ENCOUNTER 2020-08-27 05:36 | Outpatient (RCR) | payer BC ==
[~2020-08-27] VITALS: Ht 170 cm; Wt 90.9 kg
== END 2020-08-27 11:33 | disposition home or self-care (01) ==
LOC: PREOP 05:36
PROVIDERS: ATTEND Specialist
DX: Z01.818 Encounter for other preprocedural examination (principal); H25.12 Age-related nuclear cataract, left eye; Z20.828 Contact with and (suspected) exposure to other viral communicable diseases
CPT/HCPCS: 87635

== ENCOUNTER 2020-08-29 08:02 | Day surgery (SDC) | payer BC ==
[~2020-08-29] VITALS: Ht 170 cm; Wt 90.9 kg
[2020-08-29] MEDS ORDERED: LIDOCAINE PF 1% 2 ML VIAL IR PRN (08:15)
[2020-08-29] MEDS ORDERED: MOXIFLOXACIN OPHTH SOLN 5 MG/ML 0.3 ML SYRINGE OP ONE (08:15)
[2020-08-29] MEDS ORDERED: TIMOLOL MALEATE 0.5% 5 ML (TIMOPTIC) BTL OU PRN (08:15)
[2020-08-29] MEDS ORDERED: POVIDONE (BETADINE) OPHTH SOLN 5% 30 ML OP ONE (08:15)
[2020-08-29] MEDS: TETRACAINE 0.5% OPHTH SOLN 4 ML BTL (SINGLE DOSE ONLY) OU PRN ×4 (08:22→08:55)
[2020-08-29 08:27] VITALS: BP 152/84
[2020-08-29] MEDS: TROPICAMIDE 1% OPH SOLN (MYDRIACYL) 15 ML BTL OP SCH ×3 (08:30→08:55)
[2020-08-29] MEDS: PHENYLEPHRINE 10% OPHTH (NEO-SYN) 5 ML BTL OU SCH ×3 (08:31→08:55)
[2020-08-29] MEDS ORDERED: MIDAZOLAM 2 MG/2 ML (VERSED) VIAL ONE (08:54)
--- NOTE | 2020-08-29 09:10 | Ophthalmologist Pre-Op Note ---
Pre-Operative Progress Note H&P Reviewed The H&P was reviewed, patient examined and no changes noted. Date H&P Reviewed: Aug 29, 2020 Time H&P Reviewed: 09:09 Pre-Op Dx Cataract, Left Eye STEPHANIE CASTOR MD Aug 29, 2020 09:10
--- NOTE | 2020-08-29 09:31 | Ophthalmology Operative Report ---
Cataract removal/placement IOL PREOPERATIVE DIAGNOSIS: Cataract Left Eye POSTOPERATIVE DIAGNOSIS: Cataract Left Eye PROCEDURE: Cataract removal and placement of posterior chamber implant, left eye SURGEON: Anatoly Castro ANESTHESIA: Topical with sedation COMPLICATIONS: None ESTIMATED BLOOD LOSS: Minimal DESCRIPTION OF PROCEDURE: After proper informed consent was obtained, the patient, a 65 female, was taken to the Operating Room and the left eye was anesthetized with tetracaine. The left eye was then prepped and draped in the usual manner. A wire lid speculum was placed. A paracentesis was made at the left hand position. Preservative free lidocaine was injected into the anterior chamber followed by viscoelastic. A clear corneal incision was made in the temporal position. A capsulorrhexis was preformed and the central nuclear and cortical material were removed. The posterior capsule was polished and an Bandar 23.0 AU00T0 was placed into the capsular bag. The residual viscoelastic was aspirated and balanced saline solution was injected into the anterior chamber. Moxifloxacin was injected into the anterior chamber. The wound was checked and found to be water tight. The patient tolerated the procedure well without complications. ANATOLY CASTRO MD Aug 29, 2020 09:31
[2020-08-29 09:45] VITALS: BP 145/78
[2020-08-29] MEDS ORDERED: acetaZOLAMIDE ER 500 MG CAP (DIAMOX SEQUELS) PO ONE (11:00)
--- NOTE | 2020-08-29 11:35 | Anesthesia-General Post-Op ---
MAC Patient Condition Mental Status/LOC: Same as Preop Cardiovascular: Satisfactory Nausea/Vomiting: Absent Respiratory: Satisfactory Pain: Controlled Complications: Absent Post Op Complications Complications None Follow Up Care/Instructions Patient Instructions None needed. Anesthesiology Discharge Order Discharge Order Patient is doing well, no complaints, stable vital signs, no apparent adverse anesthesia problems. No complications reported per nursing. WALI PATEL CRNA Aug 29, 2020 11:35
== END 2020-08-29 09:45 | disposition home or self-care (01) ==
LOC: SDC 08:02
PROVIDERS: ATTEND Specialist
DX: H25.12 Age-related nuclear cataract, left eye (principal); I10 Essential (primary) hypertension; F41.9 Anxiety disorder, unspecified; F32.9 Major depressive disorder, single episode, unspecified; E78.00 Pure hypercholesterolemia, unspecified; Z79.899 Other long term (current) drug therapy; Z83.3 Family history of diabetes mellitus
CPT/HCPCS: 66984; V2632

== ENCOUNTER 2020-09-03 05:41 | Outpatient (RCR) | payer BC ==
[~2020-09-03] VITALS: Ht 170 cm; Wt 90.9 kg
== END 2020-09-03 13:04 | disposition home or self-care (01) ==
LOC: PREOP 05:41
PROVIDERS: ATTEND Specialist
DX: Z01.812 Encounter for preprocedural laboratory examination (principal); Z20.828 Contact with and (suspected) exposure to other viral communicable diseases
CPT/HCPCS: 87635

== ENCOUNTER 2020-09-05 08:30 | Day surgery (SDC) | payer BC ==
[~2020-09-05] VITALS: Ht 170 cm; Wt 90.9 kg
[2020-09-05 08:30] VITALS: BP 124/76
[2020-09-05] MEDS: TETRACAINE 0.5% OPHTH SOLN 4 ML BTL (SINGLE DOSE ONLY) OU PRN ×4 (08:43→09:17)
[2020-09-05] MEDS ORDERED: LIDOCAINE PF 1% 2 ML VIAL IR PRN (08:45)
[2020-09-05] MEDS ORDERED: TIMOLOL MALEATE 0.5% 5 ML (TIMOPTIC) BTL OU PRN (08:45)
[2020-09-05] MEDS ORDERED: POVIDONE (BETADINE) OPHTH SOLN 5% 30 ML OP ONE (08:45)
[2020-09-05] MEDS ORDERED: MOXIFLOXACIN OPHTH SOLN 5 MG/ML 0.3 ML SYRINGE OP ONE (08:45)
[2020-09-05] MEDS: TROPICAMIDE 1% OPH SOLN (MYDRIACYL) 15 ML BTL OP SCH ×3 (08:58→09:17)
[2020-09-05] MEDS: PHENYLEPHRINE 10% OPHTH (NEO-SYN) 5 ML BTL OU SCH ×3 (08:58→09:17)
--- NOTE | 2020-09-05 09:35 | Ophthalmologist Pre-Op Note ---
Pre-Operative Progress Note H&P Reviewed The H&P was reviewed, patient examined and no changes noted. Date H&P Reviewed: Sep 05, 2020 Time H&P Reviewed: 09:35 Pre-Op Dx Cataract, Right Eye STEPHANIE CASTRO MD Sep 05, 2020 09:35
[2020-09-05] MEDS ORDERED: MIDAZOLAM 2 MG/2 ML (VERSED) VIAL ONE (09:36)
--- NOTE | 2020-09-05 09:58 | Ophthalmology Operative Report ---
Cataract removal/placement IOL PREOPERATIVE DIAGNOSIS: Cataract Right Eye POSTOPERATIVE DIAGNOSIS: Cataract Right Eye PROCEDURE: Cataract removal and placement of posterior chamber implant, right eye SURGEON: Antaoly Castro ANESTHESIA: Topical with sedation COMPLICATIONS: None ESTIMATED BLOOD LOSS: Minimal DESCRIPTION OF PROCEDURE: After proper informed consent was obtained, the patient, a 65 female, was taken to the Operating Room and the right eye was anesthetized with tetracaine. The right eye was then prepped and draped in the usual manner. A wire lid speculum was placed. A paracentesis was made at the left hand position. Preservative free lidocaine was injected into the anterior chamber followed by viscoelastic. A clear corneal incision was made in the temporal position. A capsulorrhexis was preformed and the central nuclear and cortical material were removed. The posterior capsule was polished and Bandar 22.5 AU00T0 IOL was placed into the capsular bag. The residual viscoelastic was aspirated and balanced saline solution was injected into the anterior chamber. Moxifloxacin was injected into the anterior chamber. The wound was checked and found to be water tight. The patient tolerated the procedure well without complications. ANATOLY CASTRO MD Sep 05, 2020 09:57
[2020-09-05] MEDS ORDERED: acetaZOLAMIDE ER 500 MG CAP (DIAMOX SEQUELS) PO ONE (10:00)
[2020-09-05 10:15] VITALS: BP 146/83
--- NOTE | 2020-09-05 10:22 | Anesthesia-General Post-Op ---
MAC Patient Condition Mental Status/LOC: Same as Preop Cardiovascular: Satisfactory Nausea/Vomiting: Absent Respiratory: Satisfactory Pain: Controlled Complications: Absent Post Op Complications Complications None Follow Up Care/Instructions Patient Instructions None needed. Anesthesiology Discharge Order Discharge Order Patient is doing well, no complaints, stable vital signs, no apparent adverse anesthesia problems. No complications reported per nursing. MARIUM YOUNG CRNA Sep 05, 2020 10:22
== END 2020-09-05 10:15 | disposition home or self-care (01) ==
LOC: SDC 08:30
PROVIDERS: ATTEND Specialist
DX: H25.11 Age-related nuclear cataract, right eye (principal); I10 Essential (primary) hypertension; F41.9 Anxiety disorder, unspecified; F32.9 Major depressive disorder, single episode, unspecified; E78.00 Pure hypercholesterolemia, unspecified; Z79.899 Other long term (current) drug therapy; Z83.3 Family history of diabetes mellitus
CPT/HCPCS: 66984; V2632

== ENCOUNTER → 2021-01-06 | Outpatient (CLI) | payer BC ==
[~2021-01-06] MED LIST changes: +CATHETER FLUSH 10 ML SYR IV PRN; +HOLD METFORMIN - RECEIVED CONTRAST 20 ML VIAL IV SCH; +IOHEXOL 350 MG/ML 100 ML (OMNIPAQUE 350) VIAL IV ONE; +NS 100 ML (IVPB) BAG IV ONE
[2021-01-06 08:55] LABS: CREATININE SERUM 0.96 MG/DL (0.60-1.30)
--- NOTE | 2021-01-06 10:56 | Diagnostic Imaging Report ---
PROCEDURE: CT abdomen and pelvis with contrast. TECHNIQUE: Multiple contiguous axial images were obtained through the abdomen and pelvis after administration of intravenous contrast. Auto Exposure Controls were utilized during the CT exam to meet ALARA standards for radiation dose reduction. All CT scans use one or more of the following dose optimizing techniques: automated exposure control, MA and/or KvP adjustment based on patient size and exam type or iterative reconstruction. 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 Most recent comparison is dated 12/25/2015. FINDINGS: Post-therapeutic changes to the left kidney are stable with no evidence for neoplastic recurrence. There is no hydroureteronephrosis. 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 There is no hydronephrosis. There is no perinephric or retroperitoneal adenopathy. No abdominal lymphadenopathy. Thin-walled unilocular right adnexal cyst is unchanged from 2016 consistent with benign etiology measuring 4.6 cm. Uterus and left adnexa normal. There is no ascites, abscess, hematoma or acute fluid collection. The appendix surgically absent. There is no diverticulitis. The liver density is consistent with underlying fatty infiltration this may have progressed. No bile duct dilatation. Some incidental duodenal diverticulum nonobstructing. The adrenals, spleen and pancreas normal. IMPRESSION: 1. Stable postsurgical changes to the left kidney without evidence for neoplastic recurrence or metastatic disease. 2. Stable benign right adnexal/ovarian cyst. 3. Fatty infiltration of the liver with nonacute pancreas. Dictated by: Dictated on workstation # [id number]
== END ==
LOC: RAD 09:45
PROVIDERS: ATTEND Nurse Practitioner Family
DX: K76.0 Fatty (change of) liver, not elsewhere classified (principal); Z85.528 Personal history of other malignant neoplasm of kidney; Z90.5 Acquired absence of kidney
CPT/HCPCS: 36415; 74177; 82565; 84520

== ENCOUNTER → 2021-05-18 | Outpatient (CLI) | payer BC ==
[~2021-05-18] MED LIST changes: -CATHETER FLUSH 10 ML SYR IV PRN; -HOLD METFORMIN - RECEIVED CONTRAST 20 ML VIAL IV SCH; -IOHEXOL 350 MG/ML 100 ML (OMNIPAQUE 350) VIAL IV ONE; -NS 100 ML (IVPB) BAG IV ONE
--- NOTE | 2021-05-18 11:10 | Diagnostic Imaging Report ---
INDICATION: Routine screening. COMPARISON: 05/16/2020 and 04/02/2019. TECHNIQUE: 2D and 3D bilateral screening mammography was performed with CAD. FINDINGS: Scattered fibroglandular densities are identified bilaterally. No mass or malignant-appearing microcalcifications are seen. The axillae are unremarkable. IMPRESSION: No mammographic features suspicious for malignancy are identified. ACR BI-RADS Category 1: Negative. Result letter will be mailed to the patient. Note: At least 10% of breast cancer is not imaged by mammography. Dictated by: Dictated on workstation # [id number]
== END ==
LOC: RAD 08:45
PROVIDERS: ATTEND Family Medicine
DX: Z12.31 Encounter for screening mammogram for malignant neoplasm of breast (principal)
CPT/HCPCS: 77063; 77067

== ENCOUNTER 2021-06-01 11:51 | Outpatient (CLI) | payer BC ==
[~2021-06-01] VITALS: Ht 170.2 cm; Wt 102.1 kg
[2021-06-01 11:42] VITALS: BP 175/88
[2021-06-01] MEDS ORDERED: diphenhydrAMINE 50 MG/ML INJ (BENADRYL) IV PRN (12:15)
[2021-06-01] MEDS ORDERED: ACETAMINOPHEN 500 MG TAB (TYLENOL) PO PRN (12:15)
[2021-06-01] MEDS ORDERED: ONDANSETRON 4 MG/2 ML (SDV) Z0FRAN IV PRN (12:15)
[2021-06-01] MEDS ORDERED: EPINEPHrine INJECTION 1 MG/ML AMP IM PRN (12:15)
[2021-06-01] MEDS ORDERED: CASIRIVIMAB/IMDEVIMAB 1,200 MG in NS (IVPB) 250 ML IV ONE (12:15)
[2021-06-01 13:35] VITALS: BP 168/80
== END 2021-06-01 14:10 | disposition home or self-care (01) ==
LOC: INFUSION 11:51
PROVIDERS: ATTEND Nurse Practitioner Family
DX: Z23 Encounter for immunization (principal); U07.1 COVID-19

== ENCOUNTER 2021-12-10 06:33 | Outpatient (CLI) | payer BC, MEDICARE ==
[~2021-12-10] VITALS: Ht 170.2 cm; Wt 110.3 kg
[2021-12-10] MEDS ORDERED: LEVO125T6 PO (12:32)
[2021-12-10] MEDS ORDERED: ALPR0.5T7 PO (12:32)
== END 2021-12-10 12:32 ==
LOC: PREOP 06:33
PROVIDERS: ATTEND Surgery
DX: Z01.818 Encounter for other preprocedural examination (principal)

== ENCOUNTER 2021-12-22 11:25 | Day surgery (SDC) | payer BC, MEDICARE ==
[~2021-12-22] VITALS: Ht 170.2 cm; Wt 110.3 kg
[~2021-12-22 11:25] MED LIST changes: +ALPR0.5T7 PO; +LEVO125T6 PO
[2021-12-22] MEDS ORDERED: LACTATED RINGERS 1,000 ML IV ONE ×2 (11:30→12:57)
[2021-12-22] MEDS ORDERED: LACTATED RINGERS 1,000 ML IV STA (11:33)
[2021-12-22 11:45] VITALS: BP 138/88
[2021-12-22] MEDS ORDERED: ONDANSETRON 4 MG/2 ML (SDV) Z0FRAN ONE (12:04)
[2021-12-22] MEDS ORDERED: PROPOFOL INJECTION 50 ML IV ONE (12:34)
--- NOTE | 2021-12-22 12:56 | Progress Note-Pre Operative ---
Pre-Operative Progress Note H&P Reviewed The H&P was reviewed, patient examined and no changes noted. Date Seen by Provider: Dec 22, 2021 Time Seen by Provider: 12:56 Date H&P Reviewed: Dec 22, 2021 Time H&P Reviewed: 12:56 Pre-Operative Diagnosis: screening colonoscopy OLAF HOLLAND DO Dec 22, 2021 12:56
--- NOTE | 2021-12-22 13:37 | Anesthesia-General Post-Op ---
MAC Patient Condition Mental Status/LOC: Same as Preop Cardiovascular: Satisfactory Nausea/Vomiting: Absent Respiratory: Satisfactory Pain: Controlled Complications: Absent Post Op Complications Complications None Follow Up Care/Instructions Patient Instructions None needed. Anesthesiology Discharge Order Discharge Order Patient is doing well, no complaints, stable vital signs, no apparent adverse anesthesia problems. No complications reported per nursing. CELESTINA HERNADEZ CRNA Dec 22, 2021 13:37
--- NOTE | 2021-12-22 13:39 | Progress Note-Post Operative ---
Post-Operative Progess Note Surgeon (s)/Tour Counselor (s) Surgeon OLAF HOLLAND DO Tour Counselor: na Pre-Operative Diagnosis screening colonoscopy Post-Operative Diagnosis colon polyps, diverticulosis Procedure & Operative Findings Date of Procedure 12/22/21 Procedure Performed/Findings colonoscopy c hot bx polypectomy x 5 Anesthesia Type per nozzleman Estimated Blood Loss Estimated blood loss (mL): none Specimens/Packing Specimens Removed colon polyps OLAF HOLLAND DO Dec 22, 2021 13:39
[2021-12-22 13:40] VITALS: BP 131/76
--- NOTE | 2021-12-22 13:40 | Discharge Inst-Simple/Standard ---
Discharge Inst-Standard Patient Instructions/Follow Up Plan of Care/Instructions/FU: 2 weeks henry Activity as Tolerated: Yes Discharge Diet: Regular Diet (high fiber) OLAF HOLLAND DO Dec 22, 2021 13:40
[2021-12-22 14:05] VITALS: BP 139/82
--- NOTE | 2021-12-22 18:00 | OPERATIVE REPORT ---
DATE OF SERVICE: 12/22/2021 PREOPERATIVE DIAGNOSIS: Screening colonoscopy. POSTOPERATIVE DIAGNOSES: Colon polyps, diverticulosis. PROCEDURE: Colonoscopy with hot biopsy polypectomy x5. SURGEON: Olaf Bojorquez DO ANESTHESIA: Per PAPER MACHINE SUPERVISOR. ESTIMATED BLOOD LOSS: None. COMPLICATIONS: None. INDICATIONS: The patient is a 66-year-old female needing screening colonoscopy. She understands risks and benefits of procedure and wishes to proceed. Consent was signed in the chart. DESCRIPTION OF PROCEDURE: The patient was taken to the endoscopy suite, placed in left lateral recumbent position. Timeout was performed. Digital rectal exam was performed. No palpable polyps, masses or ulcerations. Slight hemorrhoidal disease. Scope was inserted in the rectum and advanced all the way to cecum with minimal difficulty. Prep was adequate. Scope was then slowly retracted back and also using SHAKIRA changes. No polyps, masses or ulcerations within the cecum. In the ascending colon, there was one small polyp, which hot biopsy polypectomy was performed. Scope was then continuously retracted back. No polyps within the remainder of the ascending, transverse, descending colon. In sigmoid colon, two small polyps were present, which hot biopsy polypectomies were performed. Also, a minimal amount of diverticulosis present. Once in the rectum, two other small polyps were present, which hot biopsy polypectomy was performed. Scope was retroflexed noting no other pathology. Scope was returned to its normal position, slowly withdrawn until completely removed. The patient tolerated procedure well without any complications. She was taken to recovery room in stable condition. RECOMMENDATIONS: The patient will need repeat colonoscopy in 5 years due to polyps. We would recommend high fiber diet due to diverticulosis. Any issues before that should be reevaluated at that time. Job ID: [id number] DocumentID: [id number] Dictated Date: 12/22/2021 13:42:31 Internal Recruiter Date: 12/22/2021 18:00:05 Dictated By: OLAF BOJORQUEZ DO
== END 2021-12-22 16:15 | disposition home or self-care (01) ==
LOC: ENDO 11:25
PROVIDERS: ATTEND Surgery
DX: Z12.11 Encounter for screening for malignant neoplasm of colon (principal); K63.5 Polyp of colon; K62.1 Rectal polyp; K57.30 Diverticulosis of large intestine without perforation or abscess without bleeding; K64.9 Unspecified hemorrhoids; Z85.528 Personal history of other malignant neoplasm of kidney; Z85.850 Personal history of malignant neoplasm of thyroid

== ENCOUNTER → 2022-07-09 | Outpatient (CLI) | payer MEDICARE ==
[~2022-07-09] MED LIST changes: +VENL150C3 PO
--- NOTE | 2022-07-09 11:36 | Diagnostic Imaging Report ---
Indication: Routine screening. Comparison is made to prior mammogram 05/18/2021 and 05/16/2020. 2-D and 3-D bilateral screening mammography was performed with CAD. CAD is utilized. The current study was also evaluated with a Computer Aided Detection (CAD) system. Scattered fibroglandular densities are identified bilaterally. No mass or malignant-appearing microcalcifications are seen. Axillae are unremarkable. IMPRESSION: BI-RADS Category 1 No mammographic features suspicious for malignancy are identified. ACR BI-RADS Category 1: Negative. Result letter will be mailed to the patient. Note: At least 10% of breast cancer is not imaged by mammography. Dictated by: Dictated on workstation # [id number]
== END ==
LOC: RAD 10:25
PROVIDERS: ATTEND Nurse Practitioner Family
DX: Z12.31 Encounter for screening mammogram for malignant neoplasm of breast (principal)
CPT/HCPCS: 77063; 77067

== ENCOUNTER → 2023-07-11 | Outpatient (CLI) | payer MEDICARE ==
[~2023-07-11] MED LIST changes: -MECL-149 PO; +MECL-291 PO
--- NOTE | 2023-07-11 11:15 | Diagnostic Imaging Report ---
INDICATION: Routine screening. COMPARISON: 07/09/2022 and 05/18/2021. TECHNIQUE: 2D and 3D bilateral screening mammography was performed with CAD. FINDINGS: Scattered fibroglandular densities are identified bilaterally. The parenchymal pattern is stable. No mass or malignant-appearing microcalcifications are seen. The axillae are unremarkable. IMPRESSION: No mammographic features suspicious for malignancy are identified. ACR BI-RADS Category 1: Negative. Result letter will be mailed to the patient. Note: At least 10% of breast cancer is not imaged by mammography. Dictated by: Dictated on workstation # [id number]
== END ==
LOC: RAD 08:24
PROVIDERS: ATTEND Nurse Practitioner Family
DX: Z12.31 Encounter for screening mammogram for malignant neoplasm of breast (principal)
CPT/HCPCS: 77063; 77067